=== PATIENT | female | born 2000 | race Caucasian/White ===

== ENCOUNTER 2020-08-16 09:58 | Outpatient (REF) | payer OTHER, SELFPAY | END 2020-08-16 09:59 | disposition home or self-care (01) | LOC: HO.LAB 09:58 | PROVIDERS: PCP Nurse Practitioner Family; Visit Provider Internal Medicine | DX: Z13.89 Encounter for screening for other disorder (principal) ==

== ENCOUNTER 2020-08-17 07:17 | Outpatient (REF) | payer OTHER, SELFPAY ==
[2020-08-17 08:09] LABS: Anion Gap 12 (12-20); Blood Urea Nitrogen 13 mg/dL (9-16); Carbon Dioxide 20 mmol/L (22-29); Chloride 109 mmol/L (96-108); Estimated Glomerular Filt Rate > 60; Glucose Random 88 mg/dL (60-115); Potassium 3.8 mmol/L (3.3-5.1); Sodium 137 mmol/L (135-145)
[2020-08-17 08:31] LABS: Free T4 (Free Thyroxine) 1.18 ng/dL (0.71-1.85); Thyroid Stimulating Hormone 2.31 uIU/mL (0.32-4.0)
[2020-08-18 10:31] LABS: Follicle Stimulating Hormone 5.9 mIU/mL; Lutenizing Hormone 6.2 mIU/mL; Prolactin 50.2 ng/mL; Triiodothyronine T3 Total 184 ng/dL (86-192)
[2020-08-19 17:32] LABS: Human Growth Hormone 1.1 ng/mL (< OR = 7.1)
[2020-08-19 21:27] LABS: Sex Hormone Binding Globulin 196 nmol/L (17-124)
[2020-08-19 23:01] LABS: Adrenocorticotropic Hormone 17 pg/mL (6-50)
[2020-08-21 19:52] LABS: Estradiol Ultra Sensitive 14 pg/mL
[2020-08-22 17:37] LABS: IGF-1 (Somatomedin C) 109 ng/mL (83-456); IGF-1 Z Score (Female) -1.8 SD (-2.0 - +2.0)
== END 2020-08-17 07:18 | disposition home or self-care (01) ==
LOC: HO.LAB 07:17
PROVIDERS: PCP Nurse Practitioner Family; Visit Provider Internal Medicine
DX: D35.2 Benign neoplasm of pituitary gland (principal)
CPT/HCPCS: 36415; 80048; 82024; 82533; 82670; 83001; 83002; 83003; 84146; 84270; 84305; 84439; 84443; 84480

== ENCOUNTER 2020-09-10 09:09 | Outpatient (REF) | payer OTHER, SELFPAY ==
--- NOTE | ~2020-09-10 | MR_ITS ---
EXAMINATION: MR BRAIN WITHOUT AND WITH CONTRAST CLINICAL INFORMATION: 19-year-old with question for pituitary microadenoma. COMPARISON: 08/11/2018 TECHNIQUE: Multiplanar, multisequence MRI of the brain was obtained before and after the intravenous administration of 5 mL Gadavist. FINDINGS: There is some motion artifact on these sequences, but within these limitations, the pituitary gland shows mildly heterogeneous enhancement without a discrete focal lesion and is unchanged in appearance from the previous exam. Cavernous sinuses enhance normally. No suprasellar or juxtasellar masses. The infundibulum enhances normally and appears midline and unchanged. No restricted diffusion is identified. The brain is normal in morphology and signal intensity, unchanged in appearance. No intracranial mass lesions, abnormal enhancement, space-occupying process, or mass effect are identified. The ventricular system and subarachnoid spaces appear within normal limits without hydrocephalus, stable in appearance. The visualized orbital structures are grossly unremarkable within the limitations of the study. Normal signal voids are noted in the visualized major intracranial vessels. Redemonstrated is suspicion for bilateral upper cervical lymphadenopathy, similar in appearance to the previous study with a prominent right pharyngeal tonsil, stable in appearance. Correlate with clinical history. MR/MR head/brain wo/w con IMPRESSION: 1. No significant interval change in the appearance of the pituitary gland. Somewhat heterogeneous enhancement without a discrete focal lesion is identified. No suprasellar or juxtasellar masses are seen. 2. Remainder of the brain is normal in morphology and signal. 3. Suspect upper cervical lymphadenopathy, as noted on previous study, similar in appearance and a prominent right pharyngeal tonsil, unchanged. Followup clinically.
== END 2020-09-10 09:10 | disposition home or self-care (01) ==
LOC: HO.MRI 09:09
PROVIDERS: Visit Provider Internal Medicine
DX: D35.2 Benign neoplasm of pituitary gland (principal)
CPT/HCPCS: 70553; A9585

== ENCOUNTER → 2020-09-23 11:46 | Outpatient (BNVA) | payer OTHER, SELFPAY | PROVIDERS: PCP Nurse Practitioner Family; Visit Provider Internal Medicine ==

== ENCOUNTER 2020-09-27 15:34 | Outpatient (REF) | payer OTHER, SELFPAY ==
--- NOTE | ~2020-09-27 | US_ITS ---
EXAMINATION: US SOFT TISSUE OF THE NECK CLINICAL INFORMATION: Localized enlarged lymph nodes. COMPARISON: None TECHNIQUE: Linear transducer grayscale and color Doppler examination of the neck. FINDINGS: There are bilateral cervical lymph nodes. These are normal in size and demonstrate normal ultrasound morphology and flow. There are 4 lymph nodes seen in the right neck and 3 lymph nodes seen in the left neck. There is a single lymph node seen in the mid line neck inferior to the thyroid gland. US/US soft tiss head and/or neck IMPRESSION: Small bilateral normal-appearing cervical lymph nodes.
== END 2020-09-27 15:35 | disposition home or self-care (01) ==
LOC: HO.US 15:34
PROVIDERS: PCP Nurse Practitioner Family; Visit Provider Internal Medicine
DX: R59.0 Localized enlarged lymph nodes (principal)
CPT/HCPCS: 76536

== ENCOUNTER 2020-10-04 07:36 | Outpatient (REF) | payer OTHER, SELFPAY ==
[2020-10-07 15:12] LABS: Adrenocorticotropic Hormone 6 pg/mL (6-50)
[2020-10-08 21:02] LABS: Dexamethasone 186 ng/dL
== END 2020-10-04 07:37 | disposition home or self-care (01) ==
LOC: HO.LAB 07:36
PROVIDERS: PCP Nurse Practitioner Family; Visit Provider Internal Medicine
DX: D35.2 Benign neoplasm of pituitary gland (principal)
CPT/HCPCS: 36415; 80299; 82024; 82533

== ENCOUNTER 2020-10-15 08:19 | Outpatient (REF) | payer OTHER, SELFPAY ==
--- NOTE | ~2020-10-15 | XR_ITS ---
EXAMINATION: XR CERVICAL SPINE CLINICAL INFORMATION: Cervicalgia. COMPARISON: None TECHNIQUE: 3 views of the cervical spine were obtained. FINDINGS: Reversal of the normal cervical lordosis, which may be positional or related to muscular spasm. No acute fracture or subluxation. No loss of vertebral body or intervertebral disc height. Normal atlantoaxial alignment. No lytic or blastic osseous lesion. Unremarkable prevertebral soft tissues. XR/XR cervical spine 3V IMPRESSION: Reversal of the normal cervical lordosis, which may be positional or related to muscular spasm.
== END 2020-10-15 08:20 | disposition home or self-care (01) ==
LOC: HO.HMGCX 08:19
PROVIDERS: Visit Provider Nurse Practitioner Family
DX: M54.2 Cervicalgia (principal)
CPT/HCPCS: 72040

== ENCOUNTER → 2020-11-06 09:37 | Outpatient (BNVA) | payer OTHER, SELFPAY | PROVIDERS: PCP Nurse Practitioner Family; Visit Provider Internal Medicine ==

== ENCOUNTER 2020-12-07 07:06 | Outpatient (REF) | payer OTHER, SELFPAY ==
[2020-12-07 08:05] LABS: Anion Gap 12 (12-20); Blood Urea Nitrogen 13 mg/dL (9-16); Calcium 8.9 mg/dL (8.4-10.2); Carbon Dioxide 23 mmol/L (22-29); Chloride 108 mmol/L (96-108); Estimated Glomerular Filt Rate > 60; Glucose Random 86 mg/dL (60-115); Sodium 139 mmol/L (135-145)
[2020-12-07 08:29] LABS: Free T4 (Free Thyroxine) 1.17 ng/dL (0.71-1.85); Thyroid Stimulating Hormone 2.76 uIU/mL (0.32-4.0); Vitamin D 25-OH Total 51.2 ng/mL (>30)
[2020-12-09 20:17] LABS: Triiodothyronine T3 Total 136 ng/dL (76-181)
[2020-12-10 03:07] LABS: Prolactin Undiluted 56.2 ng/mL
== END 2020-12-07 07:07 | disposition home or self-care (01) ==
LOC: HO.LAB 07:06
PROVIDERS: PCP Nurse Practitioner Family; Visit Provider Internal Medicine
DX: D35.2 Benign neoplasm of pituitary gland (principal); E55.9 Vitamin D deficiency, unspecified
CPT/HCPCS: 36415; 80048; 82306; 84146; 84439; 84443; 84480

== ENCOUNTER 2020-12-10 07:57 | Outpatient (REF) | payer OTHER, SELFPAY ==
--- NOTE | 2020-12-10 07:56 | EEG_ITS ---
FINDINGS: The waking background activity consists of a well-defined 8 to 9 hertz moderate voltage alpha frequency, intermixed anteriorly with low-voltage fast frequencies. Photic stimulation is without activation. Hyperventilation was omitted. Occasional isolated sharp transients are seen in the frontal regions. IMPRESSION: This EEG is generally considered within normal limits; however, a few isolated sharp transients are suggestive of some element of cerebral irritability. If a seizure disorder is strongly suspected, a 24-hour ambulatory EEG is recommended. MD DEMETRA Barrios/ALEISHA / [id number]
== END 2020-12-10 07:58 | disposition home or self-care (01) ==
LOC: HO.NEURO 07:57
PROVIDERS: PCP Nurse Practitioner Family; Visit Provider Nurse Practitioner Family
DX: R56.9 Unspecified convulsions (principal)
CPT/HCPCS: 95816

== ENCOUNTER → 2020-12-18 11:52 | Outpatient (BNVA) | payer OTHER, SELFPAY | PROVIDERS: PCP Nurse Practitioner Family; Visit Provider Internal Medicine ==

== ENCOUNTER 2021-01-13 10:00 | Outpatient (RCR) | payer OTHER, SELFPAY ==
--- NOTE | 2020-11-18 08:24 | MHC.PT.EP ---
[facility] [place] Office [place] Office [place] Office [address] April Hansen [address] [phone] F: [phone] F: [phone] F: [phone] F: [phone] Physical Therapy Plan of Care Date of Evaluation: Date of Surgery: Diagnosis: Cervical pain Assessment: Pt is a 20 y/o female referred to PT for cervical pain who presents with signs and Sx consistent with cervical instability resulting in decreased tolerance and ability for static postures, lifting/ pushing/ pulling objects of weight, reading / knitting for duration as well as disturbed sleep, and frequent MELCHOR secondary to decreased cervical and scapular posture, decreased cervical ROM and strength, decreased scapular strength, increased cervical tissue tension, and pain. Pt is deemed an appropriate candidate to receive skilled PT in order to address her physical limitations to improve her functional ability. Frequency and Duration: The patient will be seen 2 x / wk x 5 wks. Short Term Goals: initiate HEP with evidence of compliance. Pt will progress to resisted scapular posture exercises. Improve baseline pain from 6/10 to < 4/10. Residential Goals: I with HEP. DNF endurance improved form 4-5 seconds to > 24 sec in order to demonstrate improved strength of deep cervical stabilizers. Pt will no longer be disturbed of sleep d/t cervical pain. No longer painful with reading or knitting. Treatment Plan: Modalities to reduce pain, spasms and effusion. Manual therapy to restore motion and function. Therapeutic exercise to improve strength and flexibility. Neuromuscular re-education for posture and balance. Therapeutic activities to return to functional activities of daily living. Electronically signed by: Ananth Gates PT. Please sign and return to therapist. Thank you for your referral.
--- NOTE | 2021-01-13 10:50 | MHC.PT.DC ---
[facility] [place] Office [place] Office [place] Office [address] April Hansen [address] [phone] F: [phone] F: [phone] F: [phone] F: [phone] Physical Therapy Discharge Report Diagnosis: Cervical pain Date of Surgery: Date of Evaluation: 11/08/20 Date of Discharge: 01/13/21 Treatments to Date: 8 Cancellations to Date: 4 No Shows to Date: 0 Discharge Status: Achieved Goals Improved Function Independent with HEP Discharge Summary: Pt demonstrates I with HEP and we discussed band progression at home for continued HEP. She has met all goals except improved deep neck flexor endurance (9seconds) and is now appropriate for d/c. Reviewed HEP and pt with no good tolerance for exercise today. Electronically signed by: Jaycee Dejesus PT Please sign and return to therapist. Thank you for your referral.
== END 2021-01-13 10:50 | disposition home or self-care (01) ==
LOC: HO.PTCHIC 10:00
PROVIDERS: PCP Nurse Practitioner Family; Visit Provider Nurse Practitioner Family
DX: M54.2 Cervicalgia (principal)
CPT/HCPCS: 97014; 97110; 97140; 97162

== ENCOUNTER 2021-01-30 12:41 | Outpatient (REF) | payer OTHER, SELFPAY ==
--- NOTE | 2021-01-30 12:44 | EEG_ITS ---
The waking background activity consists of a [id number]-kq-luxpumox voltage, symmetrical, 9 hertz alpha, intermixed anteriorly with low-voltage fast frequencies. Drowsiness is characterized by theta slowing. Occasional bifrontal 6.5 to 7 hertz higher amplitude theta is seen. During sleep, symmetrical frontal central sleep spindles develop over both hemispheres. Arousals are unremarkable. The patient is symptomatic with ringing in the ears and dizziness on 3 occasions without any change in her background activity. No epileptiform discharges seen. IMPRESSION: This 24-hour ambulatory EEG is within normal limits with no abnormalities seen. During the time, the patient complains of dizziness. MD DEMETRA Barrios/ALEISHA / [id number]
== END 2021-01-30 12:42 | disposition home or self-care (01) ==
LOC: HO.NEURO 12:41
PROVIDERS: PCP Internal Medicine; Visit Provider Nurse Practitioner Family
DX: R56.9 Unspecified convulsions (principal)
CPT/HCPCS: 95708

== ENCOUNTER 2021-02-10 09:00 | Outpatient (REF) | payer OTHER, SELFPAY ==
--- NOTE | ~2021-02-10 | XR_ITS ---
EXAMINATION: XR LUMBOSACRAL SPINE WITH OBLIQUES CLINICAL INFORMATION: M54.5 - Low back pain. COMPARISON: None. TECHNIQUE: AP, both oblique, and lateral views of the lumbar spine. Lateral view of the lumbosacral junction. FINDINGS: There is normal lumbar segmentation with 5 [id number]-[id number] lumbar vertebrae of normal height and normal lumbar lordosis. There is no lumbar vertebral compression, spondylolisthesis, disc narrowing, destructive process. There is no spondylolysis or spondylolisthesis. The SI joints and visualized sacrum are unremarkable. XR/XR lumbar spine 4V min IMPRESSION: Unremarkable examination.
== END 2021-02-10 09:01 | disposition home or self-care (01) ==
LOC: HO.HMGCX 09:00
PROVIDERS: PCP Nurse Practitioner Family; Visit Provider Nurse Practitioner Family
DX: M54.5 Low back pain (principal); M79.605 Pain in left leg
CPT/HCPCS: 72110

== ENCOUNTER 2021-03-03 10:44 | Outpatient (RCR) | payer OTHER, SELFPAY ==
--- NOTE | 2021-03-03 13:18 | MHC.PT.EP ---
[facility] [place] Office [place] Office [place] Office [address] April Hansen [address] [phone] F: [phone] F: [phone] F: [phone] F: [phone] Physical Therapy Plan of Care Date of Evaluation: Date of Surgery: n/a Diagnosis: low back pain Assessment: Patient is a 20 year old R handed female who presents with s/s consistent with low back pain. However, she has no s/s today or for the last 3 weeks. No impairments or functional limitations currently. We did educate significant on body mechanics, postures, and s/s management when they arise. We decided to hold on future appts at this time. Due to no recent symptoms. Frequency and Duration: The patient will be seen hold on future appts at this time. Short Term Goals: Half-Way Goals: Treatment Plan: Modalities to reduce pain, spasms and effusion. Manual therapy to restore motion and function. Therapeutic exercise to improve strength and flexibility. Neuromuscular re-education for posture and balance. Therapeutic activities to return to functional activities of daily living. Electronically signed by: Timbo Acevedo PT Please sign and return to therapist. Thank you for your referral.
--- NOTE | 2021-07-25 07:48 | MHC.PT.DC ---
[facility] [place] Office [place] Office [place] Office [address] April Hansen [address] [phone] F: [phone] F: [phone] F: [phone] F: [phone] Physical Therapy Discharge Report Diagnosis: low back pain Date of Surgery: n/a Date of Evaluation: 03/03/21 Date of Discharge: 03/03/21 Treatments to Date: 1 Cancellations to Date: No Shows to Date: Discharge Status: Independent with HEP Discharge Summary: Pt with no s/s at evaluation. We decided to proceed with HEP with follow up as needed which. Follow up was not needed. Electronically signed by: Timbo Acevedo PT Please sign and return to therapist. Thank you for your referral.
== END 2021-04-17 08:00 | disposition home or self-care (01) ==
LOC: HO.PTCHIC 10:44
PROVIDERS: PCP Nurse Practitioner Family; Visit Provider Nurse Practitioner Family
DX: M54.5 Low back pain (principal); M79.605 Pain in left leg
CPT/HCPCS: 97162

== ENCOUNTER 2021-04-28 08:33 | Outpatient (REF) | payer OTHER, SELFPAY ==
[2021-04-28 11:42] LABS: Appearance Urine HAZY; Color Urine YELLOW; Glucose Urine UA NEG (NEG); Leukocyte Esterase Urine NEG (NEG); Nitrite Urine NEG (NEG); Urine Blood NEG (NEG); Urine Ketones NEG (NEG); Urine Protein NEG (NEG-TRACE)
[2021-04-28 11:54] LABS: Alanine Aminotransferase 20 U/L (0-31); Albumin Level 3.9 g/dL (3.5-5.0); Alkaline Phosphatase 90 U/L (39-117); Anion Gap 13 (12-20); Aspartate Amino Transferase 17 U/L (5-31); Bilirubin Total 0.2 mg/dL (0.0-1.0); Blood Urea Nitrogen 11 mg/dL (9-16); Carbon Dioxide 24 mmol/L (22-29); Chloride 107 mmol/L (96-108); Cholesterol 137 mg/dL; Estimated Glomerular Filt Rate > 60; Glucose Fasting 83 mg/dL (60-99); HDL Cholesterol 44 mg/dL; LDL Cholesterol Calculated 77 mg/dl; Potassium 4.2 mmol/L (3.3-5.1); Sodium 140 mmol/L (135-145); Total Protein 7.1 g/dL (6.5-8.0); Triglycerides 82 mg/dL
[2021-04-28 12:17] LABS: TSH reflex Free T4 1.92 uIU/mL (0.32-4.0)
== END 2021-04-28 08:34 | disposition home or self-care (01) ==
LOC: HO.HMGCLDS 08:33
PROVIDERS: PCP Nurse Practitioner Family; Visit Provider Nurse Practitioner Family
DX: Z00.00 Encounter for general adult medical examination without abnormal findings (principal)
CPT/HCPCS: 36415; 80053; 80061; 81003; 84443

== ENCOUNTER 2021-05-20 09:02 | Outpatient (REF) | payer OTHER, SELFPAY ==
[2021-05-21 14:30] LABS: CT PCR NOT DETECTED (Not Detect.); NG PCR NOT DETECTED (Not Detect.)
[2021-05-22 09:41] LABS: BV Int Neg Control Negative (Negative); BV Int Pos Control Positive (Positive)
== END 2021-05-20 09:03 | disposition home or self-care (01) ==
LOC: HO.LAB 09:02
PROVIDERS: Visit Provider Advanced Practice Midwife
DX: Z01.419 Encounter for gynecological examination (general) (routine) without abnormal findings (principal); Z20.2 Contact with and (suspected) exposure to infections with a predominantly sexual mode of transmission; E66.01 Morbid (severe) obesity due to excess calories; E28.2 Polycystic ovarian syndrome; E22.9 Hyperfunction of pituitary gland, unspecified; D35.2 Benign neoplasm of pituitary gland
CPT/HCPCS: 87480; 87491; 87510; 87591; 87660; 88142

== ENCOUNTER 2021-07-07 14:37 | Outpatient (REF) | payer OTHER, SELFPAY | END 2021-07-07 14:38 | disposition home or self-care (01) | LOC: HO.LAB 14:37 | PROVIDERS: PCP Nurse Practitioner Family; Visit Provider Advanced Practice Midwife | DX: Z01.419 Encounter for gynecological examination (general) (routine) without abnormal findings (principal); E03.9 Hypothyroidism, unspecified; E06.3 Autoimmune thyroiditis; D35.2 Benign neoplasm of pituitary gland; E22.8 Other hyperfunction of pituitary gland; J45.909 Unspecified asthma, uncomplicated; H40.059 Ocular hypertension, unspecified eye; E55.9 Vitamin D deficiency, unspecified; E66.01 Morbid (severe) obesity due to excess calories; Z83.3 Family history of diabetes mellitus; Z83.6 Family history of other diseases of the respiratory system; Z81.8 Family history of other mental and behavioral disorders; Z88.8 Allergy status to other drugs, medicaments and biological substances | CPT/HCPCS: 88142; 99212 ==

== ENCOUNTER 2021-11-17 08:08 | Outpatient (REF) | payer OTHER, SELFPAY ==
[2021-11-17 08:51] LABS: Anion Gap 11 (12-20); Blood Urea Nitrogen 9 mg/dL (9-16); Carbon Dioxide 24 mmol/L (22-29); Chloride 106 mmol/L (96-108); Estimated Glomerular Filt Rate > 60; Glucose Random 84 mg/dL (60-115); Potassium 4.2 mmol/L (3.3-5.1); Sodium 137 mmol/L (135-145)
[2021-11-17 09:10] LABS: Osmolality, Serum 282 mosm/kg (281-305)
[2021-11-17 09:14] LABS: Free T4 (Free Thyroxine) 1.15 ng/dL (0.71-1.85); Thyroid Stimulating Hormone 4.01 uIU/mL (0.32-4.0)
[2021-11-18 08:02] LABS: Triiodothyronine T3 Total 190 ng/dL (76-181)
[2021-11-18 09:06] LABS: Sex Hormone Binding Globulin 203 nmol/L (17-124)
[2021-11-18 14:45] LABS: Adrenocorticotropic Hormone 21 pg/mL (6-50)
[2021-11-18 23:45] LABS: Follicle Stimulating Hormone 5.8 mIU/mL; Lutenizing Hormone 10.6 mIU/mL; Prolactin Undiluted 30.3 ng/mL
[2021-11-21 13:46] LABS: IGF-1 (Somatomedin C) 61 ng/mL (83-456); IGF-1 Z Score (Female) -2.6 SD (-2.0 - +2.0)
[2021-11-29 03:25] LABS: Estradiol Free 0.44 pg/mL; Estradiol, Ultrasensitive 36 pg/mL
== END 2021-11-17 08:09 | disposition home or self-care (01) ==
LOC: HO.LAB 08:08
PROVIDERS: PCP Nurse Practitioner Family; Visit Provider Internal Medicine
DX: D35.2 Benign neoplasm of pituitary gland (principal)
CPT/HCPCS: 36415; 80048; 82024; 82670; 82681; 83001; 83002; 83930; 84146; 84270; 84305; 84439; 84443; 84480

== ENCOUNTER 2021-11-25 07:46 | Outpatient (REF) | payer OTHER, SELFPAY ==
--- NOTE | ~2021-11-25 | MR_ITS ---
EXAMINATION: MR BRAIN WITHOUT AND WITH CONTRAST CLINICAL INFORMATION: 21-year-old undergoing follow up for pituitary lesion. COMPARISON: 09/10/2020 MRI. TECHNIQUE: Multiplanar, multisequence MRI of the brain/sella was obtained before and after the intravenous administration of 5 mL Gadavist. FINDINGS: Redemonstrated is mildly heterogeneous enhancement of the pituitary gland with overall stable size of the gland without a discrete focal lesion within the limitations of the study (motion artifact). Cavernous sinuses enhance normally. The infundibulum enhances normally and appears midline without significant thickening. Normal signal voids in the cavernous carotids. No suprasellar or juxtasellar mass lesions are identified. No focal reduced diffusion is seen to suggest acute or subacute cerebral ischemia. The brain is normal in morphology and signal intensity. No intracranial mass lesions, abnormal enhancement, space-occupying process or mass effect are identified throughout the remainder of the brain. There are no extra-axial fluid collections. The ventricular system and subarachnoid spaces are within normal limits stable in appearance without hydrocephalus. Normal signal voids are seen in the visualized major intracranial vessels. There is mucosal inflammatory change in the ethmoid complex and maxillary sinuses which have progressed from the previous exam. Redemonstrated are prominent pharyngeal tonsils bilaterally. Bilateral retropharyngeal lymph nodes are more prominent in size on the current study compared to the previous exam but still not pathologically enlarged for this location. Multiple small intraparotid lymph nodes are noted bilaterally stable in appearance. Redemonstrated are multiple bilateral IJ chain lymph nodes, some of which are quite prominent in size with submandibular lymph nodes bilaterally. Some of these nodes are enlarged. MR/MR head/brain wo/w con IMPRESSION: 1. Essentially no significant interval change in heterogeneity of enhancement of the pituitary gland, difficult to discern a discrete lesion within the limitations of the study as described above. 2. Upper cervical lymphadenopathy and prominent pharyngeal tonsils again noted with some progression of upper cervical lymphadenopathy now with enlarging retropharyngeal lymph nodes since the previous study. Correlate with any history for recent infectious or inflammatory disease. 3. Development of bilateral maxillary sinus mucosal thickening and progression of ethmoid sinus mucosal thickening.
== END 2021-11-25 07:47 | disposition home or self-care (01) ==
LOC: HO.MRI 07:46
PROVIDERS: PCP Nurse Practitioner Family; Visit Provider Internal Medicine
DX: D35.2 Benign neoplasm of pituitary gland (principal)
CPT/HCPCS: 70553; A9585

== ENCOUNTER 2022-01-19 07:16 | Outpatient (REF) | payer OTHER, SELFPAY ==
[2022-01-19 08:09] LABS: Anion Gap 11 (12-20); Blood Urea Nitrogen 12 mg/dL (9-16); Calcium 8.7 mg/dL (8.4-10.2); Carbon Dioxide 23 mmol/L (22-29); Chloride 108 mmol/L (96-108); Estimated Glomerular Filt Rate > 60; Glucose Random 86 mg/dL (60-115); Sodium 138 mmol/L (135-145)
[2022-01-19 08:33] LABS: Thyroid Stimulating Hormone 5.47 uIU/mL (0.32-4.0)
[2022-01-19 09:08] LABS: T4 Thyroxine 14.7 ug/dL (4.5-12.0)
[2022-01-20 21:26] LABS: Adrenocorticotropic Hormone 27 pg/mL (6-50)
[2022-01-21 08:57] LABS: Triiodothyronine T3 Total 207 ng/dL (76-181)
[2022-01-21 23:37] LABS: Prolactin Undiluted 39.2 ng/mL
[2022-01-29 06:02] LABS: FT4 by Equilib. Dialysis 1.5 ng/dL (0.9-2.2)
== END 2022-01-19 07:17 | disposition home or self-care (01) ==
LOC: HO.LAB 07:16
PROVIDERS: PCP Nurse Practitioner Family; Visit Provider Internal Medicine
DX: D35.2 Benign neoplasm of pituitary gland (principal); E22.9 Hyperfunction of pituitary gland, unspecified
CPT/HCPCS: 36415; 80048; 82024; 82533; 84146; 84436; 84439; 84443; 84480

== ENCOUNTER 2022-01-24 07:21 | Outpatient (REF) | payer OTHER, SELFPAY ==
[2022-01-24 09:35] LABS: Free T4 (Free Thyroxine) 1.19 ng/dL (0.71-1.85); Thyroid Stimulating Hormone 6.98 uIU/mL (0.32-4.0)
[2022-01-26 06:11] LABS: Triiodothyronine T3 Total 195 ng/dL (76-181)
== END 2022-01-24 07:22 | disposition home or self-care (01) ==
LOC: HO.LAB 07:21
PROVIDERS: PCP Nurse Practitioner Family; Visit Provider Internal Medicine
DX: E03.9 Hypothyroidism, unspecified (principal)
CPT/HCPCS: 83519; 83520; 84439; 84443; 84480

== ENCOUNTER 2022-03-16 07:23 | Outpatient (REF) | payer OTHER, SELFPAY ==
[2022-03-16 08:34] LABS: Free T4 (Free Thyroxine) 1.18 ng/dL (0.71-1.85); Thyroid Stimulating Hormone 6.71 uIU/mL (0.32-4.0)
[2022-03-17 09:53] LABS: Triiodothyronine T3 Free 3.3 pg/mL (2.3-4.2); Triiodothyronine T3 Total 180 ng/dL (76-181)
[2022-03-20 05:42] LABS: Thyroxine Binding Globulin 44.7 mcg/mL (13.5-30.9)
[2022-03-21 05:42] LABS: FT4 by Equilib. Dialysis 1.2 ng/dL (0.9-2.2)
== END 2022-03-16 07:24 | disposition home or self-care (01) ==
LOC: HO.LAB 07:23
PROVIDERS: PCP Nurse Practitioner Family; Visit Provider Internal Medicine
DX: E03.9 Hypothyroidism, unspecified (principal)
CPT/HCPCS: 36415; 84439; 84442; 84443; 84480; 84481

== ENCOUNTER 2022-05-11 07:24 | Outpatient (REF) | payer OTHER, SELFPAY ==
[2022-05-11 08:40] LABS: Free T4 (Free Thyroxine) 1.18 ng/dL (0.71-1.85); Thyroid Stimulating Hormone 3.44 uIU/mL (0.32-4.0)
== END 2022-05-11 07:25 | disposition home or self-care (01) ==
LOC: HO.LAB 07:24
PROVIDERS: PCP Nurse Practitioner Family; Visit Provider Internal Medicine
DX: E03.9 Hypothyroidism, unspecified (principal)
CPT/HCPCS: 36415; 84439; 84443

== ENCOUNTER 2022-06-22 07:46 | Outpatient (REF) | payer OTHER, SELFPAY ==
[2022-06-22 09:07] LABS: Free T4 (Free Thyroxine) 1.17 ng/dL (0.71-1.85); Thyroid Stimulating Hormone 2.27 uIU/mL (0.32-4.0)
[2022-06-24 06:14] LABS: Triiodothyronine T3 Total 112 ng/dL (76-181)
[2022-06-26 04:04] LABS: Thyroxine Binding Globulin 35.5 mcg/mL (13.5-30.9)
== END 2022-06-22 07:47 | disposition home or self-care (01) ==
LOC: HO.LAB 07:46
PROVIDERS: PCP Nurse Practitioner Family; Visit Provider Internal Medicine
DX: E03.9 Hypothyroidism, unspecified (principal)
CPT/HCPCS: 36415; 84439; 84442; 84443; 84480

== ENCOUNTER 2022-07-13 08:11 | Outpatient (REF) | payer OTHER, SELFPAY ==
[2022-07-13 11:16] LABS: MANUAL DIFF FLAG NO
[2022-07-13 11:29] LABS: Basophils Absolute Auto 0.1 X10*3/uL (0.0-0.2); Basophils Percent Auto 0.4 % (0-2); Eosinophils Absolute Auto 0.2 X10*3/uL (0.0-0.4); Eosinophils Percent Auto 1.3 % (0-4); Hemoglobin 13.5 g/dl (12.0-16.0); Imm Gran Abs Auto 0.06 X10*3/uL (0.00-0.03); Imm Gran Pct Auto 0.5 % (0.0-0.4); Lymphocytes Percent Auto 16.9 % (20-40); Mean Corpuscular HGB Conc 31.4 g/dl (31.0-35.0); Mean Corpuscular Hemoglobin 26.3 pg (27.0-33.0); Mean Corpuscular Volume 83.8 fL (80.0-98.0); Mean Platelet Volume 8.8 fL (9.4-12.3); Monocytes Absolute Auto 0.6 X10*3/uL (0.1-1.2); Monocytes Percent Auto 5.5 % (2-11); Neutrophils Absolute Auto 8.7 x10*3/uL (2.0-8.3); Neutrophils Percent Auto 75.4 % (45-73); Platelet Count 392 X10*3/uL (160-400); Red Blood Count 5.13 X10*6/uL (4.20-5.50); Red Cell Distribution Width 13.7 % (11.0-16.0); White Blood Count 11.5 X10*3/uL (4.8-10.8)
[2022-07-13 11:44] LABS: Appearance Urine Clear; Color Urine Yellow; Glucose Urine UA Negative (Negative); Leukocyte Esterase Urine Negative (Negative); Nitrite Urine Negative (Negative); PH 7.5 (5.0-9.0); UMIC TRIGGER UACC YES; Urine Blood Small (1+) (Negative); Urine Ketones Negative (Negative); Urine Protein Negative (Neg-Trace)
[2022-07-13 11:47] LABS: Alanine Aminotransferase 20 U/L (0-31); Alkaline Phosphatase 82 U/L (39-117); Anion Gap 12 (12-20); Aspartate Amino Transferase 14 U/L (5-31); Bilirubin Total 0.2 mg/dL (0.0-1.0); Blood Urea Nitrogen 10 mg/dL (9-16); Calcium 8.7 mg/dL (8.4-10.2); Carbon Dioxide 21 mmol/L (22-29); Chloride 109 mmol/L (96-108); Cholesterol 147 mg/dL; Estimated Glomerular Filt Rate > 60; Glucose Fasting 108 mg/dL (60-99); HDL Cholesterol 51 mg/dL; LDL Cholesterol Calculated 86 mg/dl; Potassium 4.3 mmol/L (3.3-5.1); Sodium 138 mmol/L (135-145); Total Protein 7.2 g/dL (6.5-8.0); Triglycerides 50 mg/dL
[2022-07-13 11:48] LABS: Bacteria Urine None Seen (None Seen); Hyaline Casts Urine 0-2 /LPF (0-2); WBC Urine 0-5 /HPF (0-5)
[2022-07-13 12:00] LABS: TSH reflex Free T4 1.02 uIU/mL (0.32-4.0)
== END 2022-07-13 08:12 | disposition home or self-care (01) ==
LOC: HO.HMGCLDS 08:11
PROVIDERS: PCP Nurse Practitioner Family; Visit Provider Nurse Practitioner Family
DX: F41.0 Panic disorder [episodic paroxysmal anxiety] (principal)
CPT/HCPCS: 36415; 80053; 80061; 81001; 84443; 85025

== ENCOUNTER → 2022-08-03 10:15 | Outpatient (BNVA) | payer OTHER, SELFPAY | PROVIDERS: PCP Nurse Practitioner Family; Visit Provider Hospitalist | DX: J45.909 Unspecified asthma, uncomplicated (principal); J30.9 Allergic rhinitis, unspecified; G47.33 Obstructive sleep apnea (adult) (pediatric); Z79.899 Other long term (current) drug therapy | CPT/HCPCS: 99202 ==

== ENCOUNTER 2022-08-17 08:32 | Outpatient (REF) | payer OTHER, SELFPAY ==
--- NOTE | 2022-08-17 14:03 | PFT_ITS ---
INDICATION: Asthma. SPIROMETRY: FEV1 to FVC of 90% with an FEV1 of 3.12 L, which is 106% predicted and an FVC of 3.47 L, which is 104% predicted. No significant response to bronchodilator is noted. Maximum voluntary ventilation 90% of predicted. LUNG VOLUMES: Total lung capacity 96% predicted. DIFFUSION CAPACITY: DLCO of 157% of predicted. COMPARISONS: None. INTERPRETATION: No obstructive, nor restrictive ventilatory defects identified. No significant response to bronchodilators noted. No evidence of any small airway disease. Normal maximum voluntary ventilation is noted. Lung volumes are also within normal limits except for decrease in the expiratory reserve volume secondary to an elevated BMI. In addition to that, the patient has significant elevation in his diffusion capacity. Therefore exogenous exposure to carbon monoxide need to be considered such as secondhand smoke or carbon monoxide in her surroundings. Need to also make sure that home carbon monoxide alarms are working in her household. In addition, the patient is going to have the methacholine challenge to further address the question of hyperactive airways and diagnosis of asthma. Clinical correlation warranted. MD MICHELA Tran/MODL / [id number]
== END 2022-08-17 08:33 | disposition home or self-care (01) ==
LOC: HO.RESP 08:32
PROVIDERS: PCP Nurse Practitioner Family; Visit Provider Hospitalist
DX: J45.909 Unspecified asthma, uncomplicated (principal)
CPT/HCPCS: 94060; 94727; 94729

== ENCOUNTER → 2022-08-25 09:38 | Outpatient (REF) | payer OTHER, SELFPAY ==
--- NOTE | ~2022-08-25 | XR_ITS ---
EXAMINATION: XR CHEST CLINICAL INFORMATION: J45.909 - Unspecified asthma, uncomplicated COMPARISON: Chest radiographs 09/24/2016 TECHNIQUE: 2 views of the chest were obtained. FINDINGS: Lungs are clear. No hyperinflation, infiltrate, pleural reaction, or effusion. Heart size normal. Vascularity normal. The hilar and mediastinal contours and bony structures are unremarkable. XR/XR chest 2V IMPRESSION: Unremarkable examination.
[2022-08-25 10:01] LABS: MANUAL DIFF FLAG NO
[2022-08-25 10:50] LABS: Basophils Percent Auto 0.3 % (0-2); Eosinophils Absolute Auto 0.5 X10*3/uL (0.0-0.4); Eosinophils Percent Auto 4.4 % (0-4); Hematocrit 41.7 % (37.0-47.0); Hemoglobin 13.3 g/dl (12.0-16.0); Imm Gran Abs Auto 0.05 X10*3/uL (0.00-0.03); Imm Gran Pct Auto 0.5 % (0.0-0.4); Lymphocytes Absolute Auto 2.7 X10*3/uL (1.2-4.9); Lymphocytes Percent Auto 26.8 % (20-40); Mean Corpuscular HGB Conc 31.9 g/dl (31.0-35.0); Mean Corpuscular Hemoglobin 26.3 pg (27.0-33.0); Mean Corpuscular Volume 82.6 fL (80.0-98.0); Mean Platelet Volume 8.9 fL (9.4-12.3); Monocytes Absolute Auto 0.7 X10*3/uL (0.1-1.2); Monocytes Percent Auto 6.5 % (2-11); Neutrophils Absolute Auto 6.2 x10*3/uL (2.0-8.3); Neutrophils Percent Auto 61.5 % (45-73); Platelet Count 396 X10*3/uL (160-400); Red Blood Count 5.05 X10*6/uL (4.20-5.50); Red Cell Distribution Width 13.2 % (11.0-16.0); White Blood Count 10.1 X10*3/uL (4.8-10.8)
[2022-08-25 11:29] LABS: Erythrocyte Sedimentation Rate 14 MM/HR (0-20)
[2022-08-25 11:34] LABS: Thyroid Stimulating Hormone 3.16 uIU/mL (0.32-4.0)
[2022-08-25 11:57] LABS: Appearance Urine Clear; Color Urine Yellow; Glucose Urine UA Negative (Negative); Nitrite Urine Negative (Negative); PH 6.5 (5.0-9.0); Urine Blood Negative (Negative); Urine Ketones Negative (Negative); Urine Protein Negative (Neg-Trace)
[2022-08-25 11:58] LABS: Leukocyte Esterase Urine Negative (Negative)
[2022-08-26 19:43] LABS: Immunoglobulin E 429 kU/L (<OR=114)
== END ==
LOC: HO.SL 09:38
PROVIDERS: Internal Medicine; PCP Nurse Practitioner Family; Visit Provider Hospitalist
DX: F41.0 Panic disorder [episodic paroxysmal anxiety] (principal); E03.9 Hypothyroidism, unspecified; G47.33 Obstructive sleep apnea (adult) (pediatric); J45.909 Unspecified asthma, uncomplicated
CPT/HCPCS: 36415; 71046; 81003; 82785; 84439; 84443; 85025; 85652; 86003; 95806

== ENCOUNTER → 2022-08-31 09:33 | Outpatient (BNVA) | payer OTHER, SELFPAY | PROVIDERS: PCP Nurse Practitioner Family; Visit Provider Hospitalist | DX: J45.50 Severe persistent asthma, uncomplicated (principal); G47.33 Obstructive sleep apnea (adult) (pediatric); J30.9 Allergic rhinitis, unspecified | CPT/HCPCS: 99212 ==

== ENCOUNTER 2022-09-21 09:18 | Outpatient (REF) | payer OTHER, SELFPAY | END 2022-09-21 09:19 | disposition home or self-care (01) | LOC: HO.LAB 09:18 | PROVIDERS: PCP Nurse Practitioner Family; Visit Provider Hospitalist | DX: J45.909 Unspecified asthma, uncomplicated (principal) | CPT/HCPCS: 36415; 86003 ==

== ENCOUNTER → 2022-10-12 07:51 | Outpatient (BNVA) | payer OTHER, SELFPAY | PROVIDERS: PCP Nurse Practitioner Family; Visit Provider Internal Medicine | DX: D35.2 Benign neoplasm of pituitary gland (principal); E06.3 Autoimmune thyroiditis; R59.0 Localized enlarged lymph nodes | CPT/HCPCS: 99212 ==

== ENCOUNTER 2022-11-02 07:09 | Outpatient (REF) | payer OTHER, SELFPAY ==
[2022-11-02 07:35] LABS: MANUAL DIFF FLAG NO
[2022-11-02 07:57] LABS: Basophils Percent Auto 0.2 % (0-2); Eosinophils Absolute Auto 0.3 X10*3/uL (0.0-0.4); Eosinophils Percent Auto 4.2 % (0-4); Hematocrit 40.7 % (37.0-47.0); Hemoglobin 13.1 g/dl (12.0-16.0); Imm Gran Abs Auto 0.02 X10*3/uL (0.00-0.03); Imm Gran Pct Auto 0.2 % (0.0-0.4); Lymphocytes Absolute Auto 3.2 X10*3/uL (1.2-4.9); Lymphocytes Percent Auto 39.3 % (20-40); Mean Corpuscular HGB Conc 32.2 g/dl (31.0-35.0); Mean Corpuscular Hemoglobin 26.4 pg (27.0-33.0); Mean Corpuscular Volume 81.9 fL (80.0-98.0); Mean Platelet Volume 8.7 fL (9.4-12.3); Monocytes Absolute Auto 0.6 X10*3/uL (0.1-1.2); Monocytes Percent Auto 7.7 % (2-11); Neutrophils Absolute Auto 3.9 x10*3/uL (2.0-8.3); Neutrophils Percent Auto 48.4 % (45-73); Platelet Count 359 X10*3/uL (160-400); Red Blood Count 4.97 X10*6/uL (4.20-5.50); Red Cell Distribution Width 13.2 % (11.0-16.0); White Blood Count 8.1 X10*3/uL (4.8-10.8)
[2022-11-02 08:13] LABS: Appearance Urine Clear; Color Urine Yellow; Glucose Urine UA Negative (Negative); Leukocyte Esterase Urine Trace (Negative); Nitrite Urine Negative (Negative); UMIC TRIGGER UACC YES; Urine Blood Negative (Negative); Urine Ketones Negative (Negative); Urine Protein Negative (Neg-Trace)
[2022-11-02 08:16] LABS: Bacteria Urine None Seen (None Seen); Hyaline Casts Urine 0-2 /LPF (0-2); RBC Urine 0-2 /HPF (0-2); Squamous Epithelial Cell Urine 0-2 /HPF (0-2); WBC Urine 0-5 /HPF (0-5)
[2022-11-02 08:57] LABS: Osmolality, Serum 283 mosm/kg (281-305)
[2022-11-02 09:01] LABS: Free T4 (Free Thyroxine) 1.18 ng/dL (0.71-1.85); Thyroid Stimulating Hormone 3.13 uIU/mL (0.32-4.0)
[2022-11-02 09:11] LABS: Cortisol Random 12.3 ug/dL
[2022-11-02 09:16] LABS: Alanine Aminotransferase 25 U/L (0-31); Alkaline Phosphatase 81 U/L (39-117); Anion Gap 13 (12-20); Aspartate Amino Transferase 18 U/L (5-31); Bilirubin Total 0.4 mg/dL (0.0-1.0); Blood Urea Nitrogen 9 mg/dL (9-16); Calcium 9.2 mg/dL (8.4-10.2); Carbon Dioxide 24 mmol/L (22-29); Chloride 106 mmol/L (96-108); Cholesterol 144 mg/dL; Estimated Glomerular Filt Rate > 60; HDL Cholesterol 46 mg/dL; LDL Cholesterol Calculated 86 mg/dl; Potassium 3.8 mmol/L (3.3-5.1); Sodium 139 mmol/L (135-145); Total Protein 7.3 g/dL (6.5-8.0); Triglycerides 64 mg/dL
[2022-11-02 11:40] LABS: Glucose 2 Hour 106 mg/dL
[2022-11-02 11:56] LABS: Glucose 1 Hour 104 mg/dL
[2022-11-02 12:01] LABS: Glucose Fasting 81 mg/dL (60-99); Glucose Random 80 mg/dL (60-115)
[2022-11-02 14:12] LABS: Glucose Fasting 81 mg/dL (60-99)
[2022-11-04 05:47] LABS: Triiodothyronine T3 Total 181 ng/dL (76-181)
[2022-11-04 16:53] LABS: Sex Hormone Binding Globulin 168 nmol/L (17-124)
[2022-11-04 23:24] LABS: Follicle Stimulating Hormone 9.5 mIU/mL; Lutenizing Hormone 9.7 mIU/mL; Prolactin Undiluted 39.2 ng/mL
[2022-11-06 00:53] LABS: Estradiol Ultra Sensitive 37 pg/mL
[2022-11-06 05:43] LABS: Adrenocorticotropic Hormone 15 pg/mL (6-50)
[2022-11-07 14:33] LABS: IGF-1 (Somatomedin C) 91 ng/mL (83-456); IGF-1 Z Score (Female) -1.7 SD (-2.0 - +2.0)
== END 2022-11-02 07:10 | disposition home or self-care (01) ==
LOC: HO.LAB 07:09
PROVIDERS: Absent Provider Internal Medicine; PCP Nurse Practitioner Family; Visit Provider Nurse Practitioner Family
DX: Z00.00 Encounter for general adult medical examination without abnormal findings (principal); D35.2 Benign neoplasm of pituitary gland; E28.2 Polycystic ovarian syndrome
CPT/HCPCS: 36415; 80048; 80053; 80061; 81001; 82024; 82533; 82670; 83001; 83002; 83930; 84146; 84270; 84305; 84439; 84443; 84480; 85025

== ENCOUNTER 2022-11-12 09:32 | Outpatient (REF) | payer OTHER, SELFPAY ==
--- NOTE | ~2022-11-12 | MR_ITS ---
EXAMINATION: MR BRAIN WITHOUT AND WITH CONTRAST CLINICAL INFORMATION: Pituitary protocol. Benign neoplasm of pituitary gland. COMPARISON: Brain MRI 11/25/2021. TECHNIQUE: Multiplanar, multisequence imaging of the brain was performed before and after the intravenous administration of 5 mL of Gadavist. The pituitary gland demonstrates mildly heterogeneous background parenchymal enhancement. No discrete microadenoma/hypoenhancing focus is identified. The gland is normal in size and morphology. The infundibulum demonstrates normal thickness and inserts in the midline. The hypothalamus is unremarkable. The cavernous sinuses enhance symmetrically. The optic apparatus appears normal. There is no acute or chronic infarction, hemorrhage, mass, or extra-axial fluid collection. The ventricles are normal in size without hydrocephalus. The brain parenchyma signal appears normal. No abnormal intracranial enhancement is seen. The major arterial flow voids are preserved at the skull base. Small intraparotid lymph nodes are noted bilaterally. MR/MR head/brain wo/w con IMPRESSION: No definite pituitary lesion identified. No acute intracranial abnormality.
== END 2022-11-12 09:33 | disposition home or self-care (01) ==
LOC: HO.MRI 09:32
PROVIDERS: PCP Nurse Practitioner Family; Visit Provider Internal Medicine
DX: D35.2 Benign neoplasm of pituitary gland (principal)
CPT/HCPCS: 70553; A9585

== ENCOUNTER → 2022-11-27 08:27 | Outpatient (BNVA) | payer OTHER, SELFPAY | PROVIDERS: PCP Nurse Practitioner Family; Visit Provider Obstetrics & Gynecology | DX: D35.2 Benign neoplasm of pituitary gland (principal) | CPT/HCPCS: 81025; 99202; 99212 ==

== ENCOUNTER → 2022-12-28 09:14 | Outpatient (BNVA) | payer OTHER, SELFPAY | PROVIDERS: PCP Nurse Practitioner Family; Visit Provider Hospitalist | DX: J45.50 Severe persistent asthma, uncomplicated (principal); J30.9 Allergic rhinitis, unspecified; G47.33 Obstructive sleep apnea (adult) (pediatric) | CPT/HCPCS: 99212 ==

== ENCOUNTER 2023-02-15 09:21 | Outpatient (AMB) | payer OTHER, SELFPAY ==
--- NOTE | 2023-02-15 09:22 | A.OFFVIS_ITS ---
Intake Vital Signs 02/15/23 09:23 Height 5 ft Weight 270 lb BMI 52.7 BP 112/70 Intake Visit Reasons: Annual/do not reschedule Bonbon Dipper: Bonbon Dipper Present (Michelle) Allergies cat dander [CATS] Allergy (Unknown, Verified 02/15/23 09:23) RASH, WHEEZING dog dander [DOGS] Allergy (Unknown, Verified 02/15/23 09:23) RASH, WHEEZING montelukast Adverse Reaction (Mild, Verified 02/15/23 09:23) Depression Medication List - Last Reconciled 02/15/23 by Isidra Grande CNM albuterol sulfate 90 mcg/actuation (ProAir HFA) 1 puff inhalation Q6H PRN albuterol sulfate mg inhalation Q6H PRN benzoyl peroxide 2.5% 1 appl topical DAILY betamethasone dipropionate 0.05% 1 appl topical DAILY PRN cholecalciferol (vitamin D3) 50 mcg PO DAILY 30 days desog-e.estradiol/e.estradiol 0.15-0.02 mgx21 /0.01 mg x 5 (Kariva (28)) 1 tab PO DAILY epinephrine (EpiPen 2-Michael) 0.3 mg (0.3 mL) IM Q10M PRN 30 days fluticasone propion-salmeterol 115-21 mcg/actuation (Advair HFA) 2 puffs inhalation Q12H 30 days fluticasone propionate 50 mcg/actuation 1 spray intranasal DAILY hydrocortisone 2.5% topical hydroxyzine HCl 50 mg PO DAILY PRN 30 days levocetirizine 5 mg PO BID levothyroxine 112 mcg PO DAILY 30 days loratadine 10 mg PO DAILY metronidazole 0.75% 1 appl topical BID nebulizers As directed omalizumab (Xolair) 75 mg (0.5 mL) subcut Q2W 12 months tiotropium bromide 2.5 mcg/actuation (Spiriva Respimat) 2 puffs inhalation DAILY 30 days trazodone 150 mg PO BEDTIME PRN tretinoin 0.025% 1 appl topical DAILY 30 days venlafaxine 75 mg PO Q12H 90 days Is last menstrual period known: Yes Last menstrual period: 02/14/23 HPI Annual/do not reschedule HPI Details 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 She has been taking the control pills given to her by Dr. Evans after long discussion about options for treating her prolactin and pituitary issues as well as amenorrhea the PCOS and obesity. She tells me she was on metformin for a while but it gave her headaches so she stopped it and the headaches improved she feels she is doing okay on the pills she still does not get a period all the time but when she gets it it is right at the beginning of a new pill pack. So it is at least coming on some pattern. She is not working or going to school currently she is just trying to survive. She has sees endocrinology and primary care. She was going to be starting on Oz empic and was kind of looking forward to that but then she was told that her doctor was leaving so she is meeting a new adjunct psychology faculty member in March and she does not know how that will go yet she has struggled with weight loss all her life. It is very challenging. Pelvic exams of also been extremely challenging for her as well. Pap smear was done in 2021 and was normal. Previous Pap had been unsatisfactory due to physiologic mucus. Patient's exam had been challenging.. She can not remember if she has been referred to the weight loss management program but she might be interested because nothing is worked for her. [facility] Medical History Anxiety Asthma Asthma Asthma Cervical lymphadenopathy Chronic allergic rhinitis Eczema Generalized headaches Andrews's disease Hypothyroid Hypothyroidism Microprolactinoma Ocular hypertension BUZZ (obstructive sleep apnea) PCOS (polycystic ovarian syndrome) Pituitary microadenoma with hyperprolactinemia Prolactinoma Vitamin D deficiency Surgical History No history of previous surgery Family History Paternal Grandmother Diabetes Father Asthma Mental health disorder Sister Asthma Mental health disorder Mother Mental health disorder Social History (Updated 02/15/23 @ 09:29 by SHIVAM Miller) Housing: House Alcohol intake: never Patient Tobacco Use Status: Never used Tobacco e-Cigarette/Vaping Use: Never Used Second Hand Smoke Exposure: No service: No Current occupational status: unemployed Sexual orientation: Straight/Heterosexual Gender identity: Female Cognitive needs: No Hearing needs: No Vision needs: No Female Reproductive History Menstrual Age of Menarche: 12 Duration of menses: 3-5 days Date of last menstrual period: 02/14/23 control method: pills Total pregnancies: 0 Date of last pap smear: 07/07/21 (neg, 05/25 unsat) Physical Exam Vital Signs: Last Vital Signs BP 112/70 02/15/23 09:23 BMI result Body Mass Index 52.7 Chest Other: Breast exam within normal limits no masses palpable no dimpling nipples do yulia Other: Speculum exam with Chandan's patient does have her menses cervix is very tiny and small. Nontender good tone with Kegel. limited by adipose. Speculum Exam - Vagina: normal appearance of the vagina and other Speculum Exam - Cervix: normal appearance of the cervix and Other cervical findings present (limited views) Bimanual exam- vagina & uterus: other (uterus difficult to assess 2' habitus) Bimanual Exam- Adnexa, other: Other (palpation of adnexae limited 2' habitus) Assessment & Plan Assessment & Plan (1) control counseling: Code(s): Z30.09 - Encounter for other general counseling and advice on contraception (2) Cervical cancer screening: Comment: 07/07/21- pap= neg Code(s): Z12.4 - Encounter for screening for malignant neoplasm of cervix (3) PCOS (polycystic ovarian syndrome): Code(s): E28.2 - Polycystic ovarian syndrome (4) Anxiety: Code(s): F41.9 - Anxiety disorder, unspecified (5) Pituitary microadenoma with hyperprolactinemia: Code(s): D35.2 - Benign neoplasm of pituitary gland; E22.9 - Hyperfunction of pituitary gland, unspecified (6) Microprolactinoma: Code(s): D35.2 - Benign neoplasm of pituitary gland (7) Women's annual routine gynecological examination: Code(s): Z01.419 - Encounter for gynecological examination (general) (routine) without abnormal findings (8) Counseling for control, oral contraceptives: Code(s): Z30.09 - Encounter for other general counseling and advice on contraception (9) Obesity, morbid, BMI 50 or higher: Code(s): E66.01 - Morbid (severe) obesity due to excess calories Plan -----Discussed in this visit the following: healthy balanced diet, regular and consistent exercise, getting recommended health screens, doing the best she can for her particular health concerns, kegel exercises, pap smear screening and followup recommendations, mammography screening and SBE, normal changes in cycles in her life stage--- .Discussed in general terms the challenges of obesity and challenges for her health and efforts she is engaging in to manage this including dietary changes water intake attention to sleep inclusion of a regular exercise have it and dealing with the may need stressors of life that can contribute to obesity in general. Encouraged her to continue in all have her best efforts. Discussed the real challenges for her of her long-term obesity and the interplay of all of the issues with PCOS the pituitary issues and the current management with the control pills as the previous visit with Dr. Evans . She will be seeing a new adjunct psychology faculty member for her in March and I wished her luck with that she does have a therapist that she meets with frequently and she thinks it helps. I did discuss weight management program and she does not think she has been referred because she never got a call I have gave her a brochure that she can call the number herself. Discussed the challenges of weight. Pap smear not indicated today and she did not need testing for STIs as she has not been sexually active since 2020. Coding Level of Care Code Est Pt Prev Care [id number]) Diagnoses control counseling Z30.09 Cervical cancer screening Z12.4 PCOS (polycystic ovarian syndrome) E28.2 Anxiety F41.9 Pituitary microadenoma with hyperprolactinemia D35.2; E22.9 Microprolactinoma D35.2 Women's annual routine gynecological examination Z01.419 Counseling for control, oral contraceptives Z30.09 Obesity, morbid, BMI 50 or higher E66.01
[2023-02-15 09:23] VITALS: BP 112/70; BMI 52.7
== END 2023-02-15 10:24 | disposition home or self-care (01) ==
LOC: HO.HWS 09:21
PROVIDERS: PCP Nurse Practitioner Family; Visit Provider Advanced Practice Midwife
DX: Z01.419 Encounter for gynecological examination (general) (routine) without abnormal findings (principal); Z30.09 Encounter for other general counseling and advice on contraception; Z12.4 Encounter for screening for malignant neoplasm of cervix; E28.2 Polycystic ovarian syndrome; F41.9 Anxiety disorder, unspecified; D35.2 Benign neoplasm of pituitary gland; E22.9 Hyperfunction of pituitary gland, unspecified; E66.01 Morbid (severe) obesity due to excess calories
CPT/HCPCS: 99395

== ENCOUNTER → 2023-02-15 09:21 | Outpatient (BNVA) | payer OTHER, SELFPAY | PROVIDERS: PCP Nurse Practitioner Family; Visit Provider Advanced Practice Midwife ==

== ENCOUNTER 2023-03-18 09:09 | Outpatient (AMB) | payer OTHER, SELFPAY ==
[2023-03-18 09:11] VITALS: BP 112/76; PULSE 99; BMI 52.6
--- NOTE | 2023-03-18 09:11 | A.OFFVIS_ITS ---
Intake Vital Signs 03/18/23 09:11 Height 5 ft Weight 269 lb 2.951 oz BMI 52.6 BP 112/76 Blood Pressure Location Lt brachial Position Sitting Pulse 99 Pulse Source Pulse Oximeter Intake Visit Reasons: F/U Microprolactinoma/Confirmed Intake Note: Patient present for Microprolactinoma follow up visit. Foot Setter Required: No Accompanied by: Father Allergies cat dander [CATS] Allergy (Unknown, Verified 03/18/23 09:19) RASH, WHEEZING dog dander [DOGS] Allergy (Unknown, Verified 03/18/23 09:19) RASH, WHEEZING montelukast Adverse Reaction (Mild, Verified 03/18/23 09:19) Depression Medication List - Last Reconciled 03/18/23 by Kj Velasquez MD albuterol sulfate 90 mcg/actuation (ProAir HFA) 1 puff inhalation Q6H PRN albuterol sulfate mg inhalation Q6H PRN benzoyl peroxide 2.5% 1 appl topical DAILY betamethasone dipropionate 0.05% 1 appl topical DAILY PRN cholecalciferol (vitamin D3) 50 mcg PO DAILY 30 days desog-e.estradiol/e.estradiol 0.15-0.02 mgx21 /0.01 mg x 5 (Kariva (28)) 1 tab PO DAILY epinephrine (EpiPen 2-Michael) 0.3 mg (0.3 mL) IM Q10M PRN 30 days fluticasone propion-salmeterol 115-21 mcg/actuation (Advair HFA) 2 puffs inhalation Q12H 30 days fluticasone propionate 50 mcg/actuation 1 spray intranasal DAILY hydrocortisone 2.5% topical hydroxyzine HCl 50 mg PO DAILY PRN 30 days levocetirizine 5 mg PO BID levothyroxine 112 mcg PO DAILY 30 days loratadine 10 mg PO DAILY metronidazole 0.75% 1 appl topical BID nebulizers As directed omalizumab (Xolair) 75 mg (0.5 mL) subcut Q2W 12 months tiotropium bromide 2.5 mcg/actuation (Spiriva Respimat) 2 puffs inhalation DAILY 30 days trazodone 150 mg PO BEDTIME PRN tretinoin 0.025% 1 appl topical DAILY 30 days venlafaxine 75 mg PO Q12H 90 days HPI HPI Comments History of Present Illness Details 22 YO Female with no significant PMHx who is seen in F/U for a microprolactinoma and hypothyroidism. Patient last saw Dr. Montejo on 10/12/2022 At her initial visit we checked all labs and ruled her out for NCCAH, Belfry's, adrenal hyperandrogenism. All labs were WNL, but her prolactin was mildly elevated. We did check pituitary MRI which was nondiagnostic given heterogenous background enhancement of the pituitary. We then repeated her Pi tuitary MRI 02/22/2020 which revealed a 5 mm pituitary microadenoma. Prolactin level was repeated and was 80. This Pituitary MRI was again repeated 09/10/2020, and again 11/25/2021 and was unchanged. She was started on Metformin 500 mg PO BID, and was also referred to HOSPITALITY MANAGER. She was started on once daily OCP by Kindergarten Teacher, and has resumed normal monthly menses. She was on a low androgenic profile OCP. Nl menses on BCP She then stopped the metformin for unknown reasons, but continues on her OCP. Since that time she has not had any menses at all, currently amenorrheic. She was having trouble with cystic acne, and this has also improved. Mom had similar issues with hirsutism. Has TPO positivity, and TSH was checked by PCP 05/30/19 and was 4.66. She was started on Levothyroxine 25 mg PO daily , and dose was titrated upward to Levothyroxine 112 mcg PO daily. She takes this in the morning with all the rest of her medications. Labs reveal elevated TT3, which is suspected due to increased TBG levels. . She is currently on levothyroxine 112 mcg She did have formal visual field testing which revealed elevated IOP and some visual field deficits. This was thought to be off premise service representative of glaucoma. She does follow with Ophtho. Pituitary MRI: 11/25/2021 FINDINGS: Redemonstrated is mildly heterogeneous enhancement of the pituitary gland with overall stable size of the gland without a discrete focal lesion within the limitations of the study (motion artifact). Cavernous sinuses enhance normally. The infundibulum enhances normally and appears midline without significant thickening. Normal signal voids in the cavernous carotids. No suprasellar or juxtasellar mass lesions are identified. No focal reduced diffusion is seen to suggest acute or subacute cerebral ischemia. The brain is normal in morphology and signal intensity. No intracranial mass lesions, abnormal enhancement, space-occupying process or mass effect are identified throughout the remainder of the brain. There are no extra-axial fluid collections. The ventricular system and subarachnoid spaces are within normal limits stable in appearance without hydrocephalus. Normal signal voids are seen in the visualized major intracranial vessels. There is mucosal inflammatory change in the ethmoid complex and maxillary sinuses which have progressed from the previous exam. Redemonstrated are prominent pharyngeal tonsils bilaterally. Bilateral retropharyngeal lymph nodes are more prominent in size on the current study compared to the previous exam but still not pathologically enlarged for this location. Multiple small intraparotid lymph nodes are noted bilaterally stable in appearance. Redemonstrated are multiple bilateral IJ chain lymph nodes, some of which are quite prominent in size with submandibular lymph nodes bilaterally. Some of these nodes are enlarged. MR/MR head/brain wo/w con IMPRESSION: 1. Essentially no significant interval c hange in heterogeneity of enhancement of the pituitary gland, difficult to discern a discrete lesion within the limitations of the study as described above. 2. Upper cervical lymphadenopathy and pr ominent pharyngeal tonsils again noted with some progression of upper cervical lymphadenopathy now with enlarging retropharyngeal lymph nodes since the previous study. Correlate with any history for recent infectious or inflammatory disease. 3. Development of bilateral maxillary si nus mucosal thickening and progression of ethmoid sinus mucosal thickening. US Head and Neck 09/27/2020: FINDINGS: There are bilateral cervical lymph nodes. These are normal in size and demonstrate normal ultrasound morphology and flow. There are 4 lymph nodes seen in the right neck and 3 lymph nodes seen in the left neck. There is a single lymph node seen in the mid line neck inferior to the thyroid gland. Labs: Laboratory Tests 11/17/21 01/19/22 01/19/22 08:22 07:44 07:44 TSH Free T4 Free T4 (Dialysis) 1.5 Total T3 Free Estradiol 0.44 Total Estradiol 36 FSH 5.8 Luteinizing Hormon e 10.6 Prolactin Undilute d 39.2 H Somatomedin-C 61 L Random Cortisol ACTH 27 01/19/22 01/24/22 01/24/22 07:44 07:57 07:57 TSH 6.98 H Free T4 1.19 Free T4 (Dialysis) Total T3 195 H Free Estradiol Total Estradiol FSH Luteinizing Hormon e Prolactin Undilute d Somatomedin-C Random Cortisol 16.0 ACTH PFSH Medical History (Updated 03/18/23 @ 09:45 by Kj Velasquez MD) Obesity Chronic allergic rhinitis BUZZ (obstructive sleep apnea) Asthma Asthma Hypothyroidism Ocular hypertension Prolactinoma Cervical lymphadenopathy Vitamin D deficiency Andrews's disease Microprolactinoma Generalized headaches Anxiety Eczema PCOS (polycystic ovarian syndrome) Pituitary microadenoma with hyperprolactinemia Hypothyroid Asthma Surgical History No history of previous surgery Family History Paternal Grandmother Diabetes Father Asthma Mental health disorder Sister Asthma Mental health disorder Mother Mental health disorder Social History (Updated 02/15/23 @ 09:29 by SHIVAM Miller) Housing: House Alcohol intake: never Patient Tobacco Use Status: Never used Tobacco e-Cigarette/Vaping Use: Never Used Second Hand Smoke Exposure: No service: No Current occupational status: unemployed Sexual orientation: Straight/Heterosexual Gender identity: Female Cognitive needs: No Hearing needs: No Vision needs: No Female Reproductive History Menstrual Age of Menarche: 12 Physical Exam Vital Signs: Last Vital Signs Pulse 99 03/18/23 09:11 BP 112/76 03/18/23 09:11 BMI result Body Mass Index 52.6 Const Other: The absence of visual field defects by confrontation. Thyroid gland is normal size weighs about 15 g . There are no thyroid nodules palpated. There is no acromegalic features Assessment & Plan Assessment & Plan (1) Microprolactinoma: Code(s): D35.2 - Benign neoplasm of pituitary gland Plan: Currently on a low androgenic control pill . Recent MRI showed the absence of any pituitary adenoma . Plan is to have the patient return to her primary care provider. There is no need to continue to check prolactin levels or subsequent MRI the pituitary. Patient should continue with control pill. 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 Plan is to continue the current management. At this point, patient returned back to the care of her primary care provider and return back to endocrinology is necessary (3) Obesity: Code(s): E66.9 - Obesity, unspecified Plan: She does have a history of PCOS but has not met with a emergency services director. I did make a referral to a emergency services director. She inquired about use of Ozempic. However, her insurance does not cover Ozempic with absence of diabetic history or weight loss medications. Her primary care provider could attempt to get Wegovy approved by her insurance company in the future if dietary attempts were not successful Orders: Referrals Nutrition/Dietitian Referral E66.9 - Obesity, unspecified Coding Level of Care Code Est Pt Level 3 (58512) Diagnoses Microprolactinoma D35.2 Andrews's disease E06.3 Obesity E66.9
== END 2023-03-18 09:47 | disposition home or self-care (01) ==
PROVIDERS: PCP Nurse Practitioner Family; Referring Provider Nurse Practitioner Family; Visit Provider Internal Medicine Endocrinology, Diabetes & Metabolism
DX: D35.2 Benign neoplasm of pituitary gland (principal); E06.3 Autoimmune thyroiditis; E66.9 Obesity, unspecified
CPT/HCPCS: 99213

== ENCOUNTER → 2023-03-18 09:09 | Outpatient (BNVA) | payer OTHER, SELFPAY | PROVIDERS: Visit Provider Internal Medicine Endocrinology, Diabetes & Metabolism | DX: D35.2 Benign neoplasm of pituitary gland (principal); E06.3 Autoimmune thyroiditis; E66.9 Obesity, unspecified; Z68.43 Body mass index [BMI] 50.0-59.9, adult; Z79.899 Other long term (current) drug therapy | CPT/HCPCS: 99212 ==

== ENCOUNTER 2023-04-09 08:57 | Outpatient (AMB) | payer OTHER, SELFPAY ==
--- NOTE | 2023-04-09 10:20 | MHC.OFFWIV ---
Intake Vital Signs 04/09/23 10:22 Weight 270 lb BP 120/90 H Blood Pressure Location Rt brachial Position Sitting Pulse 90 Pulse Source Pulse Oximeter Pulse Oximetry (%) 99 Oxygen Delivery Method Room Air Intake Visit Reasons: EP Tonsils/ Sore Throat (masked) Intake Note: Patient here for sore throat/tonsils which has been bothersome since yesterday but she has a hx of tonsil issues for years. Patient Tobacco Use Status: Never used Tobacco Allergies cat dander [CATS] Allergy (Unknown, Verified 04/09/23 10:23) RASH, WHEEZING dog dander [DOGS] Allergy (Unknown, Verified 04/09/23 10:23) RASH, WHEEZING montelukast Adverse Reaction (Mild, Verified 04/09/23 10:23) Depression Do you need a note to return to daycare/school/sports/work: No HPI HPI Comments History of Present Illness Details This is a 22-year-old female who presents to the office today for sick visit. Patient complaining of sore throat and tonsillar swelling x3 days. Patient denies any fever/chills, shortness of breath, or trouble swallowing. She does report odynophagia but denies dysphagia. She states she has a history of tonsillitis and she follows with an ENT but she was unable to make an appointment. [facility] Medical History (Updated 03/18/23 @ 09:45 by Kj Velasquez MD) Obesity Chronic allergic rhinitis BUZZ (obstructive sleep apnea) Asthma Asthma Hypothyroidism Ocular hypertension Prolactinoma Cervical lymphadenopathy Vitamin D deficiency Andrews's disease Microprolactinoma Generalized headaches Anxiety Eczema PCOS (polycystic ovarian syndrome) Pituitary microadenoma with hyperprolactinemia Hypothyroid Asthma Surgical History No history of previous surgery Family History Paternal Grandmother Diabetes Father Asthma Mental health disorder Sister Asthma Mental health disorder Mother Mental health disorder Social History Housing: House Alcohol intake: never Patient Tobacco Use Status: Never used Tobacco e-Cigarette/Vaping Use: Never Used Second Hand Smoke Exposure: No service: No Current occupational status: unemployed Sexual orientation: Straight/Heterosexual Gender identity: Female Cognitive needs: No Hearing needs: No Vision needs: No Female Reproductive History Menstrual Age of Menarche: 12 Review of Systems Const All systems reviewed & are unremarkable except as noted in HPI and below Reports no additional complaints Eyes Reports no additional complaints ENT Reports no additional complaints Card Reports no additional complaints Resp Reports no additional complaints GI Reports no additional complaints Reports no additional complaints Musc Reports no additional complaints Skin/Breast Reports system reviewed and no additional complaints, except as documented Neuro Reports no additional complaints Psych Reports no additional complaints Endo Reports no additional complaints Jose David/Lymph Reports no additional complaints Aller/Immun Reports no additional complaints Physical Exam Vital Signs: Last Vital Signs Pulse 90 04/09/23 10:22 BP 120/90 H 04/09/23 10:22 Pulse Ox 99 04/09/23 10:22 Oxygen Delivery Method Room Air 04/09/23 10:22 Const Other: Vital signs reviewed. Constitutional: Non-toxic appearing. No acute distress. Well-developed and well-nourished. HEENT: Normocephalic and atraumatic. Tympanic membranes without erythema, edema, or bulging bilaterally. External auditory canals without erythema or edema bilaterally. Moist mucous membranes. Bilateral tonsillar hypertrophy and erythema. Posterior pharyngeal erythema and edema. No unilateral peritonsillar mass or cellulitis noted. Skin: Warm and dry. No rashes or lesions noted. Neck: Full and painless range of motion. No cervical lymphadenopathy. Cardio: Regular rate and rhythm. No murmurs, gallops, or rubs. No lower extremity edema. No JVD. Pulmonary: No respiratory distress. No accessory muscle usage. Clear to auscultation bilaterally without wheezing, crackles, or rhonchi. No stridor or tripoding. Gastrointestinal: Soft, nontender, and nondistended in all 4 quadrants. Normoactive bowel sounds in all 4 quadrants. Genitourinary: No CVA tenderness. Musculoskeletal: Normal range of motion in joints throughout the body. No deformity or other signs of injury. Neuro: Alert and oriented x4. Cranial nerves 2-12 grossly intact. No focal deficits appreciated. Psych: Normal mood and affect. Results AMB Rapid Strep AMB Rapid Strep Negative Last Edit by ANNAMARIE Garcia on 04/09/23 10:40 Assessment & Plan Assessment & Plan (1) Tonsillitis: Code(s): J03.90 - Acute tonsillitis, unspecified Plan This is a 22-year-old female presenting to the office complaining sore throat and tonsillar swelling. On physical examination, patient has bilateral tonsillar erythema and edema in posterior pharyngeal erythema and edema. there is no stridor or tripoding and patient is protecting her airway. History and physical most consistent with tonsillitis / pharyngitis. No evidence of peritonsillar abscess or epiglottitis. Patient's vital signs are stable, her physical exam is otherwise benign, and she is overall nontoxic appearing. Patient was sent home on p.o. amoxicillin 500 mg twice daily times 10 days as well as PO ibuprofen 800 mg 3 times daily for inflammation. Patient was instructed to follow-up with the emergency room if she were to develop stridor, shortness of breath, difficulty swallowing etc. Patient verbalizes her understanding and she is in agreement with the plan. Orders: Orders AMB Rapid Strep Screen Today Z13.9 - Encounter for screening, unspecified Medications: New ibuprofen 800 mg PO Q8H 21 tabs 0RF amoxicillin 500 mg PO BID 20 caps 0RF Coding Level of Care Code Est Pt Level 3 (56356) Diagnoses Tonsillitis J03.90
[2023-04-09 10:22] VITALS: BP 120/90; PULSE 90; O2SAT 99
== END 2023-04-09 11:20 | disposition home or self-care (01) ==
PROVIDERS: PCP Nurse Practitioner Family; Visit Provider Physician Assistant Medical
DX: J03.90 Acute tonsillitis, unspecified (principal)
CPT/HCPCS: 87880; 99213

== ENCOUNTER 2023-04-27 10:17 | Outpatient (AMB) | payer OTHER, SELFPAY ==
--- NOTE | 2023-04-27 10:25 | A.OFFVIS_ITS ---
Intake VS Expanded 04/27/23 10:26 05/04/23 20:47 Height 5 ft 5 ft Weight 268 lb 1.314 oz 268 lb BMI 52.4 52.3 Intake Visit Reasons: Obesity/CONFIRMED Allergies cat dander [CATS] Allergy (Unknown, Verified 04/09/23 10:23) RASH, WHEEZING dog dander [DOGS] Allergy (Unknown, Verified 04/09/23 10:23) RASH, WHEEZING montelukast Adverse Reaction (Mild, Verified 04/09/23 10:23) Depression HPI Nutrition Presentation Details Pt presents for MNT for Obesity. Pt was referred by Dr. Velasquez, site damage prevention technician Food frequency fruits: 0-1/d fried foods: daily starches > 20 serving/d vegetables: 1-2 serving/d dairy: mostly cheese protein : 7-9 oz/d beverages: water /juices GI: Reports having episodes of vomiting after meals, unprovoked, reports this is associated with anxiety. Pt reports following up with mental health care provider and recently expressing this symptom to the therapist Meals may consist of B: 11 -12 am scrambled or boiled eggs/cheese, sometimes sometimes bread or crackers, water Dinner 3-4 pm starch/protein/veg, water /juice 7-9pm : fast food food frequency fruit: 0-1/d vegetables 2-3 serving/3-4 x/wk dairy:mainly cheese protein : 12-15 serving starches > 20 serving/d beverages : juice/water/sodas > 20 oz/d ETOH/smoking denies Vitamins not taking physically active:not participating in PA JWJ-Nrrpvoc-Dl.or Equation Height 5 ft Weight 268 lb Resting Metabolic Rate 1892.75 Calculated Activity Level Sedentary Calories Needed to Maintain Weight 2271.30 Diagnosis Nutrition problem #1 excessive energy intake As related to (etiology) #1 diagnosis As evidenced by (sign/symptom) #1 knowledge deficit of diet Monitoring/Goals Nutrition problem monitoring total energy intake, level of knowledge/skill, total PRO intake, weight and oral fluids Nutrition goal/outcome wt loss 5lbs in 2 months Outcome progress verbalized understanding Learning/Education Readiness to learn good Stages of change contemplation Educational materials provided Yes (meal planning, balancing meals following healthy plate method) Most Recent Diabetes Results: Cholesterol 144 mg/dL 11/02/22 HDL Cholesterol 46 mg/dL 11/02/22 Triglycerides 64 mg/dL 11/02/22 Creatinine 0.66 mg/dL (0.5-1.4) 11/02/22 Blood Urea Nitrogen 9 mg/dL (9-16) 11/02/22 Sodium 139 mmol/L (135-145) 11/02/22 Potassium 3.8 mmol/L (3.3-5.1) 11/02/22 Chloride 106 mmol/L (96-108) 11/02/22 Carbon Dioxide 24 mmol/L (22-29) 11/02/22 Calcium 9.2 mg/dL (8.4-10.2) 11/02/22 AST 18 U/L (5-31) 11/02/22 ALT 25 U/L (0-31) 11/02/22 Total Protein 7.3 g/dL (6.5-8.0) 11/02/22 Albumin 4.0 g/dL (3.5-5.0) 11/02/22 REPLACED BY [facility] Medical History (Updated 05/04/23 @ 21:05 by Georgie Long, RD, LDN) Obesity Chronic allergic rhinitis BUZZ (obstructive sleep apnea) Asthma Asthma Hypothyroidism Ocular hypertension Prolactinoma Cervical lymphadenopathy Vitamin D deficiency Andrews's disease Microprolactinoma Generalized headaches Anxiety Eczema PCOS (polycystic ovarian syndrome) Pituitary microadenoma with hyperprolactinemia Hypothyroid Asthma Surgical History No history of previous surgery Family History Paternal Grandmother Diabetes Father Asthma Mental health disorder Sister Asthma Mental health disorder Mother Mental health disorder Social History Housing: House Alcohol intake: never Patient Tobacco Use Status: Never used Tobacco e-Cigarette/Vaping Use: Never Used Second Hand Smoke Exposure: No service: No Current occupational status: unemployed Sexual orientation: Straight/Heterosexual Gender identity: Female Cognitive needs: No Hearing needs: No Vision needs: No Female Reproductive History Menstrual Age of Menarche: 12 Assessment & Plan Assessment & Plan (1) Morbid obesity with BMI of 50.0-59.9, adult: Code(s): E66.01 - Morbid (severe) obesity due to excess calories; Z68.43 - Body mass index [BMI] 50.0-59.9, adult Plan: wt: 122 kg Est kcal needs as per MSJ: 2300 (40% carb, 30% protein/fat) Est fluid needs as per 25-30 ml/d: 3050- 3660 Est prot per day as per 1 g/kg bw: 122 Recommend fiber intake : 8-10 g per day and gradually increase to 25-28 g per day for women and 35-38 g for men or as tolerated Recommend sodium intake per day : less than 2000 mg Educated patient on: ( R = reviewed V = verbalizes understanding N/R = needs review N/A = not applicable * practice mindful eating strategies, eating slowly, savoring food: R, * Food sources of carbohydrate, adequate serving sizes and its role in various health conditions: R * Differences between complex carbohydrates a simple carbohydrates, role of fiber in diet: R * Differences between types of fats and role in diet (mono on saturated fat fatty acids, saturated fatty acids, trans fats): R * Food sources of sodium in salt and healthy modifications for heart health in kidney health: NR * Vitamins and minerals: R * Healthy plate method concept: R * Physical activity: Benefits a precaution: R * Hydration : R Patient Instructions: Work on practicing mindful eating , reducing portion sizes following healthy plate method at dinner time - see meal ideas keep a food record with food, portions, snacks, feelings , record beverages, candies/pastries Coding Level of Care Code Nutr Indiv Intake (90280) Diagnoses Morbid obesity with BMI of 50.0-59.9, adult E66.01; Z68.43 Time Spent (min) 30
[2023-04-27 10:26] VITALS: BMI 52.4
[2023-05-04 20:47] VITALS: BMI 52.3
== END 2023-04-27 11:07 | disposition home or self-care (01) ==
PROVIDERS: PCP Nurse Practitioner Family; Visit Provider Dietitian, Registered
DX: E66.01 Morbid (severe) obesity due to excess calories (principal); Z68.43 Body mass index [BMI] 50.0-59.9, adult

== ENCOUNTER → 2023-04-27 10:17 | Outpatient (BNVA) | payer OTHER, SELFPAY | PROVIDERS: PCP Nurse Practitioner Family; Visit Provider Dietitian, Registered | DX: E66.01 Morbid (severe) obesity due to excess calories (principal); Z68.43 Body mass index [BMI] 50.0-59.9, adult; Z71.3 Dietary counseling and surveillance | CPT/HCPCS: 97802 ==

== ENCOUNTER 2023-05-18 09:20 | Outpatient (REF) | payer OTHER, SELFPAY ==
[2023-05-20 05:59] LABS: Prolactin 29.3 ng/mL
== END 2023-05-18 09:21 | disposition home or self-care (01) ==
LOC: HO.LAB 09:20
PROVIDERS: PCP Nurse Practitioner Family; Visit Provider Psychiatry & Neurology Neurology
DX: D35.2 Benign neoplasm of pituitary gland (principal)
CPT/HCPCS: 36415; 84146

== ENCOUNTER 2023-06-29 07:54 | Outpatient (AMB) | payer OTHER, SELFPAY ==
--- NOTE | 2023-06-29 07:57 | MHC.PC.OV ---
Vital Signs 06/29/23 07:59 Height 5 ft Weight 265 lb BMI 51.7 BP 124/76 Blood Pressure Location Lt brachial Position Sitting Pulse 86 Pulse Source Pulse Oximeter Pulse Oximetry (%) 99 Oxygen Delivery Method Room Air Intake Visit Reasons: 6m PCOS follow up Intake Note: Patient here to follow up on pcos and would like to talk about pelvic /back pain,thyroid, dizziness and potential hypermobility. Allergies cat dander [CATS] Allergy (Unknown, Verified 06/29/23 08:00) RASH, WHEEZING dog dander [DOGS] Allergy (Unknown, Verified 06/29/23 08:00) RASH, WHEEZING montelukast Adverse Reaction (Mild, Verified 06/29/23 08:00) Depression Medication List - Last Reconciled 06/29/23 by SULAIMAN CarlP- albuterol sulfate 90 mcg/actuation (ProAir HFA) 1 puff inhalation Q6H PRN albuterol sulfate mg inhalation Q6H PRN benzoyl peroxide 2.5% 1 appl topical DAILY betamethasone dipropionate 0.05% 1 appl topical DAILY PRN cholecalciferol (vitamin D3) 50 mcg PO DAILY desog-e.estradiol/e.estradiol 0.15-0.02 mgx21 /0.01 mg x 5 (Kariva (28)) 1 tab PO DAILY divalproex ER 250 mg PO DAILY epinephrine (EpiPen 2-Michael) 0.3 mg (0.3 mL) IM Q10M PRN 30 days fluticasone propion-salmeterol 115-21 mcg/actuation (Advair HFA) 2 puffs inhalation Q12H 30 days fluticasone propionate 50 mcg/actuation 1 spray intranasal DAILY hydrocortisone 2.5% topical ibuprofen 800 mg PO Q8H lamotrigine 25 mg PO DAILY levocetirizine 5 mg PO BID levothyroxine 112 mcg PO DAILY 30 days loratadine 10 mg PO DAILY meclizine 25 mg PO DAILY PRN 20 days metronidazole 0.75% 1 appl topical BID nebulizers As directed omalizumab (Xolair) 75 mg (0.5 mL) subcut Q2W 12 months prazosin 1 mg PO BEDTIME tiotropium bromide 2.5 mcg/actuation (Spiriva Respimat) 2 puffs inhalation DAILY 30 days trazodone 150 mg PO BEDTIME PRN tretinoin 0.025% 1 appl topical DAILY 30 days venlafaxine 75 mg PO Q12H 90 days Tobacco use date assessed: 10/20/22 Dental Screening Dental Screen Date: 06/29/23 Did you have a dental visit in the last 12 months?: No Did you have a dental problem in the last 6 months where you did not have access to dental care?: No Was dental information given to patient?: Patient has dentist HPI 6m PCOS follow up HPI Details Pt c/o intermittent chest discomfort. She reports sharp pain to her transverse upper chest that does not radiate own her arm. Pt reports that the pain is not reproducible. EKG in office shows new RBBB. Will refer to cardiology. Pt also c/o SI joint pain. Will order XR. Pt reports hypermobility. She has a family hx of Carlitos Danlos syndrome though she has never been diagnosed with it. Will refer to rheumatology to rule this out. Pt has a hx of PCOS, will have her follow up with endo. Reports intermittent gracia sickness. Will send meclizine. [facility] Medical History (Updated 06/29/23 @ 08:48 by Rasta Sun, [facility]) Obesity Chronic allergic rhinitis BUZZ (obstructive sleep apnea) Asthma Asthma Hypothyroidism Ocular hypertension Prolactinoma Cervical lymphadenopathy Vitamin D deficiency Andrews's disease Microprolactinoma Generalized headaches Anxiety Eczema PCOS (polycystic ovarian syndrome) Pituitary microadenoma with hyperprolactinemia Hypothyroid Asthma Surgical History No history of previous surgery Family History Paternal Grandmother Diabetes Father Asthma Mental health disorder Sister Asthma Mental health disorder Mother Mental health disorder Social History Housing: House Alcohol intake: never Patient Tobacco Use Status: Never used Tobacco e-Cigarette/Vaping Use: Never Used Second Hand Smoke Exposure: No service: No Current occupational status: unemployed Sexual orientation: Straight/Heterosexual Gender identity: Female Cognitive needs: No Hearing needs: No Vision needs: No Female Reproductive History Menstrual Age of Menarche: 12 Questionnaire Thrive Questionnaire Date Thrive assessed: 10/20/22 AUDIT C Alcohol Use Questionnaire (AUDIT-C) 1. How often do you have a drink containing alcohol?: Never 3. How often do you have six or more drinks on one occasion?: Never Total Score: 0 Score Reviewed/Action Taken: No LILIANE-7 AMB Questionnaire LILIANE-7 Date LILIANE - 7 assessed: 10/20/22 Source: Developed by Drs. Kj Morrow, Mary Jo Zhao, Christopher Feliciano and colleagues, with an educational heike from [employer].. Review of Systems Const Reports as per HPI Physical exam (Primary Care) Vital Signs: Last Vital Signs Pulse 86 06/29/23 07:59 BP 124/76 06/29/23 07:59 Pulse Ox 99 06/29/23 07:59 Oxygen Delivery Method Room Air 06/29/23 07:59 BMI result Body Mass Index 51.7 Tobacco/Smoking Status: Tobacco use Status Tobacco use date assessed 10/20/22 06/29/23 07:59 Patient Tobacco Use Status Never used Tobacco 06/29/23 07:59 e-Cigarette/Vaping Use Never Used 06/29/23 07:59 Thrive Assessment: Date of Thrive Assessment Date Thrive assessed 10/20/22 06/29/23 07:59 Const General: cooperative Nutritional Appearance: obese morbidly obese Orientation/consciousness: patient oriented x3 Chest Other: no chest pain reproducible with turning torso side to side and palpation Resp Effort & Inspection: normal respiratory effort Auscultation: clear to auscultation bilaterally Cardio Rate: regular rate Rhythm: regular rhythm Heart sounds: S1 normal heart sound present and S2 normal heart sound present Back/Spine/Pelvis Other: tenderness to SI joint region with flexion and extension of BLE Neuro General: patient oriented x3 Psych Appearance: grossly normal Mental Status: mental status grossly normal Speech and movement: Clear speech present Affect: normal affect Attitude: cooperative Thought process: Normal thought process present Thought content: Normal thought content present Insight: Good insight present (Psych) Judgement: Good judgement present (Psych) Assessment and Plan Assessment & Plan (1) Chronic SI joint pain: Code(s): M53.3 - Sacrococcygeal disorders, not elsewhere classified; G89.29 - Other chronic pain Plan: XR ordered (2) Chest discomfort: Code(s): R07.89 - Other chest pain Plan: EKG done in office (3) Obesity: Code(s): E66.9 - Obesity, unspecified Plan: Referred to rheumatology (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 Scribed for MARY Hu- by Charisma Carr medical care manager, on 06/29/2023 at 08:20 EST. Orders: Orders XR sacroiliac joint 1-2V Today G89.29 - Other chronic pain, M53.3 - Sacrococcygeal disorders, not elsewhere classified Lipid Panel Today E03.9 - Hypothyroidism, unspecified, E28.2 - Polycystic ovarian syndrome AMB EKG-In Office Today R07.89 - Other chest pain Complete Blood Count Auto Diff Today E03.9 - Hypothyroidism, unspecified, E28.2 - Polycystic ovarian syndrome Comprehensive Donie. Panel Fast Today E03.9 - Hypothyroidism, unspecified, E28.2 - Polycystic ovarian syndrome TSH reflex Free T4 Today E03.9 - Hypothyroidism, unspecified, E28.2 - Polycystic ovarian syndrome UA CC w/rflx Micro + Cult Today E03.9 - Hypothyroidism, unspecified, E28.2 - Polycystic ovarian syndrome Referrals Rheumatology Referral E66.9 - Obesity, unspecified, Q79.60 - Carlitos-Danlos syndrome, unspecified Cardiology Referral I45.10 - Unspecified right bundle-branch block, R07.89 - Other chest pain Medications: New meclizine 25 mg PO DAILY 20 days PRN 20 tabs 0RF motion sickness Coding Level of Care Code Est Pt Level 3 (63855) Diagnoses Chronic SI joint pain M53.3; G89.29 Chest discomfort R07.89 Obesity E66.9 Carlitos-Danlos disease Q79.60 RBBB I45.10 Hypothyroidism E03.9 PCOS (polycystic ovarian syndrome) E28.2
[2023-06-29 07:59] VITALS: BP 124/76; PULSE 86; O2SAT 99; BMI 51.7
== END 2023-06-29 08:59 | disposition home or self-care (01) ==
PROVIDERS: Visit Provider Nurse Practitioner Family
DX: G89.29 Other chronic pain (principal); M53.3 Sacrococcygeal disorders, not elsewhere classified; Z68.43 Body mass index [BMI] 50.0-59.9, adult; E66.9 Obesity, unspecified; R07.89 Other chest pain; Q79.60 Ehlers-Danlos syndrome, unspecified; I45.10 Unspecified right bundle-branch block; E03.9 Hypothyroidism, unspecified; E28.2 Polycystic ovarian syndrome
CPT/HCPCS: 99213

== ENCOUNTER 2023-07-15 08:28 | Outpatient (AMB) | payer OTHER, SELFPAY ==
--- NOTE | 2023-07-15 08:32 | A.OFFVIS_ITS ---
Intake VS Expanded 07/15/23 08:33 Height 5 ft Weight 267 lb 13.786 oz BMI 52.3 Intake Visit Reasons: obesity/CONFIRMED Allergies cat dander [CATS] Allergy (Unknown, Verified 07/23/23 10:48) RASH, WHEEZING dog dander [DOGS] Allergy (Unknown, Verified 07/23/23 10:48) RASH, WHEEZING montelukast Adverse Reaction (Mild, Verified 07/23/23 10:48) Depression HPI Nutrition Presentation Details Pt presents for MNT f/u for morbid obesity. Pt canc and r/s Dec f/u appt. Pt reports keeping food log sometimes leads to anxiety . Pt reports working with a mental health care provider food frequency fruit: none vegetables :none protein foods 30-40 g /day Pt reports having wheat/milk and peanut allergy/intolerance but has lack of knowledge regarding non wheat/nut food sources /snacks therefore not reudicing or eliminating these from the diet. Fluid : 40 oz of water/day + soda/ oatmilk /juice Pt reports she is allergic to wheat - gets stomach pain, eggs- becomes red in the cheeks and itchy throat milk - stomach pain Most Recent Diabetes Results: No Data to Display [facility] Medical History (Updated 06/29/23 @ 08:48 by Rasta Sun, [facility]) Obesity Chronic allergic rhinitis BUZZ (obstructive sleep apnea) Asthma Asthma Hypothyroidism Ocular hypertension Prolactinoma Cervical lymphadenopathy Vitamin D deficiency Andrews's disease Microprolactinoma Generalized headaches Anxiety Eczema PCOS (polycystic ovarian syndrome) Pituitary microadenoma with hyperprolactinemia Hypothyroid Asthma Surgical History No history of previous surgery Family History Paternal Grandmother Diabetes Father Asthma Mental health disorder Sister Asthma Mental health disorder Mother Mental health disorder Social History Housing: House Alcohol intake: never Patient Tobacco Use Status: Never used Tobacco e-Cigarette/Vaping Use: Never Used Second Hand Smoke Exposure: No service: No Current occupational status: unemployed Sexual orientation: Straight/Heterosexual Gender identity: Female Cognitive needs: No Hearing needs: No Vision needs: No Female Reproductive History Menstrual Age of Menarche: 12 Assessment & Plan Assessment & Plan (1) Morbid obesity with BMI of 50.0-59.9, adult: Code(s): E66.01 - Morbid (severe) obesity due to excess calories; Z68.43 - Body mass index [BMI] 50.0-59.9, adult Plan: Pt has Increased intake of empty calorie foods, large portion sizes and lack of understanding of wheat/nut/dairy sources of foods which she reports having sensitivity to. wt: 122 kg (121 kg -07/2023) Est kcal needs as per MSJ: 2300 (40% carb, 30% protein/fat) Est fluid needs as per 25-30 ml/d: 3050- 3660 Est prot per day as per 1 g/kg bw: 122 Recommend fiber intake : 8-10 g per day and gradually increase to 25-28 g per day for women and 35-38 g for men or as tolerated Recommend sodium intake per day : less than 2000 mg Educated patient on: ( R = reviewed V = verbalizes understanding N/R = needs review N/A = not applicable * practice mindful eating strategies, eating slowly, savoring food: R, * Food sources of carbohydrate, adequate serving sizes and its role in various health conditions: R * Differences between complex carbohydrates a simple carbohydrates, role of fiber in diet: R * Differences between types of fats and role in diet (mono on saturated fat fatty acids, saturated fatty acids, trans fats): R * Food sources of sodium in salt and healthy modifications for heart health in kidney health: NR * Vitamins and minerals: R * Healthy plate method concept: R * Physical activity: Benefits a precaution: R - contemplating walking routine * Hydration : R Patient Instructions: Work on choosing foods without wheat - see list of foods/meal options When eating out specify your food intolerances (wheat/nut/dairy/eggs) see list of food options Continue practicing mindful eating , increase water intake to 64 oz per day Coding Level of Care Code Nutr Indiv Subseq (83429) Diagnoses Morbid obesity with BMI of 50.0-59.9, adult E66.01; Z68.43 Time Spent (min) 20
[2023-07-15 08:33] VITALS: BMI 52.3
== END 2023-07-15 09:20 | disposition home or self-care (01) ==
PROVIDERS: PCP Nurse Practitioner Family; Visit Provider Dietitian, Registered
DX: E66.01 Morbid (severe) obesity due to excess calories (principal); Z68.43 Body mass index [BMI] 50.0-59.9, adult

== ENCOUNTER → 2023-07-15 08:28 | Outpatient (BNVA) | payer OTHER, SELFPAY | PROVIDERS: PCP Nurse Practitioner Family; Visit Provider Dietitian, Registered | DX: E66.01 Morbid (severe) obesity due to excess calories (principal); Z68.43 Body mass index [BMI] 50.0-59.9, adult | CPT/HCPCS: 97803 ==

== ENCOUNTER 2023-07-23 10:36 | Outpatient (AMB) | payer OTHER, SELFPAY ==
[2023-07-23 10:47] VITALS: PULSE 89; O2SAT 98; BMI 51.7
--- NOTE | 2023-07-23 10:47 | MHC.OFFVIS ---
Intake Vital Signs 07/23/23 10:47 Height 5 ft Weight 265 lb BMI 51.7 Pulse 89 Pulse Source Pulse Oximeter Pulse Oximetry (%) 98 Oxygen Delivery Method Room Air Intake Visit Reasons: astma Spray Machine Tender Required: No Allergies cat dander [CATS] Allergy (Unknown, Verified 07/23/23 10:48) RASH, WHEEZING dog dander [DOGS] Allergy (Unknown, Verified 07/23/23 10:48) RASH, WHEEZING montelukast Adverse Reaction (Mild, Verified 07/23/23 10:48) Depression HPI HPI Comments History of Present Illness Details The patient is a 22 year woman with known lifelong history of asthma. She has been followed closely by Allergy and immunology. She has been on allergy shots and subsequently was taken off because her asthma to active and she was placed on Xolair. She does and give herself her own Xolair every 4 weeks. She is not sure about the dose. She typically does 2 injections. She also takes Advair and Spiriva. These medications have been helpful. She still needs her rescue inhaler either daily or every other day which is too much. She also gets short of breath with activity. The patient also complains of daytime drowsiness. She does have headaches in the morning. There was documented snoring. The patient does have an elevated [place] score of 14/24. She was supposed to have a sleep study but never followed through. At this point will go ahead and request a sleep study for her. 08/31/2022 the patient is here for a pulmonary follow-up visit. She continues to use her inhalers as prescribed. She has had to use her rescue inhaler more often. She continues with Xolair every 4 weeks. The patient did have blood work done her IgE levels noted to 429 and does have significant allergies noted. She is also wondering about food allergies. She is feeling like some of the foods that she is eating have been activating her asthma as well. Therefore she can have additional allergy testing for the foods that may be precipitating her symptoms as well meantime will go ahead and adjust her Xolair from every 4 weeks to every 2 weeks. Should need a maximum dose based on her weight and also the level of her IgE. She is going to continue with the Advair and the Spiriva. She may be a good candidate for triple therapy. When she is running out of medications she can always call we can send her Trelegy to the pharmacy. She did have a sleep study. No evidence of any significant sleep apnea this is reassuring. She knows not to sleep some worse on the right side where she had more hypopneas episodes. In addition to this the patient also had PFTs done demonstrating normal lung capacity which is reassuring. She did have an elevated DLCO above normal therefore exposure to exogenous her monoxide needs to be monitored. She does state that she does have some secondhand smoke exposure. 07/23/2023 the patient is here for a pulmonary follow-up visit. The patient overall has been doing fair. She has had worsening respiratory symptoms the last few months. Although is phenotype season for viruses in the cold air. She is has required prednisone. The patient has continued on the Xolair. The Xolair has been partially helpful. Seems to help her the eczema in her allergies but tends to not help the asthma as much. The patient has had blood work in the past demonstrating some degree of eosinophilia along with the elevated IgE. Therefore, I do believe that she will do better on Dupixent. She has already been on Xolair couple years with only partial response. In addition to that we did try putting her on Trelegy but it would not cover. Therefore, will go ahead and optimize respiratory therapy by increasing her Advair to the maximum dose and she can continue the Spiriva. I did give her information about Dupixent. She will let us know if she wants to start it. She will have to do blood work. Otherwise will talk about her when she returns in the springtime. [facility] Medical History (Updated 06/29/23 @ 08:48 by Rasta Sun, [facility]) Obesity Chronic allergic rhinitis BUZZ (obstructive sleep apnea) Asthma Asthma Hypothyroidism Ocular hypertension Prolactinoma Cervical lymphadenopathy Vitamin D deficiency Andrews's disease Microprolactinoma Generalized headaches Anxiety Eczema PCOS (polycystic ovarian syndrome) Pituitary microadenoma with hyperprolactinemia Hypothyroid Asthma Surgical History No history of previous surgery Family History Paternal Grandmother Diabetes Father Asthma Mental health disorder Sister Asthma Mental health disorder Mother Mental health disorder Social History Housing: House Alcohol intake: never Patient Tobacco Use Status: Never used Tobacco e-Cigarette/Vaping Use: Never Used Second Hand Smoke Exposure: No service: No Current occupational status: unemployed Sexual orientation: Straight/Heterosexual Gender identity: Female Cognitive needs: No Hearing needs: No Vision needs: No Female Reproductive History Menstrual Age of Menarche: 12 Review of Systems Const Reports daytime sleepiness, Denies headache(s) and Reports snoring Eyes Denies change in vision ENT Denies change in voice, Denies headache(s), Reports nasal congestion and Reports nasal discharge Card Denies chest pain Resp Reports cough, Reports snoring and Reports wheezing GI Reports no additional complaints Musc Reports no additional complaints Skin/Breast Denies rash Neuro Reports no additional complaints and Denies headache(s) Endo Denies flushing Jose David/Lymph Denies easy bruising Aller/Immun Reports wheezing Physical Exam Vital Signs: Last Vital Signs Pulse 89 07/23/23 10:47 Pulse Ox 98 07/23/23 10:47 Oxygen Delivery Method Room Air 07/23/23 10:47 BMI result Body Mass Index 51.7 Const General: comfortable HEENT Head: Yes normocephalic Eyes General: appearance normal, both eyes and all related structures Neck Neck: Yes supple Chest Chest palpation & inspection: normal inspection of the chest Resp Effort & Inspection: normal respiratory effort and prolonged expiratory phase Auscultation: no wheezes and diminished lung sounds Cardio Rate: regular rate Rhythm: regular rhythm Heart sounds: S1 normal heart sound present and S2 normal heart sound present GI Auscultation: normal bowel sounds Skin General skin exam: no rashes or lesions noted Extrem General: Yes no clubbing, cyanosis or edema Assessment & Plan Assessment & Plan (1) Asthma: Code(s): J45.909 - Unspecified asthma, uncomplicated Qualifiers: Asthma complication type: uncomplicated Asthma persistence: persistent Asthma severity: severe Qualified Code(s): J45.50 - Severe persistent asthma, uncomplicated (2) Chronic allergic rhinitis: Code(s): J30.9 - Allergic rhinitis, unspecified (3) BUZZ (obstructive sleep apnea): Comment: No BUZZ on home PSG Code(s): G47.33 - Obstructive sleep apnea (adult) (pediatric) Plan increase Advair 115->130/21 continue Spiriva JENIFFER as needed anti histamine therapy Bloodwork continue Xolair 375mg Q2 weeks. Consider Dupixent. Info provided to the patient. She will call us if she wants to switch F/U 4-6 months Orders: Orders Complete Blood Count Auto Diff Today J45.909 - Unspecified asthma, uncomplicated Basic Metabolic Panel Today J45.909 - Unspecified asthma, uncomplicated Immunoglobulin E Today J45.909 - Unspecified asthma, uncomplicated Erythrocyte Sedimentation Rate Today J45.909 - Unspecified asthma, uncomplicated Medications: New fluticasone propion-salmeterol 230-21 mcg/actuation (Advair HFA) 2 puffs inhalation Q12H 30 days 12 grams 11RF Changed From albuterol sulfate 90 mcg/actuation (ProAir HFA) 2 puffs inhalation Q6H PRN To albuterol sulfate 90 mcg/actuation (ProAir HFA) 2 puffs inhalation Q6H 30 days PRN 8.5 grams 11RF shortness of breath or wheezing From albuterol sulfate inhalation Q6H PRN To albuterol sulfate 2.5 mg (3 mL) inhalation Q6H 30 days PRN 180 mL 11RF shortness of breath or wheezing Coding Level of Care Code Est Pt Level 4 (02119) Diagnoses Severe persistent asthma without complication J45.50 Asthma complication type: uncomplicated Asthma persistence: persistent Asthma severity: severe Chronic allergic rhinitis J30.9 BUZZ (obstructive sleep apnea) G47.33 Time Spent (min) 17
== END 2023-07-23 11:02 | disposition home or self-care (01) ==
PROVIDERS: PCP Nurse Practitioner Family; Visit Provider Hospitalist
DX: J45.50 Severe persistent asthma, uncomplicated (principal); J30.9 Allergic rhinitis, unspecified; G47.33 Obstructive sleep apnea (adult) (pediatric)
CPT/HCPCS: 99214

== ENCOUNTER → 2023-07-23 10:36 | Outpatient (BNVA) | payer OTHER, SELFPAY | PROVIDERS: PCP Nurse Practitioner Family; Visit Provider Hospitalist | DX: J45.50 Severe persistent asthma, uncomplicated (principal); J30.9 Allergic rhinitis, unspecified; G47.33 Obstructive sleep apnea (adult) (pediatric) | CPT/HCPCS: 99212 ==

== ENCOUNTER 2023-08-09 08:06 | Outpatient (REF) | payer OTHER, SELFPAY ==
--- NOTE | ~2023-08-09 | XR_ITS ---
EXAMINATION: XR SACROILIAC JOINTS CLINICAL INFORMATION: Sacrococcygeal disorders. COMPARISON: None available. TECHNIQUE: 3 views of the sacroiliac joints FINDINGS: Bones and soft tissues are normal. No fracture. Alignment is anatomic. Sacroiliac joint spaces are well-maintained without erosions or surrounding sclerosis. XR/XR sacroiliac joint 1-2V IMPRESSION: Normal sacroiliac joints.
[2023-08-09 11:37] LABS: Appearance Urine Clear; Color Urine Yellow; Glucose Urine UA Negative (Negative); Leukocyte Esterase Urine Negative (Negative); Nitrite Urine Negative (Negative); PH 6.5 (5.0-9.0); Specific Gravity - Urine >= 1.030 (1.005-1.025); Urine Blood Negative (Negative); Urine Ketones Negative (Negative); Urine Protein Negative (Neg-Trace)
[2023-08-09 11:39] LABS: MANUAL DIFF FLAG NO
[2023-08-09 11:48] LABS: Basophils Percent Auto 0.4 % (0-2); Eosinophils Absolute Auto 0.2 X10*3/uL (0.0-0.4); Eosinophils Percent Auto 2.6 % (0-4); Hematocrit 42.6 % (37.0-47.0); Hemoglobin 13.7 g/dl (12.0-16.0); Imm Gran Abs Auto 0.03 X10*3/uL (0.00-0.03); Imm Gran Pct Auto 0.4 % (0.0-0.4); Lymphocytes Absolute Auto 2.6 X10*3/uL (1.2-4.9); Lymphocytes Percent Auto 33.5 % (20-40); Mean Corpuscular HGB Conc 32.2 g/dl (31.0-35.0); Mean Corpuscular Hemoglobin 26.9 pg (27.0-33.0); Mean Corpuscular Volume 83.7 fL (80.0-98.0); Mean Platelet Volume 9.1 fL (9.4-12.3); Monocytes Absolute Auto 0.7 X10*3/uL (0.1-1.2); Monocytes Percent Auto 8.5 % (2-11); Neutrophils Absolute Auto 4.3 x10*3/uL (2.0-8.3); Neutrophils Percent Auto 54.6 % (45-73); Platelet Count 331 X10*3/uL (160-400); Red Blood Count 5.09 X10*6/uL (4.20-5.50); Red Cell Distribution Width 13.2 % (11.0-16.0); White Blood Count 7.8 X10*3/uL (4.8-10.8)
[2023-08-09 12:06] LABS: Alanine Aminotransferase 22 U/L (0-31); Alkaline Phosphatase 83 U/L (39-117); Anion Gap 13 (12-20); Aspartate Amino Transferase 16 U/L (5-31); Bilirubin Total 0.2 mg/dL (0.0-1.0); Blood Urea Nitrogen 12 mg/dL (9-16); Calcium 9.3 mg/dL (8.4-10.2); Carbon Dioxide 24 mmol/L (22-29); Chloride 106 mmol/L (96-108); Cholesterol 134 mg/dL (<200); Estimated Glomerular Filt Rate > 60; Glucose Fasting 83 mg/dL (60-99); Glucose Random 83 mg/dL (60-115); HDL Cholesterol 52 mg/dL (>40); LDL Cholesterol Calculated 69 mg/dL (<100); Potassium 3.7 mmol/L (3.3-5.1); Sodium 139 mmol/L (135-145); Total Protein 7.5 g/dL (6.5-8.0); Triglycerides 66 mg/dL (<150)
[2023-08-09 12:20] LABS: Erythrocyte Sedimentation Rate 7 MM/HR (0-20)
[2023-08-09 12:27] LABS: TSH reflex Free T4 2.56 uIU/mL (0.32-4.0)
[2023-08-10 20:49] LABS: Immunoglobulin E 185 kU/L (<OR=114)
== END 2023-08-09 08:07 | disposition home or self-care (01) ==
LOC: HO.HMGCX 08:06
PROVIDERS: PCP Nurse Practitioner Family; Referring Provider Hospitalist; Visit Provider Nurse Practitioner Family
DX: J45.909 Unspecified asthma, uncomplicated (principal); M53.3 Sacrococcygeal disorders, not elsewhere classified; G89.29 Other chronic pain; E03.9 Hypothyroidism, unspecified; E28.2 Polycystic ovarian syndrome
CPT/HCPCS: 36415; 72200; 80048; 80053; 80061; 81003; 82785; 84443; 85025; 85652

== ENCOUNTER 2023-08-17 12:05 | Outpatient (AMB) | payer OTHER, SELFPAY ==
--- NOTE | 2023-08-17 12:13 | AM.OFFWIN_ITS ---
Intake Vital Signs 08/17/23 12:15 Height 5 ft Weight 269 lb BMI 52.5 BP 134/72 Blood Pressure Location Rt brachial Position Sitting Pulse 106 H Pulse Source Pulse Oximeter Temp 98.2 F Temp Source Oral Pulse Oximetry (%) 97 Oxygen Delivery Method Room Air Intake Visit Reasons: EP swollen tonsils Intake Note: Pt is here c/o swollen tonsils for four days. Patient Tobacco Use Status: Never used Tobacco Allergies cat dander [CATS] Allergy (Unknown, Verified 08/17/23 12:15) RASH, WHEEZING dog dander [DOGS] Allergy (Unknown, Verified 08/17/23 12:15) RASH, WHEEZING montelukast Adverse Reaction (Mild, Verified 08/17/23 12:15) Depression Do you need a note to return to daycare/school/sports/work: Yes HPI HPI Comments History of Present Illness Details 22-year-old female presents today with c hief complaint of swollen tonsils and a sore throat for 5 days. She denies fever chills sweats myalgias nausea or vomiting. She reports similar episode of swollen tonsils about once a year. She states she is unsure of any prior diagnosis of strep. Rapid strep negative today [facility] Medical History (Updated 08/17/23 @ 12:45 by TOMY Mahan) Obesity Chronic allergic rhinitis BUZZ (obstructive sleep apnea) Asthma Asthma Hypothyroidism Ocular hypertension Prolactinoma Cervical lymphadenopathy Vitamin D deficiency Andrews's disease Microprolactinoma Generalized headaches Anxiety Eczema PCOS (polycystic ovarian syndrome) Pituitary microadenoma with hyperprolactinemia Hypothyroid Asthma Surgical History No history of previous surgery Family History Paternal Grandmother Diabetes Father Asthma Mental health disorder Sister Asthma Mental health disorder Mother Mental health disorder Social History Housing: House Alcohol intake: never Patient Tobacco Use Status: Never used Tobacco e-Cigarette/Vaping Use: Never Used Second Hand Smoke Exposure: No service: No Current occupational status: unemployed Sexual orientation: Straight/Heterosexual Gender identity: Female Cognitive needs: No Hearing needs: No Vision needs: No Female Reproductive History Menstrual Age of Menarche: 12 Review of Systems ENT Reports sore throat Physical Exam Vital Signs: Last Vital Signs Temp 98.2 F 08/17/23 12:15 Pulse 106 H 08/17/23 12:15 BP 134/72 08/17/23 12:15 Pulse Ox 97 08/17/23 12:15 Oxygen Delivery Method Room Air 08/17/23 12:15 BMI result Body Mass Index 52.5 Const General: no acute distress HEENT Head: Yes normal to inspection, Yes normocephalic and Yes atraumatic Ears: hearing grossly normal bilaterally, external ears normal, TM's normal bilaterally, TM normal on the right, TM normal on the left and EAC's normal General nose exam: Normal external nose present Face and sinus: Yes normal facial exam and Yes sinuses nontender Mouth: Normal oral and palatal mucosa present Throat: Yes posterior oropharynx abnormal (mild erythema . no tonsillar emlargement) Eyes General: appearance normal, both eyes and all related structures Resp Effort & Inspection: normal respiratory effort and able to speak in complete sentences Auscultation: clear to auscultation bilaterally Cardio Rate: regular rate Rhythm: regular rhythm Results AMB Rapid Strep AMB Rapid Strep Negative Last Edit by Elmira Ruano CMA on 08/17/23 12:26 Results Reviewed Results Reviewed: Laboratory Last Values Strep Scn Rapid Clinic Negative 08/17/23 12:26 Assessment & Plan Assessment & Plan (1) Sore throat: Code(s): J02.9 - Acute pharyngitis, unspecified Plan The patient will rest at home and drink plenty of fluids. She will await the results of the viral screen today Orders: Orders AMB Rapid Strep Screen Today Z13.9 - Encounter for screening, unspecified Dontrell Hatch MD SARS-CoV2/FLU/RSV Today J02.9 - Acute pharyngitis, unspecified TOMY Mahan Coding Level of Care Code Est Pt Level 3 (55250) Diagnoses Sore throat J02.9
[2023-08-17 12:15] VITALS: BP 134/72; PULSE 106; TEMP 36.8; O2SAT 97; BMI 52.5
== END 2023-08-17 12:56 | disposition home or self-care (01) ==
PROVIDERS: PCP Nurse Practitioner Family; Visit Provider Physician Assistant Medical
DX: J02.9 Acute pharyngitis, unspecified (principal)
CPT/HCPCS: 87880; 99213

== ENCOUNTER 2023-08-17 16:54 | Outpatient (REF) | payer OTHER, SELFPAY ==
[2023-08-17 17:46] LABS: Influenza A PCR NEGATIVE (Negative); Influenza B PCR NEGATIVE (Negative); Resp Syncy Virus RNA Qual PCR NEGATIVE (Negative); SARS COV2 PCR INHOUSE POSITIVE (Negative)
== END 2023-08-17 16:55 | disposition home or self-care (01) ==
LOC: HO.LNP 16:54
PROVIDERS: Visit Provider Physician Assistant Medical
DX: Z11.52 Encounter for screening for COVID-19 (principal); Z20.822 Contact with and (suspected) exposure to COVID-19; J02.9 Acute pharyngitis, unspecified
CPT/HCPCS: 0241U

== ENCOUNTER 2023-09-02 08:57 | Outpatient (AMB) | payer OTHER, SELFPAY ==
--- NOTE | 2023-09-02 09:04 | MHC.OFFVIS ---
Intake Vital Signs 09/02/23 09:08 Height 5 ft Weight 224 lb 13.944 oz BMI 43.9 BP 132/80 Blood Pressure Location Lt brachial Position Sitting Pulse 79 Intake Visit Reasons: NPV/Glogowski/Chest pain Intake Note: [employer] appointment for chest pain Accompanied by: Father Allergies cat dander [CATS] Allergy (Unknown, Verified 08/17/23 12:15) RASH, WHEEZING dog dander [DOGS] Allergy (Unknown, Verified 08/17/23 12:15) RASH, WHEEZING montelukast Adverse Reaction (Mild, Verified 08/17/23 12:15) Depression Medication List - Last Reconciled 09/02/23 by Yousuf Vidales MD albuterol sulfate 90 mcg/actuation (ProAir HFA) 2 puffs inhalation Q6H PRN 30 days albuterol sulfate 2.5 mg (3 mL) inhalation Q6H PRN 30 days benzoyl peroxide 2.5% 1 appl topical DAILY betamethasone dipropionate 0.05% 1 appl topical DAILY PRN cholecalciferol (vitamin D3) 50 mcg PO DAILY desog-e.estradiol/e.estradiol 0.15-0.02 mgx21 /0.01 mg x 5 (Kariva (28)) 1 tab PO DAILY divalproex ER 250 mg PO DAILY epinephrine (EpiPen 2-Michael) 0.3 mg (0.3 mL) IM Q10M PRN 30 days fluticasone propion-salmeterol 115-21 mcg/actuation (Advair HFA) 2 puffs inhalation Q12H 30 days fluticasone propion-salmeterol 230-21 mcg/actuation (Advair HFA) 2 puffs inhalation Q12H 30 days fluticasone propionate 50 mcg/actuation 1 spray intranasal DAILY hydrocortisone 2.5% topical lamotrigine 25 mg PO BID levocetirizine 5 mg PO BID levothyroxine 112 mcg PO DAILY 30 days loratadine 10 mg PO DAILY meclizine 25 mg PO DAILY PRN 20 days metronidazole 0.75% 1 appl topical BID mometasone-formoterol 200-5 mcg/actuation (Dulera) 2 puffs inhalation Q12H 30 days nebulizers As directed omalizumab (Xolair) 75 mg (0.5 mL) subcut Q2W 12 months tiotropium bromide 2.5 mcg/actuation (Spiriva Respimat) 2 puffs inhalation DAILY 30 days trazodone 150 mg PO BEDTIME PRN tretinoin 0.025% 1 appl topical DAILY 30 days venlafaxine 75 mg PO Q12H 90 days HPI HPI Comments History of Present Illness Details Karma was referred here for symptoms of chest discomfort. Patient says that she has been having chest discomfort which has been different in the last few months. She describes sudden onset sharp tightness in her chest associated with shortness of breath. Symptoms last for less than a minute. Symptoms then dissipate. Symptoms are not with exertion. She does have exertional shortness of breath related to her obesity as well as asthma. She is currently on inhaler therapy. She is trying aggressively lose weight. She has no other significant cardiovascular risk factors. She does suffer from anxiety. She also says that she gets symptoms of lightheadedness and then occasionally heart rate goes fast. She is worried about POTS. Sister was diagnosed with Carlitos-Danlos syndrome. This is not confirmed. She is scheduled to see supervisor education in the future. She denies any syncopal episodes. No other heart failure symptoms. [facility] Medical History Obesity Chronic allergic rhinitis BUZZ (obstructive sleep apnea) Asthma Asthma Hypothyroidism Ocular hypertension Prolactinoma Cervical lymphadenopathy Vitamin D deficiency Andrews's disease Microprolactinoma Generalized headaches Anxiety Eczema PCOS (polycystic ovarian syndrome) Pituitary microadenoma with hyperprolactinemia Hypothyroid Asthma Surgical History No history of previous surgery Family History Paternal Grandmother Diabetes Father Asthma Mental health disorder Sister Asthma Mental health disorder Mother Mental health disorder Social History Housing: House Alcohol intake: never Patient Tobacco Use Status: Never used Tobacco e-Cigarette/Vaping Use: Never Used Second Hand Smoke Exposure: No service: No Current occupational status: unemployed Sexual orientation: Straight/Heterosexual Gender identity: Female Cognitive needs: No Hearing needs: No Vision needs: No Female Reproductive History Menstrual Age of Menarche: 12 Review of Systems Const Denies chills, Denies daytime sleepiness, Denies fatigue, Denies fever(s), Denies frequent falls, Denies poor appetite, Denies snoring, Denies stops breathing during sleep, Denies weakness, Denies weight gain and Denies weight loss Eyes Denies loss of vision ENT Denies dizziness and Denies hearing loss Card Denies chest pain, Reports chest pain at rest, Denies claudication, Denies leg edema, Denies lightheadedness, Denies palpitations, Denies dyspnea, Denies dyspnea on exertion and Denies orthopnea Resp Denies cough, Denies excessive phlegm production, Denies dyspnea, Denies dyspnea on exertion, Denies snoring and Denies wheezing GI Denies abdominal pain, Denies hematochezia, Denies change in bowel habits, Denies nausea and Denies vomiting Denies urinary frequency and Denies dysuria Musc Denies arthralgias, Denies muscle weakness, Denies numbness and Denies other (frequent falls) Skin/Breast Denies nail changes and Denies rash Neuro Denies Abnormal speech present, Denies dizziness, Denies frequent falls, Denies loss of vision, Denies memory loss, Denies numbness and Denies weakness Psych Denies depression and Denies memory loss Endo Denies fatigue and Denies palpitations Jose David/Lymph Reports easy bruising and Reports other (anemia) Aller/Immun Denies wheezing Physical Exam Vital Signs: Last Vital Signs Pulse 79 09/02/23 09:08 BP 132/80 09/02/23 09:08 BMI result Body Mass Index 43.9 Const General: cooperative, comfortable, no acute distress, alert and awake Nutritional Appearance: obese centrally obese Orientation/consciousness: patient oriented x3 Limitations: no limitations HEENT Head: Yes normocephalic and Yes atraumatic Neck Neck: Yes trachea midline, Yes supple and Yes no JVD Resp Effort & Inspection: normal respiratory effort Auscultation: clear to auscultation bilaterally Cardio Jugular venous distension: no JVD Palpation: normal PMI Rate: regular rate Rhythm: regular rhythm Heart sounds: S1 normal heart sound present, S2 normal heart sound present, no click, no gallops, no murmurs and no rubs GI Inspection: Yes obesity Auscultation: normal bowel sounds Skin General skin exam: no rashes or lesions noted Neuro General: patient oriented x3 and no focal motor deficits Speech: No Abnormal speech present Extrem General: Yes no clubbing, cyanosis or edema Psych Affect: Anxious affect present Office Procedures EKG Details: EKG shows normal sinus rhythm with incomplete right bundle-branch block, unchanged from before [id number], Complete Assessment & Plan Assessment & Plan (1) Chest discomfort: Code(s): R07.89 - Other chest pain Plan: Patient with symptoms of chest discomfort which are fairly atypical for myocardial ischemia. She has no major risk factors. She does have only risk factor of obesity. We discussed about management obesity which is going to be important. Would suggest a regular treadmill stress test to assess for ischemia and exercise capacity. Also suggest echocardiogram to evaluate for LV systolic and diastolic function as well as RV systolic pressure and function as well as pulmonary hypertension as well as ascending aortic size. These tests will be scheduled in near future. Further treatment based on the findings. (2) Dizziness: Code(s): R42 - Dizziness and giddiness Plan: Symptoms of dizziness which are probably related to relative hypovolemia. Less likely that she has POTS. Would suggest her to have a head-up tilt-table test for the same. No other testing is indicated at this point time advised to increase fluid intake. Follow up in the clinic in 2 months time, sooner p.r.n.. Thank you for allowing me to partake in her care Medications: Changed From levocetirizine 5 mg PO BID 30 days 60 tabs 0RF To levocetirizine 5 mg PO BID Coding Level of Care Code New Pt Level 3 (21795) Diagnoses Chest discomfort R07.89 Dizziness R42 CPT Codes EKG - CPT: 54867-[id number], Complete ([id number])
[2023-09-02 09:08] VITALS: BP 132/80; PULSE 79; BMI 43.9
== END 2023-09-02 09:35 | disposition home or self-care (01) ==
PROVIDERS: PCP Nurse Practitioner Family; Visit Provider Internal Medicine Cardiovascular Disease
DX: R07.89 Other chest pain (principal); R42 Dizziness and giddiness
CPT/HCPCS: 93010; 99203

== ENCOUNTER → 2023-09-02 08:57 | Outpatient (BNVA) | payer OTHER, SELFPAY | PROVIDERS: PCP Nurse Practitioner Family; Visit Provider Internal Medicine Cardiovascular Disease | DX: R07.89 Other chest pain (principal); R42 Dizziness and giddiness | CPT/HCPCS: 93005; 99202 ==

== ENCOUNTER 2023-09-15 08:18 | Outpatient (AMB) | payer OTHER, SELFPAY ==
[2023-09-15 08:32] VITALS: BMI 51.4
--- NOTE | 2023-09-15 08:32 | A.OFFVIS_ITS ---
Intake VS Expanded 09/15/23 08:32 Height 5 ft Weight 263 lb 3.711 oz BMI 51.4 Intake Visit Reasons: obesity/CONFIRMED Allergies cat dander [CATS] Allergy (Unknown, Verified 08/17/23 12:15) RASH, WHEEZING dog dander [DOGS] Allergy (Unknown, Verified 08/17/23 12:15) RASH, WHEEZING montelukast Adverse Reaction (Mild, Verified 08/17/23 12:15) Depression HPI Nutrition Presentation Details Pt presents for MNT f/u for morbid obesity Pt reports gradually working on choosing GF/Nu free/dairy free foods due to intolerance Reports challenges with finding foods free of allergens physical activity: 10 minutes stretches 3 times/wk fruits/day: none lately non starchy ve- 1 x/wk water : 80 oz /day (including juice/coffee , sometimes has soda) Eating out 1-2 x/wk B at around noon: tuna onions, lacey , coffee or orange juice 4-6 pm rice/meat or cereal (cocoa pebble s or honey nut cheerios 9-10 pm last night salad with chicken or cereal with almond milk Most Recent Diabetes Results: Cholesterol 134 mg/dL (<200) 08/09/23 HDL Cholesterol 52 mg/dL (>40) 08/09/23 Triglycerides 66 mg/dL (<150) 08/09/23 Creatinine 0.77 mg/dL (0.5-1.4) 08/09/23 Blood Urea Nitrogen 12 mg/dL (9-16) 08/09/23 Sodium 139 mmol/L (135-145) 08/09/23 Potassium 3.7 mmol/L (3.3-5.1) 08/09/23 Chloride 106 mmol/L (96-108) 08/09/23 Carbon Dioxide 24 mmol/L (22-29) 08/09/23 Calcium 9.3 mg/dL (8.4-10.2) 08/09/23 AST 16 U/L (5-31) 08/09/23 ALT 22 U/L (0-31) 08/09/23 Total Protein 7.5 g/dL (6.5-8.0) 08/09/23 Albumin 4.0 g/dL (3.5-5.0) 08/09/23 [facility] Medical History Obesity Chronic allergic rhinitis BUZZ (obstructive sleep apnea) Asthma Asthma Hypothyroidism Ocular hypertension Prolactinoma Cervical lymphadenopathy Vitamin D deficiency Andrews's disease Microprolactinoma Generalized headaches Anxiety Eczema PCOS (polycystic ovarian syndrome) Pituitary microadenoma with hyperprolactinemia Hypothyroid Asthma Surgical History No history of previous surgery Family History Paternal Grandmother Diabetes Father Asthma Mental health disorder Sister Asthma Mental health disorder Mother Mental health disorder Social History Housing: House Alcohol intake: never Patient Tobacco Use Status: Never used Tobacco e-Cigarette/Vaping Use: Never Used Second Hand Smoke Exposure: No service: No Current occupational status: unemployed Sexual orientation: Straight/Heterosexual Gender identity: Female Cognitive needs: No Hearing needs: No Vision needs: No Female Reproductive History Menstrual Age of Menarche: 12 Assessment & Plan Assessment & Plan (1) Morbid obesity with BMI of 50.0-59.9, adult: Code(s): E66.01 - Morbid (severe) obesity due to excess calories; Z68.43 - Body mass index [BMI] 50.0-59.9, adult Plan: Pt has Increased intake of empty calorie foods, large portion sizes and lack of understanding of wheat/nut/dairy sources of foods which she reports having sensitivity to. wt: 122 kg (121 kg -07/2023), 119kg (09/2023 Est kcal needs as per MSJ: 2300 (40% carb, 30% protein/fat) Est fluid needs as per 25-30 ml/d: 3050- 3660 Est prot per day as per 1 g/kg bw: 122 Recommend fiber intake : 8-10 g per day and gradually increase to 25-28 g per day for women and 35-38 g for men or as tolerated Recommend sodium intake per day : less than 2000 mg Educated patient on: ( R = reviewed V = verbalizes understanding N/R = needs review N/A = not applicable * practice mindful eating strategies, eating slowly, savoring food: R, * Food sources of carbohydrate, adequate serving sizes and its role in various health conditions: R * Differences between complex carbohydrates a simple carbohydrates, role of fiber in diet: R * Differences between types of fats and role in diet (mono on saturated fat fatty acids, saturated fatty acids, trans fats): R * Food sources of sodium in salt and healthy modifications for heart health in kidney health: NR * Vitamins and minerals: R * Healthy plate method concept: R * Physical activity: Benefits a precaution: R - contemplating walking routine * Hydration : R, V * Choosing naturally gluten free foods, when making meals at home or eating out or choosing frozen meals : R Patient Instructions: Have a meal consisting of non starchy veg with 4-6 oz of protein at least twice a week as a routine Have 2 fruits a day on a daily basis - replacing snacks with gluten/dairy/nuts keep working on including physical activity on a daily basis 10-20 minutes daily as a routine Coding Level of Care Code Nutr Indiv Subseq (48128) Diagnoses Morbid obesity with BMI of 50.0-59.9, adult E66.01; Z68.43 Time Spent (min) 30
== END 2023-09-15 08:59 | disposition home or self-care (01) ==
PROVIDERS: PCP Nurse Practitioner Family; Visit Provider Dietitian, Registered
DX: E66.01 Morbid (severe) obesity due to excess calories (principal); Z68.43 Body mass index [BMI] 50.0-59.9, adult

== ENCOUNTER → 2023-09-15 08:18 | Outpatient (BNVA) | payer OTHER, SELFPAY | PROVIDERS: PCP Nurse Practitioner Family; Visit Provider Dietitian, Registered | DX: E66.01 Morbid (severe) obesity due to excess calories (principal); Z68.43 Body mass index [BMI] 50.0-59.9, adult; Z71.3 Dietary counseling and surveillance | CPT/HCPCS: 97803 ==

== ENCOUNTER 2023-09-16 09:40 | Outpatient (AMB) | payer OTHER, SELFPAY ==
--- NOTE | 2023-09-16 09:41 | MHC.OFFVIS ---
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 Sutton 22-year-old female presents today for evaluation of multiple joint pain and possible concerns for hypermobility/Carlitos-Danlos. She reports chronic pain to her joints, morning stiffness that last at least 30 minutes to and hour. She says that her joints sometimes feels swollen with or without activity but no redness or warmth observed by patient. She would like to be evaluated for Carlitos-Danlos because she thinks she has hypermobility. The patient reports that she has completed a questionnaire and the results suggests that she may Carlitos-Danlos. PMH - Hypothyrpoid, PCOS, Prolactinoma - Sees Endocrine Follows- with eye MD and watched for Glaucoma - took steroid eye drops as she being watched for Glaucoma. But did not have oral steroid. Eyes feel better closed, they are irritated by the sun and flashing lights. Mom has lupus - 10 years Sun rash that sometimes blisters; often feels tired and fatigued. Gets mouth sores - happen randomly in her cheeks - small white pimply bumps, 09/07/2023 last episode Denies hair loss or scalp sores chronic diarrhea - she thinks likely due to food allergies, no blood, no mucous in stool. hypothyroid since 2018 or 2019. - Familial. denies raynauds symptoms. History of asthma with severe allergies [facility] Medical History (Updated 09/16/23 @ 11:25 by Christine Infante, [facility]) Pes planus of both feet Family history of systemic lupus erythematosus (SLE) in mother Pain in joint involving multiple sites Obesity Chronic allergic rhinitis BUZZ (obstructive sleep apnea) Asthma Asthma Hypothyroidism Ocular hypertension Prolactinoma Cervical lymphadenopathy Vitamin D deficiency Andrews's disease Microprolactinoma Generalized headaches Anxiety Eczema PCOS (polycystic ovarian syndrome) Pituitary microadenoma with hyperprolactinemia Hypothyroid Asthma Surgical History No history of previous surgery Family History (Updated 09/16/23 @ 09:46 by SHIVAM Lisa) Paternal Grandmother Diabetes Father Asthma Mental health disorder Sister Asthma Mental health disorder Mother Mental health disorder Other Arthritis Social History Housing: House Alcohol intake: never Patient Tobacco Use Status: Never used Tobacco e-Cigarette/Vaping Use: Never Used Second Hand Smoke Exposure: No service: No Current occupational status: unemployed Sexual orientation: Straight/Heterosexual Gender identity: Female Cognitive needs: No Hearing needs: No Vision needs: No Female Reproductive History Menstrual Age of Menarche: 12 Total pregnancies: 0 Review of Systems Const All systems reviewed & are unremarkable except as noted in HPI and below Physical Exam Vital Signs: Last Vital Signs Temp 97.0 F 09/16/23 09:42 Pulse 105 H 09/16/23 09:42 BP 110/70 09/16/23 09:42 Pulse Ox 97 09/16/23 09:42 Oxygen Delivery Method Room Air 09/16/23 09:42 BMI result Body Mass Index 51.9 APPEARANCE: Patient in no acute distress, groomed, nourished EYES no redness, normal EARS:? External ear normal. NOSE/SINUS:? Airflow through both nares, no nasal discharge, no bleeding THROAT:? Oral mucosa moist, no ulcerations NECK:? No thyromegaly or masses, no adenopathy, trachea midline. HEART:? Regular rhythm, S1-S2 heard, no murmurs, rubs or gallops. LUNG:? Clear to percussion and auscultation EXTREMITIES:? No edema, no calf tenderness, normal peripheral pulses. She is able to flex the thumb but it did not touch her forearm. I did not see a passive extension of the figth MCP at 90 degree, There was not significant hyperextension of her elbow or knees. She was able to touch the floor with her hands without bending her knees (she is 5ft). NEURO:? Oriented and alert x3.? No focal weakness.? Reflexes symmetric.? Gait normal. SKIN:? There are no skin lesions evident. No objective signs of Raynaud's phenomenon. JOINT EXAM: Cervical Spine:.? Full range of motion without pain; no tenderness. Thoracic Spine:.? No scoliosis.? No tenderness on palpation. Lumbar Spine:.? Alignment normal.? Full range of motion without pain, no tenderness. Chest Wall:.?Tenderness, but no swelling, increased warmth or erythema. Hands:.? Normal pain-free range of motion mild tenderness across right MCP but no swelling, increased warmth or erythema. Able to make a full fist and has a good rock climbing team member strength. Wrists:.? Normal pain-free range of motion without tenderness, swelling, increased warmth or erythema. Elbows:. Normal pain-free range of motion mild tenderness to lateral epicondyles, but no swelling, increased warmth or erythema. Shoulders:.?? Full range of motion without pain. No tenderness, weakness, swelling, increased warmth or erythema. Hips:.? Full range of motion without pain. Hip bursa:.? No tenderness. Knees:.?? Normal pain-free range of motion without tenderness, swelling, increased warmth or erythema.? There is no effusion or crepitation Ankles:.? Normal pain-free range of motion without tenderness, swelling, increased warmth or erythema. Feet:.? Normal pain-free range of motion without tenderness, swelling, increased warmth or erythema. Tender points:? No tenderness to digital palpation at the occiput, trapezius, second rib, lateral epicondyle, knees, greater trochanter and gluteal area bilaterally ? Results Reviewed Results Reviewed: Laboratory Tests 08/09/23 08:25 WBC 7.8 RBC 5.09 Hgb 13.7 Hct 42.6 ESR 7 BUN 12 Creatinine 0.77 Estimated GFR > 60 AST 16 ALT 22 Alkaline Phosphatase 83 TSH 2.56 IgE 185 H Assessment & Plan Assessment & Plan (1) Morbid obesity with BMI of 50.0-59.9, adult: Code(s): E66.01 - Morbid (severe) obesity due to excess calories; Z68.43 - Body mass index [BMI] 50.0-59.9, adult (2) Pain in joint involving multiple sites: Code(s): M25.50 - Pain in unspecified joint (3) Family history of systemic lupus erythematosus (SLE) in mother: Code(s): Z82.69 - Family history of other diseases of the musculoskeletal system and connective tissue (4) Microprolactinoma: Code(s): D35.2 - Benign neoplasm of pituitary gland (5) Obesity, morbid, BMI 50 or higher: Code(s): E66.01 - Morbid (severe) obesity due to excess calories (6) Pes planus of both feet: Code(s): M21.41 - Flat foot [pes planus] (acquired), right foot; M21.42 - Flat foot [pes planus] (acquired), left foot Plan #Joint Pain/Fml Hx of SLE: Clinically, at this time, the patient does not present as having a connective tissue disease or inflammatory process from a rheumatologic perspective. I think her joint pain main part caused by excessive weight and deconditioning. The patient is living with saw major health concerns. She has a prolactinoma that affects her hormone- hypothyroid from very young age, PCOS, takes control for hormone regulation, and may develop visual concerns. She did share that her mom has SLE. I think it is reasonable to do further evaluation with lab studies for Rheum panel. #Hypermobile: At this time I do not see hyperreflexia in the patient. She does have the ability to touch the floor with palms(see PE). I discussed with her that she can certainly follow-up with a specialist for ED genetic testing etc. I also recommend that if she feels like her joints are hypermobile then refrain from activities that will over stretch the joints. Physical therapy can be beneficial to teach best activities and joint management #Obesity/Pes Planus: Given her challenges with hormones, this makes it already hard to maintain a healthy weight. I encouraged patient to consider increased activity levels and nutrition changes that can help. Her joints david certainly benefit from weight reduction. She has very flat feet with a wide toebox- recommend supportive shoes to reduce the soreness to ankles and instep. I spent 40 minutes reviewing history, evaluating and educating patient and documenting Follow-up in 1 month to review findings. If there are any concerns will call patient for appointment Orders: Orders Anti DNA DS Antibody Today M25.50 - Pain in unspecified joint Anti-Centromere B Antibodies Today M25.50 - Pain in unspecified joint Complement C4 Today M25.50 - Pain in unspecified joint Complete Blood Count Auto Diff Today M25.50 - Pain in unspecified joint Comprehensive Met. Panel Today M25.50 - Pain in unspecified joint Creatine Kinase Total Today M25.50 - Pain in unspecified joint Erythrocyte Sedimentation Rate Today M25.50 - Pain in unspecified joint UA w Microscopic Today M25.50 - Pain in unspecified joint Cyclic Citrullinated Peptide Today M25.50 - Pain in unspecified joint BRIGHT Reflex Titer and Pattern Today M25.50 - Pain in unspecified joint Anti Extractable Nuclear Ag Today M25.50 - Pain in unspecified joint Complement C3 Today M25.50 - Pain in unspecified joint C Reactive Protein Today M25.50 - Pain in unspecified joint Immunoglobulins,IgG IgA IgM Today M25.50 - Pain in unspecified joint Sjogren's Antibodies Today M25.50 - Pain in unspecified joint HLA B27 Today M25.50 - Pain in unspecified joint Rheumatoid Factor Today M25.50 - Pain in unspecified joint Coding Level of Care Code New Pt Level 4 (85579) Diagnoses Morbid obesity with BMI of 50.0-59.9, adult E66.01; Z68.43 Pain in joint involving multiple sites M25.50 Family history of systemic lupus erythematosus (SLE) in mother Z82.69 Microprolactinoma D35.2 Obesity, morbid, BMI 50 or higher E66.01 Pes planus of both feet M21.41; M21.42
[2023-09-16 09:42] VITALS: BP 110/70; PULSE 105; TEMP 36.1; O2SAT 97; BMI 51.9
== END 2023-09-16 10:25 | disposition home or self-care (01) ==
PROVIDERS: PCP Nurse Practitioner Family; Visit Provider Nurse Practitioner Family
DX: E66.01 Morbid (severe) obesity due to excess calories (principal); Z68.43 Body mass index [BMI] 50.0-59.9, adult; M25.50 Pain in unspecified joint; Z82.69 Family history of other diseases of the musculoskeletal system and connective tissue; D35.2 Benign neoplasm of pituitary gland; M21.41 Flat foot [pes planus] (acquired), right foot; M21.42 Flat foot [pes planus] (acquired), left foot
CPT/HCPCS: 99204

== ENCOUNTER → 2023-09-16 09:40 | Outpatient (BNVA) | payer OTHER, SELFPAY | PROVIDERS: PCP Nurse Practitioner Family; Visit Provider Nurse Practitioner Family | DX: M25.50 Pain in unspecified joint (principal); E66.01 Morbid (severe) obesity due to excess calories; Z68.43 Body mass index [BMI] 50.0-59.9, adult; M21.41 Flat foot [pes planus] (acquired), right foot; M21.42 Flat foot [pes planus] (acquired), left foot; D35.2 Benign neoplasm of pituitary gland; Z82.69 Family history of other diseases of the musculoskeletal system and connective tissue | CPT/HCPCS: 99202 ==

== ENCOUNTER 2023-09-24 14:01 | Outpatient (REF) | payer OTHER, SELFPAY ==
[2023-09-24 14:21] LABS: MANUAL DIFF FLAG NO
[2023-09-24 15:13] LABS: Basophils Percent Auto 0.3 % (0-2); Eosinophils Absolute Auto 0.1 X10*3/uL (0.0-0.4); Eosinophils Percent Auto 0.8 % (0-4); Hematocrit 44.4 % (37.0-47.0); Hemoglobin 14.3 g/dl (12.0-16.0); Imm Gran Abs Auto 0.03 X10*3/uL (0.00-0.03); Imm Gran Pct Auto 0.4 % (0.0-0.4); Lymphocytes Percent Auto 26.2 % (20-40); Mean Corpuscular HGB Conc 32.2 g/dl (31.0-35.0); Mean Corpuscular Hemoglobin 26.9 pg (27.0-33.0); Mean Corpuscular Volume 83.5 fL (80.0-98.0); Mean Platelet Volume 8.7 fL (9.4-12.3); Monocytes Absolute Auto 0.5 X10*3/uL (0.1-1.2); Monocytes Percent Auto 6.8 % (2-11); Neutrophils Absolute Auto 5.1 x10*3/uL (2.0-8.3); Neutrophils Percent Auto 65.5 % (45-73); Platelet Count 402 X10*3/uL (160-400); Red Blood Count 5.32 X10*6/uL (4.20-5.50); Red Cell Distribution Width 13.4 % (11.0-16.0); White Blood Count 7.7 X10*3/uL (4.8-10.8)
[2023-09-24 15:14] LABS: Appearance Urine Clear; Color Urine Yellow; Glucose Urine UA Negative (Negative); Leukocyte Esterase Urine Negative (Negative); Nitrite Urine Negative (Negative); Specific Gravity - Urine 1.025 (1.005-1.025); Urine Blood Negative (Negative); Urine Ketones Negative (Negative); Urine Protein Negative (Neg-Trace)
[2023-09-24 15:17] LABS: Bacteria Urine Trace (None Seen); Hyaline Casts Urine 0-2 /LPF (0-2); RBC Urine 0-2 /HPF (0-2); WBC Urine 0-5 /HPF (0-5)
[2023-09-24 15:53] LABS: Rheumatoid Factor < 13.0 IU/mL (<15.0)
[2023-09-24 15:58] LABS: Alanine Aminotransferase 47 U/L (0-31); Albumin Level 4.1 g/dL (3.5-5.0); Alkaline Phosphatase 90 U/L (39-117); Anion Gap 11 (12-20); Aspartate Amino Transferase 36 U/L (5-31); Bilirubin Total 0.2 mg/dL (0.0-1.0); Blood Urea Nitrogen 12 mg/dL (9-16); C Reactive Protein 2.51 mg/dL (< or = 0.50); Calcium 9.5 mg/dL (8.4-10.2); Carbon Dioxide 24 mmol/L (22-29); Chloride 108 mmol/L (96-108); Estimated Glomerular Filt Rate > 60; Glucose Random 92 mg/dL (60-115); Sodium 139 mmol/L (135-145); Total Protein 8.1 g/dL (6.5-8.0)
[2023-09-24 16:17] LABS: Erythrocyte Sedimentation Rate 11 MM/HR (0-20)
[2023-09-27 11:34] LABS: IgA 239 mg/dL (47-310); IgG 1613 mg/dL (600-1640); IgM 51 mg/dL (50-300)
[2023-09-27 12:24] LABS: Anti-Centromere B Antibodies <1.0 NEG AI (<1.0 NEG)
[2023-09-27 14:38] LABS: Anti Nuclear Antibody Screen NEGATIVE (NEGATIVE)
[2023-09-27 15:19] LABS: Cyclic Citrullinated Peptide <16 UNITS
[2023-09-27 22:24] LABS: Anti DNA DS Antibody <1 IU/mL; Antibody to SS-A Antigen <1.0 NEG AI (<1.0 NEG); Antibody to SS-B Antigen <1.0 NEG AI (<1.0 NEG); SM/Ribonucleoprotein Ab <1.0 NEG AI (<1.0 NEG); Smith Protein <1.0 NEG AI (<1.0 NEG)
[2023-09-27 23:09] LABS: Complement C3 193 mg/dL (83-193)
[2023-09-29 16:38] LABS: HLA B27 Negative (Negative)
== END 2023-09-24 14:02 | disposition home or self-care (01) ==
LOC: HO.LAB 14:01
PROVIDERS: PCP Nurse Practitioner Family; Visit Provider Nurse Practitioner Family
DX: M25.50 Pain in unspecified joint (principal)
CPT/HCPCS: 36415; 80053; 81001; 82550; 82784; 85025; 85652; 86038; 86140; 86160; 86200; 86225; 86235; 86431; 86812

== ENCOUNTER → 2023-10-01 07:47 | Outpatient (REF) | payer OTHER, SELFPAY ==
--- NOTE | 2023-10-01 07:50 | CA_ITS ---
Acquisition Time: 2023-10-01 08:45:35 Total Exercise Time: 00:05:10 Test Indications: CHEST PAIN Medications: SEE MED CHART Protocol: SHYANNE Max HR: 171 BPM 86% of Pred: 197 BPM Max BP: 152/086 mmHG Max Work Load: 7.0 METS Exercise stress test exercise 5 min 10 sec of Shyanne protocol achieving 86% MPHR, with request to stop due to foot pain, SOB, and chest discomfort, with mild to moderate SOB, 4/10 chest pressure at baseline, 6/10 at peak, without arrhythmias, without dizziness, with normotensive response to exercise, with T wave inversion aVL. Chest pain and breathing returned to baseline with rest. Test reviewed with Dr. Altamirano. Referred By: Yousuf Vidales Overread By: Taty White
--- NOTE | 2023-10-01 07:50 | CA_ITS ---
Transthoracic Echocardiogram Patient (Last, First, Middle): Karma Sutton M Gender: Female Date of : 2000 Age: 22 Procedure Date: 10/01/2023 Procedure Type: Transthoracic Echocardiogram Location: OP Height: 152.4 cm Weight: 120.2 kg BSA: 2.10 m2 Heart Rate: 82 bpm BP: 108 / 64 mmHg Public Works Director: FRAN Referring MD: Yousuf Vidales MD Symptoms: R07.89 - Other chest pain Study Quality: Fair ECG Rhythm: Sinus Conclusions: - Normal left ventricular size, thickness, systolic function, and wall motion. The visually estimated ejection fraction is between 55-60%. Diastolic function is normal for age. - Normal right ventricular cavity size and systolic function. Findings Procedure Information The quality of the study was technically difficult. The study quality is limited by patients body habitus. Left Ventricle Normal left ventricular size, thickness, systolic function, and wall motion. The visually estimated ejection fraction is between 55-60%. Diastolic function is normal for age. Right Ventricle Normal right ventricular cavity size and systolic function. Atria The left atrium is normal in size. The right atrium is normal in size. Aortic Valve The aortic valve structure and function is likely normal. There is no aortic valve stenosis. There is no aortic valve regurgitation. Mitral Valve The mitral valve appears normal. There is no mitral valve regurgitation. There is no mitral valve stenosis. Pulmonic Valve The pulmonic valve is likely normal. Tricuspid Valve Normal tricuspid valve structure. There is no tricuspid valve regurgitation. Tricuspid regurgitation envelope is inadequate for calculation of right ventricular systolic pressure. Normal right atrial pressure. Great Vessels All visible segments of the aorta are normal in size. Venous The inferior vena cava is normal in size and collapses greater than 50% with inspiration. Pericardium/Pleural There is no evidence of pericardial effusion. Prior Study Comparison No prior study available for comparison. Measurements 2D Linear Measurements IVSd: 0.96 0.6-0.9/0.6-1.0 cm LVIDd: 5.38 3.9-5.3/4.2-5.9 cm LVIDd Index: 2.56 2.4-3.2/2.2-3.1 cm/m2 LVIDs: 3.23 2.0-3.6 cm LVPWd: 0.65 0.7-1.1 cm LA Diam: 3.80 2.7-3.8/3.0-4.0 cm LAIDs Index: 1.81 1.5-2.3 cm/m2 LV Mass: 192.94 67-162/88-224 g LV Mass Index: 91.88 43-95/49-115 g/m2 LVOT Diam: 2.00 3.0+(-)1.3 cm Mitral Valve MV Pk E: 1.24 MV PK A: 0.79 MV Decel Time: 152.00 E/A: 1.60 E'Lateral: 12.70 E'Medial: 11.30 E/E' Med: 11.00 E/E' Lat: 9.80 PHT: 45.00 MVA PHT: 4.89 Decel Hudspeth: 8.15 Aortic Valve AoV Pk Jhon: 1.57 AoV Pk Grad: 10.00 ADELA: 2.36 LVOT LVOT Pk Jhon: 1.23 LVOT Mn Jhon: 0.86 LVOT VTI: 0.25 LVOT Pk Grad: 6.00 LVOT Mn Grad: 4.00 LVOT Diam: 2.00 LVOT Area: 3.14 Diastolic Function MV Pk E: 1.24 MV Pk A: 0.79 E/A: 1.60 E'Medial: 11.30 E/E' Med: 11.00 E' Laterial: 12.70 E/E' Lat: 9.80 Right Ventricle TAPSE (mm): 30.50 TVS' Jhon: 14.20 Tricuspid Valve RA Press: 3.00 Great Vessels Aorta Sinus of Valsalva: 2.40 2.0-3.5 cm Ao Asc: 2.40 2.1-3.4 cm Pulmonary Valve PV Pk Jhon: 1.28 Peak PV Grad: 7.00 Updated in Other Vendor System with Status of Final Edd Altamirano MD electronically signed on 10/03/2023 11:59:27 AM with status of Final
== END ==
LOC: HO.CARD 07:47
PROVIDERS: PCP Nurse Practitioner Family; Visit Provider Internal Medicine Cardiovascular Disease
DX: R07.89 Other chest pain (principal)
CPT/HCPCS: 93017; 93306

== ENCOUNTER → 2023-10-01 07:50 | Outpatient (BNV) | payer OTHER, SELFPAY | PROVIDERS: PCP Nurse Practitioner Family; Visit Provider Internal Medicine Cardiovascular Disease | DX: R07.9 Chest pain, unspecified (principal); R06.02 Shortness of breath | CPT/HCPCS: 93016; 93018; 93350 ==

== ENCOUNTER 2023-10-04 07:34 | Outpatient (AMB) | payer OTHER, SELFPAY ==
--- NOTE | 2023-10-04 07:20 | A.OFFPC_ITS ---
Intake Visit Reasons: concern of rheum referral Allergies cat dander [CATS] Allergy (Unknown, Verified 09/16/23 09:42) RASH, WHEEZING dog dander [DOGS] Allergy (Unknown, Verified 09/16/23 09:42) RASH, WHEEZING montelukast Adverse Reaction (Mild, Verified 09/16/23 09:42) Depression Tobacco use date assessed: 10/20/22 Dental Screening Dental Screen Date: 06/29/23 HPI concern of rheum referral HPI Details Telehealth visit. Pt reports not feeling her appt was rhuematology was worth her while. I explained to pt it could take time to rule everything out, and it looked like the provider ordered a lot of blood work, which i highly recommended she have drawn. Pt has a upcoming appointment this month with rheum atology, expressed the relevance behind this follow up. I explained to the pt that if she does not feel comfortable with this next follow up appt, she can let me know, i could refer to another rheum for further eval and treatment. ? jayleen stewart component. [facility] Medical History Pes planus of both feet Family history of systemic lupus erythematosus (SLE) in mother Pain in joint involving multiple sites Obesity Chronic allergic rhinitis BUZZ (obstructive sleep apnea) Asthma Asthma Hypothyroidism Ocular hypertension Prolactinoma Cervical lymphadenopathy Vitamin D deficiency Andrews's disease Microprolactinoma Generalized headaches Anxiety Eczema PCOS (polycystic ovarian syndrome) Pituitary microadenoma with hyperprolactinemia Hypothyroid Asthma Surgical History No history of previous surgery Family History Paternal Grandmother Diabetes Father Asthma Mental health disorder Sister Asthma Mental health disorder Mother Mental health disorder Other Arthritis Social History Housing: House Alcohol intake: never Patient Tobacco Use Status: Never used Tobacco e-Cigarette/Vaping Use: Never Used Second Hand Smoke Exposure: No service: No Current occupational status: unemployed Sexual orientation: Straight/Heterosexual Gender identity: Female Cognitive needs: No Hearing needs: No Vision needs: No Female Reproductive History Menstrual Age of Menarche: 12 Questionnaire Thrive Questionnaire Date Thrive assessed: 10/20/22 I am a: Patient What is your living situation today?: I choose not to answer this question Within the past 12 months, did the food you bought not last and you didn't have the money to get more?: I choose not to answer this question Within the past 12 months, did you worry whether your food would run out before you got money to buy more?: I choose not to answer this question Please select the resources that you would like help with: None THRIVE Score: 0 AUDIT C Alcohol Use Questionnaire (AUDIT-C) 1. How often do you have a drink containing alcohol?: Never Total Score: 0 LILIANE-7 AMB Questionnaire LILIANE-7 Date LILIANE - 7 assessed: 10/20/22 Feeling nervous, anxious, or on edge: 3 = Nearly every day Not being able to stop or control worryin = Nearly every day Worrying too much about different things: 3 = Nearly every day Trouble relaxin = Nearly every day Being so restless that it is hard to sit still: 3 = Nearly every day Becoming easily annoyed or irritable: 3 = Nearly every day Feeling afraid as if something awful might happen: 3 = Nearly every day Total LLIIANE-7 score (0-4 normal; 5-9 mild; 10-14 moderate; 15-21 severe): 21 Source: Developed by Drs. Kj Morrow, Mary Jo Zhao, Christopher Feliciano and colleagues, with an educational heike from [employer]. Physical exam (Primary Care) Tobacco/Smoking Status: Tobacco use Status Tobacco use date assessed 10/20/22 06/29/23 07:59 Patient Tobacco Use Status Never used Tobacco 08/17/23 12:18 e-Cigarette/Vaping Use Never Used 06/29/23 07:59 Thrive Assessment: Date of Thrive Assessment Date Thrive assessed 10/20/22 06/29/23 07:59 Telehealth Telehealth Location of provider rendering services: practice address Location of patient: address on file Patient Identification confirmed using: Name, : Yes Telehealth method: video Patient verbally consented to treatment: Yes Patient verbally consented to billing insurance company: Yes Patient informed of any privacy concerns related to visit: Yes Minutes spent on Phone/Video with Pt.: 10 Assessment and Plan Assessment & Plan (1) Jayleen-Danlos disease: Code(s): Q79.60 - Jayleen-Danlos syndrome, unspecified Plan: blood work ordered by rheum, pt encouraged to have drawn (apparently had most of it already drawn). Expressed importance of following up with Rheum at [facility] one more time this month. If she wants to switch providers, she will let me know. (2) Morbid obesity with BMI of 50.0-59.9, adult: Code(s): E66.01 - Morbid (severe) obesity due to excess calories; Z68.43 - Body mass index [BMI] 50.0-59.9, adult (3) Family history of systemic lupus erythematosus (SLE) in mother: Code(s): Z82.69 - Family history of other diseases of the musculoskeletal system and connective tissue Coding Level of Care Code Tele Est Pt Level 3 (39441) Diagnoses Jayleen-Danlos disease Q79.60 Morbid obesity with BMI of 50.0-59.9, adult E66.01; Z68.43 Family history of systemic lupus erythematosus (SLE) in mother Z82.69
== END 2023-10-04 13:21 | disposition home or self-care (01) ==
LOC: HO.HMGC 07:34
PROVIDERS: PCP Nurse Practitioner Family; Visit Provider Nurse Practitioner Family
DX: Q79.60 Ehlers-Danlos syndrome, unspecified (principal); E66.01 Morbid (severe) obesity due to excess calories; Z68.43 Body mass index [BMI] 50.0-59.9, adult; Z82.69 Family history of other diseases of the musculoskeletal system and connective tissue
CPT/HCPCS: 99213

== ENCOUNTER 2023-10-21 08:20 | Outpatient (AMB) | payer OTHER, SELFPAY ==
--- NOTE | 2023-10-21 08:39 | A.OFFVIS_ITS ---
Intake Vital Signs 10/21/23 08:47 Height 5 ft Weight 264 lb 5.348 oz BMI 51.6 BP 120/78 Blood Pressure Location Rt brachial Position Sitting Pulse 90 Pulse Source Pulse Oximeter Pulse Oximetry (%) 98 Oxygen Delivery Method Room Air Intake Visit Reasons: PolyArthralgia Intake Note: Patient last seen 09/16/23, presents today for follow up and test results. Smoking Tobacco Packer Hand Required: No Accompanied by: Self / Same As Patient Allergies cat dander [CATS] Allergy (Unknown, Verified 10/21/23 08:48) RASH, WHEEZING dog dander [DOGS] Allergy (Unknown, Verified 10/21/23 08:48) RASH, WHEEZING montelukast Adverse Reaction (Mild, Verified 10/21/23 08:48) Depression HPI HPI Comments History of Present Illness Details Ms. Sutton 22-year-old female presents today for follow-up of initial evaluation of multiple joint pain and possible concerns for hypermobility/Carlitso-Danlos to review diagnostic findings. She reports chronic pain to her joints, morning stiffness that last at least 30 minutes to and hour. She says that her joints sometimes feels swollen with or without activity but no redness or warmth observed by patient. She would like to be evaluated for Carlitos-Danlos because she thinks she has hypermobility. The patient reports that she has completed a questionnaire and the results suggests that she may Carlitos-Danlos. Initial history 09/16/2023 Ms. Sutton 22-year-old female presents today for evaluation of multiple joint pain and possible concerns for hypermobility/Carlitos-Danlos. She reports chronic pain to her joints, morning stiffness that last at least 30 minutes to and hour. She says that her joints sometimes feels swollen with or without activity but no redness or warmth observed by patient. She would like to be evaluated for Carlitos-Danlos because she thinks she has hypermobility. The patient reports that she has completed a questionnaire and the results suggests that she may Carlitos-Danlos. PMH - Hypothyrpoid, PCOS, Prolactinoma - Sees Endocrine Follows- with eye MD and watched for Glaucoma - took steroid eye drops as she being watched for Glaucoma. But did not have oral steroid. Eyes feel better closed, they are irritated by the sun and flashing lights. Mom has lupus - 10 years Sun rash that sometimes blisters; often feels tired and fatigued. Gets mouth sores - happen randomly in her cheeks - small white pimply bumps, 09/07/2023 last episode Denies hair loss or scalp sores chronic diarrhea - she thinks likely due to food allergies, no blood, no mucous in stool. hypothyroid since 2018 or 2019. - Familial. denies raynauds symptoms. History of asthma with severe allergies [facility] Medical History Pes planus of both feet Family history of systemic lupus erythematosus (SLE) in mother Pain in joint involving multiple sites Obesity Chronic allergic rhinitis BUZZ (obstructive sleep apnea) Asthma Asthma Hypothyroidism Ocular hypertension Prolactinoma Cervical lymphadenopathy Vitamin D deficiency Andrews's disease Microprolactinoma Generalized headaches Anxiety Eczema PCOS (polycystic ovarian syndrome) Pituitary microadenoma with hyperprolactinemia Hypothyroid Asthma Surgical History No history of previous surgery Family History Paternal Grandmother Diabetes Father Asthma Mental health disorder Sister Asthma Mental health disorder Mother Mental health disorder Other Arthritis Social History Housing: House Alcohol intake: never Patient Tobacco Use Status: Never used Tobacco e-Cigarette/Vaping Use: Never Used Second Hand Smoke Exposure: No service: No Current occupational status: unemployed Sexual orientation: Straight/Heterosexual Gender identity: Female Cognitive needs: No Hearing needs: No Vision needs: No Female Reproductive History Menstrual Age of Menarche: 12 Review of Systems Const All systems reviewed & are unremarkable except as noted in HPI and below Physical Exam APPEARANCE: Patient in no acute distress, groomed, nourished EYES no redness, normal EARS:? External ear normal. NOSE/SINUS:? Airflow through both nares, no nasal discharge, no bleeding THROAT:? Oral mucosa moist, no ulcerations NECK:? No thyromegaly or masses, no adenopathy, trachea midline. HEART:? Regular rhythm, S1-S2 heard, no murmurs, rubs or gallops. LUNG:? Clear to percussion and auscultation EXTREMITIES:? No edema, no calf tenderness, normal peripheral pulses. She is able to flex the thumb but it did not touch her forearm. I did not see a passive extension of the figth MCP at 90 degree, There was not significant hyperextension of her elbow or knees. She was able to touch the floor with her hands without bending her knees (she is 5ft). NEURO:? Oriented and alert x3.? No focal weakness.? Reflexes symmetric.? Gait normal. SKIN:? There are no skin lesions evident. No objective signs of Raynaud's phenomenon. JOINT EXAM: Cervical Spine:.? Full range of motion without pain; no tenderness. Thoracic Spine:.? No scoliosis.? No tenderness on palpation. Lumbar Spine:.? Alignment normal.? Full range of motion without pain, no tenderness. Chest Wall:.?Tenderness, but no swelling, increased warmth or erythema. Hands:.? Normal pain-free range of motion mild tenderness across right MCP but no swelling, increased warmth or erythema. Able to make a full fist and has a good grounds cleaner strength. Wrists:.? Normal pain-free range of motion without tenderness, swelling, increased warmth or erythema. Elbows:. Normal pain-free range of motion mild tenderness to lateral epicondyles, but no swelling, increased warmth or erythema. Shoulders:.?? Full range of motion without pain. No tenderness, weakness, swelling, increased warmth or erythema. Hips:.? Full range of motion without pain. Hip bursa:.? No tenderness. Knees:.?? Normal pain-free range of motion without tenderness, swelling, increased warmth or erythema.? There is no effusion or crepitation Ankles:.? Normal pain-free range of motion without tenderness, swelling, increased warmth or erythema. Feet:.? Normal pain-free range of motion without tenderness, swelling, increased warmth or erythema. Tender points:? No tenderness to digital palpation at the occiput, trapezius, second rib, lateral epicondyle, knees, greater trochanter and gluteal area bilaterally ? Results Reviewed Results Reviewed: Laboratory Tests 09/24/23 14:19 WBC 7.7 RBC 5.32 Hgb 14.3 Hct 44.4 ESR 11 Creatinine 0.72 Calcium 9.5 Total Bilirubin 0.2 AST 36 H ALT 47 H C-Reactive Protein 2.51 H Total Protein 8.1 H IgG Total 1613 IgA Total 239 IgM 51 Rheumatoid Factor < 13.0 Cycl Citrul Peptide IgG <16 BRIGHT Screen NEGATIVE SS-A/Ro Antibody <1.0 NEG SS-B/La Antibody <1.0 NEG Sm (Rod) Antibody <1.0 NEG SM/ADULT PROTECTIVE CASEWORKER IgG Antibody <1.0 NEG Double Strand DNA Ab <1 Centromere B Antibody <1.0 NEG Complement C3 193 Complement C4 36 HLA-B27 Negative Assessment & Plan Assessment & Plan (1) Morbid obesity with BMI of 50.0-59.9, adult: Code(s): E66.01 - Morbid (severe) obesity due to excess calories; Z68.43 - Body mass index [BMI] 50.0-59.9, adult (2) Pain in joint involving multiple sites: Code(s): M25.50 - Pain in unspecified joint (3) Family history of systemic lupus erythematosus (SLE) in mother: Code(s): Z82.69 - Family history of other diseases of the musculoskeletal system and connective tissue (4) Pes planus of both feet: Code(s): M21.41 - Flat foot [pes planus] (acquired), right foot; M21.42 - Flat foot [pes planus] (acquired), left foot Plan #Joint Pain/Fml Hx of SLE: Clinically, at this time, the patient does not present as having a connective tissue disease or inflammatory process from a rheumatologic perspective. I think her joint pain may part caused by excessive weight and deconditioning. The patient is also living with some major health concerns. She has a prolactinoma that affects her hormone- hypothyroid from very young age, PCOS, takes control for hormone regulation, and may develop visual concerns. She did share that her mom has SLE. However, further evaluation with lab studies for Rheum panel was negative for autoimmune and inflammatory processes. IgA, IgM and IgG did not reflect hyperactivity in the immune system. The CRP was elevated and also mild elevation in AST/ALT. She denies ETOH, Tylenol and does not have medications that could cause. This may be due to obesity and fatty liver. She will followup with PCP on this. #Hypermobile: At this time I do not see hyperreflexia in the patient. She does have the ability to touch the floor with palms(see PE). I discussed with her that she can certainly follow-up with a specialist/Aba Therapist for ED genetic testing etc. She has not acted on this since last visit. I also recommend that if she feels like her joints are hypermobile then refrain from activities that will over stretch the joints. Physical therapy can be beneficial to teach best activities and joint management #Obesity/Pes Planus: Given her challenges with hormones, this makes it already hard to maintain a healthy weight. I encouraged patient to consider increased activity levels and nutrition changes that can help. Her joints will certainly benefit from weight reduction. She has very flat feet with a wide toebox- recommend supportive shoes and inserts to reduce the soreness to ankles and instep. #Mild Elevation liver enzymes will be discussed with PCP. I spent 25 minutes reviewing chart and diagnostics, discussing findings and future activities and documenting Follow-up as needed Coding Level of Care Code Est Pt Level 3 (55420) Diagnoses Morbid obesity with BMI of 50.0-59.9, adult E66.01; Z68.43 Pain in joint involving multiple sites M25.50 Family history of systemic lupus erythematosus (SLE) in mother Z82.69 Pes planus of both feet M21.41; M21.42
[2023-10-21 08:47] VITALS: BP 120/78; PULSE 90; O2SAT 98; BMI 51.6
== END 2023-10-21 08:58 | disposition home or self-care (01) ==
PROVIDERS: PCP Nurse Practitioner Family; Visit Provider Nurse Practitioner Family
DX: E66.01 Morbid (severe) obesity due to excess calories (principal); Z68.43 Body mass index [BMI] 50.0-59.9, adult; M25.50 Pain in unspecified joint; Z82.69 Family history of other diseases of the musculoskeletal system and connective tissue; M21.41 Flat foot [pes planus] (acquired), right foot; M21.42 Flat foot [pes planus] (acquired), left foot
CPT/HCPCS: 99213

== ENCOUNTER → 2023-10-21 08:20 | Outpatient (BNVA) | payer OTHER, SELFPAY | PROVIDERS: PCP Nurse Practitioner Family; Visit Provider Nurse Practitioner Family | DX: M25.50 Pain in unspecified joint (principal); M21.41 Flat foot [pes planus] (acquired), right foot; M21.42 Flat foot [pes planus] (acquired), left foot; E66.01 Morbid (severe) obesity due to excess calories; Z68.43 Body mass index [BMI] 50.0-59.9, adult; Z82.69 Family history of other diseases of the musculoskeletal system and connective tissue | CPT/HCPCS: 99212 ==

== ENCOUNTER 2023-10-27 08:46 | Outpatient (AMB) | payer OTHER, SELFPAY ==
--- NOTE | 2023-10-27 09:05 | A.OFFVIS_ITS ---
Intake VS Expanded 10/27/23 09:06 Height 5 ft Weight 264 lb 15.93 oz BMI 51.7 Intake Visit Reasons: Obesity\CONFIRMED Allergies cat dander [CATS] Allergy (Unknown, Verified 10/21/23 08:48) RASH, WHEEZING dog dander [DOGS] Allergy (Unknown, Verified 10/21/23 08:48) RASH, WHEEZING montelukast Adverse Reaction (Mild, Verified 10/21/23 08:48) Depression HPI Nutrition Presentation Details Pt presents for MNT f/u for Obesity Pt has allergic reaction to wheat and eggs with nausea/stomach pain, GI symptoms fries and chicken tenders ( gluten free /no eggs) water rice /chicken coocoa cosme or honey nut cheerios tuna fish with onions,spinach, gluten free crackers chips fruits/not including physical activity: walking a walk blocks ( Most Recent Diabetes Results: Creatinine 0.72 mg/dL (0.5-1.4) 09/24/23 Blood Urea Nitrogen 12 mg/dL (9-16) 09/24/23 Sodium 139 mmol/L (135-145) 09/24/23 Potassium 4.0 mmol/L (3.3-5.1) 09/24/23 Chloride 108 mmol/L (96-108) 09/24/23 Carbon Dioxide 24 mmol/L (22-29) 09/24/23 Calcium 9.5 mg/dL (8.4-10.2) 09/24/23 AST 36 U/L (5-31) H 09/24/23 ALT 47 U/L (0-31) H 09/24/23 Total Protein 8.1 g/dL (6.5-8.0) H 09/24/23 Albumin 4.1 g/dL (3.5-5.0) 09/24/23 [facility] Medical History Pes planus of both feet Family history of systemic lupus erythematosus (SLE) in mother Pain in joint involving multiple sites Obesity Chronic allergic rhinitis BUZZ (obstructive sleep apnea) Asthma Asthma Hypothyroidism Ocular hypertension Prolactinoma Cervical lymphadenopathy Vitamin D deficiency Andrews's disease Microprolactinoma Generalized headaches Anxiety Eczema PCOS (polycystic ovarian syndrome) Pituitary microadenoma with hyperprolactinemia Hypothyroid Asthma Surgical History No history of previous surgery Family History Paternal Grandmother Diabetes Father Asthma Mental health disorder Sister Asthma Mental health disorder Mother Mental health disorder Other Arthritis Social History Housing: House Alcohol intake: never Patient Tobacco Use Status: Never used Tobacco e-Cigarette/Vaping Use: Never Used Second Hand Smoke Exposure: No service: No Current occupational status: unemployed Sexual orientation: Straight/Heterosexual Gender identity: Female Cognitive needs: No Hearing needs: No Vision needs: No Female Reproductive History Menstrual Age of Menarche: 12 Review of Systems Aller/Immun Reports GI upset with certain foods (Wheat/Eggs : reports developing nausea, stomach pain) Assessment & Plan Assessment & Plan (1) Morbid obesity with BMI of 50.0-59.9, adult: Code(s): E66.01 - Morbid (severe) obesity due to excess calories; Z68.43 - Body mass index [BMI] 50.0-59.9, adult Plan: Pt has Increased intake of empty calorie foods, large portion sizes and lack of understanding of wheat/nut/dairy sources of foods which she reports developing GI symptoms(upset stomach, nausea) after consuming these. wt: 122 kg (121 kg -07/2023), 119kg (09/2023 Est kcal needs as per MSJ: 2300 (40% carb, 30% protein/fat) Est fluid needs as per 25-30 ml/d: 3050- 3660 Est prot per day as per 1 g/kg bw: 122 Recommend fiber intake : 8-10 g per day and gradually increase to 25-28 g per day for women and 35-38 g for men or as tolerated Recommend sodium intake per day : less than 2000 mg Educated patient on: ( R = reviewed V = verbalizes understanding N/R = needs review N/A = not applicable * practice mindful eating strategies, eating slowly, savoring food: R, * Food sources of carbohydrate, adequate serving sizes and its role in various health conditions: R * Differences between complex carbohydrates a simple carbohydrates, role of fiber in diet: R * Differences between types of fats and role in diet (mono on saturated fat fatty acids, saturated fatty acids, trans fats): R * Food sources of sodium in salt and healthy modifications for heart health in kidney health: NR * Vitamins and minerals: R * Healthy plate method concept: R * Physical activity: Benefits a precaution: R - contemplating walking routine * Hydration : R, V * Choosing naturally gluten free foods, when making meals at home or eating out or choosing frozen meals : R Patient Instructions: Continue working choosing wheat free/egg free food choices MAke a walking routine: Walk at least 3 times a week, start with 10 minutes and gradually increase to 30 minutes, goal 150 minutes per week Include 3 fruits a day replacing empty calories snacks choose low fat cooking methods (air fryer, baking, steaming) Work on making salads at home , at least twice/week Coding Level of Care Code Nutr Indiv Subseq (28001) Diagnoses Morbid obesity with BMI of 50.0-59.9, adult E66.01; Z68.43 Time Spent (min) 25
[2023-10-27 09:06] VITALS: BMI 51.7
== END 2023-10-27 09:35 | disposition home or self-care (01) ==
PROVIDERS: PCP Nurse Practitioner Family; Visit Provider Dietitian, Registered
DX: E66.01 Morbid (severe) obesity due to excess calories (principal); Z68.43 Body mass index [BMI] 50.0-59.9, adult

== ENCOUNTER → 2023-10-27 08:46 | Outpatient (BNVA) | payer OTHER, SELFPAY | PROVIDERS: PCP Nurse Practitioner Family; Visit Provider Dietitian, Registered | DX: E66.01 Morbid (severe) obesity due to excess calories (principal); Z68.43 Body mass index [BMI] 50.0-59.9, adult | CPT/HCPCS: 97803 ==

== ENCOUNTER 2023-11-12 10:32 | Outpatient (AMB) | payer OTHER, SELFPAY ==
[2023-11-12 10:38] VITALS: PULSE 74; O2SAT 98; BMI 50.8
--- NOTE | 2023-11-12 10:38 | A.OFFVIS_ITS ---
Vital Signs 11/12/23 10:38 Height 5 ft Weight 260 lb BMI 50.8 Pulse 74 Pulse Source Pulse Oximeter Pulse Oximetry (%) 98 Oxygen Delivery Method Room Air Intake Visit Reasons: astma Vacuum Cleaner Repair Person Required: No Allergies cat dander [CATS] Allergy (Unknown, Verified 11/12/23 10:39) RASH, WHEEZING dog dander [DOGS] Allergy (Unknown, Verified 11/12/23 10:39) RASH, WHEEZING montelukast Adverse Reaction (Mild, Verified 11/12/23 10:39) Depression HPI Comments Details: The patient is a 23 year woman with known lifelong history of asthma. She has been followed closely by Allergy and immunology. She has been on allergy shots and subsequently was taken off because her asthma to active and she was placed on Xolair. She does and give herself her own Xolair every 4 weeks. She is not sure about the dose. She typically does 2 injections. She also takes Advair and Spiriva. These medications have been helpful. She still needs her rescue inhaler either daily or every other day which is too much. She also gets short of breath with activity. The patient also complains of daytime drowsiness. She does have headaches in the morning. There was documented snoring. The patient does have an elevated [place] score of 14/24. She was supposed to have a sleep study but never followed through. At this point will go ahead and request a sleep study for her. 08/31/2022 the patient is here for a pulmonary follow-up visit. She continues to use her inhalers as prescribed. She has had to use her rescue inhaler more often. She continues with Xolair every 4 weeks. The patient did have blood work done her IgE levels noted to 429 and does have significant allergies noted. She is also wondering about food allergies. She is feeling like some of the foods that she is eating have been activating her asthma as well. Therefore she can have additional allergy testing for the foods that may be precipitating her symptoms as well meantime will go ahead and adjust her Xolair from every 4 weeks to every 2 weeks. Should need a maximum dose based on her weight and also the level of her IgE. She is going to continue with the Advair and the Spiriva. She may be a good candidate for triple therapy. When she is running out of medications she can always call we can send her Trelegy to the pharmacy. She did have a sleep study. No evidence of any significant sleep apnea this is reassuring. She knows not to sleep some worse on the right side where she had more hypopneas episodes. In addition to this the patient also had PFTs done demonstrating normal lung capacity which is reassuring. She did have an elevated DLCO above normal therefore exposure to exogenous her monoxide needs to be monitored. She does state that she does have some secondhand smoke exposure. 07/23/2023 the patient is here for a pulmonary follow-up visit. The patient overall has been doing fair. She has had worsening respiratory symptoms the last few months. Although is phenotype season for viruses in the cold air. She is has required prednisone. The patient has continued on the Xolair. The Xolair has been partially helpful. Seems to help her the eczema in her allergies but tends to not help the asthma as much. The patient has had blood work in the past demonstrating some degree of eosinophilia along with the elevated IgE. Therefore, I do believe that she will do better on Dupixent. She has already been on Xolair couple years with only partial response. In addition to that we did try putting her on Trelegy but it would not cover. Therefore, will go ahead and optimize respiratory therapy by increasing her Advair to the maximum dose and she can continue the Spiriva. I did give her information about Dupixent. She will let us know if she wants to start it. She will have to do blood work. Otherwise will talk about her when she returns in the springtime. 11/12/2023 the patient is here for pulmonary follow-up visit. Overall she is doing better. She is now on Dulera and Spiriva. She continues on the Xolair every 2 weeks. Seems to be helpful. In addition to that the eczema appears to be helpful in doing better overall. We did talk about Dupixent during the last time this point the patient feels comfortable with current regimen so therefore will hold off on Dupixent. She does carry her EpiPen. She has never had to use it which is reassuring. There was also question of sleep apnea. She did have a home sleep study back in August 2022 demonstrating no evidence of any significant sleep apnea. If the patient continues have daytime drowsiness or any concerns we can also consider repeating the study. The patient follow-up in 8-10 months. If she has any difficulties prior to that she will call for an earlier assessment. [facility] Medical History Pes planus of both feet Family history of systemic lupus erythematosus (SLE) in mother Pain in joint involving multiple sites Obesity Chronic allergic rhinitis BUZZ (obstructive sleep apnea) Asthma Asthma Hypothyroidism Ocular hypertension Prolactinoma Cervical lymphadenopathy Vitamin D deficiency Andrews's disease Microprolactinoma Generalized headaches Anxiety Eczema PCOS (polycystic ovarian syndrome) Pituitary microadenoma with hyperprolactinemia Hypothyroid Asthma Surgical History No history of previous surgery Family History Paternal Grandmother Diabetes Father Asthma Mental health disorder Sister Asthma Mental health disorder Mother Mental health disorder Other Arthritis Social History Housing: House Alcohol intake: never Patient Tobacco Use Status: Never used Tobacco e-Cigarette/Vaping Use: Never Used Second Hand Smoke Exposure: No service: No Current occupational status: unemployed Sexual orientation: Straight/Heterosexual Gender identity: Female Cognitive needs: No Hearing needs: No Vision needs: No Female Reproductive History Menstrual Age of Menarche: 12 Review of Systems Const Reports daytime sleepiness, Denies headache(s) and Reports snoring Eyes Denies change in vision ENT Denies change in voice, Denies headache(s), Reports nasal congestion and Reports nasal discharge Card Denies chest pain Resp Reports cough, Reports snoring and Reports wheezing GI Reports no additional complaints Musc Reports no additional complaints Skin/Breast Denies rash Neuro Reports no additional complaints and Denies headache(s) Endo Denies flushing Jose David/Lymph Denies easy bruising Aller/Immun Reports wheezing Physical Exam Vital Signs: Last Vital Signs Pulse 74 11/12/23 10:38 Pulse Ox 98 11/12/23 10:38 Oxygen Delivery Method Room Air 11/12/23 10:38 BMI result Body Mass Index 50.8 Const General: comfortable HEENT Head: Yes normocephalic Eyes General: appearance normal, both eyes and all related structures Neck Neck: Yes supple Chest Chest palpation & inspection: normal inspection of the chest Resp Effort & Inspection: normal respiratory effort and prolonged expiratory phase Auscultation: no wheezes and diminished lung sounds Cardio Rate: regular rate Rhythm: regular rhythm Heart sounds: S1 normal heart sound present and S2 normal heart sound present GI Auscultation: normal bowel sounds Skin General skin exam: no rashes or lesions noted Extrem General: Yes no clubbing, cyanosis or edema Assessment & Plan Assessment & Plan (1) Asthma: Code(s): J45.909 - Unspecified asthma, uncomplicated Category: Medical Qualifiers: Asthma complication type: uncomplicated Asthma persistence: persistent Asthma severity: severe Qualified Code(s): J45.50 - Severe persistent asthma, uncomplicated (2) Chronic allergic rhinitis: Code(s): J30.9 - Allergic rhinitis, unspecified Category: Medical (3) BUZZ (obstructive sleep apnea): Comment: No BUZZ on home PSG Code(s): G47.33 - Obstructive sleep apnea (adult) (pediatric) Category: Medical Plan continue Dulera continue Spiriva JENIFFER as needed anti histamine therapy Bloodwork continue Xolair 375mg Q2 weeks. Consider Dupixent. Info provided to the patient. She will call us if she wants to switch F/U 8-10 months Coding Level of Care Code Est Pt Level 4 (73249) Diagnoses Severe persistent asthma without complication J45.50 Asthma complication type: uncomplicated Asthma persistence: persistent Asthma severity: severe Chronic allergic rhinitis J30.9 BUZZ (obstructive sleep apnea) G47.33 Time Spent (min) 16
== END 2023-11-12 10:50 | disposition home or self-care (01) ==
PROVIDERS: PCP Nurse Practitioner Family; Visit Provider Hospitalist
DX: J45.50 Severe persistent asthma, uncomplicated (principal); J30.9 Allergic rhinitis, unspecified; G47.33 Obstructive sleep apnea (adult) (pediatric)
CPT/HCPCS: 99214

== ENCOUNTER → 2023-11-12 10:32 | Outpatient (BNVA) | payer OTHER, SELFPAY | PROVIDERS: PCP Nurse Practitioner Family; Visit Provider Hospitalist | DX: J45.50 Severe persistent asthma, uncomplicated (principal); J30.9 Allergic rhinitis, unspecified; G47.33 Obstructive sleep apnea (adult) (pediatric); Z79.899 Other long term (current) drug therapy | CPT/HCPCS: 99212 ==

== ENCOUNTER 2023-11-19 07:50 | Outpatient (AMB) | payer OTHER, SELFPAY ==
[2023-11-19 08:11] VITALS: BP 100/72; PULSE 84; BMI 50.5
--- NOTE | 2023-11-19 08:11 | A.OFFVIS_ITS ---
Vital Signs 11/19/23 08:11 Height 5 ft Weight 258 lb 13.163 oz BMI 50.5 BP 100/72 Blood Pressure Location Lt brachial Position Sitting Pulse 84 Pulse Source Pulse Oximeter Intake Visit Reasons: f/u after testing ETT and tilt table Copy Lathe Tender Required: No Show Jumping Instructor: Show Jumping Instructor Present Allergies cat dander [CATS] Allergy (Unknown, Verified 11/19/23 08:13) RASH, WHEEZING dog dander [DOGS] Allergy (Unknown, Verified 11/19/23 08:13) RASH, WHEEZING montelukast Adverse Reaction (Mild, Verified 11/19/23 08:13) Depression Medication List - Last Reconciled 11/19/23 by Umm Fowelr NP-C albuterol sulfate 90 mcg/actuation (ProAir HFA) 2 puffs inhalation Q6H PRN 30 days albuterol sulfate 2.5 mg (3 mL) inhalation Q6H PRN 30 days atomoxetine 25 mg PO QAM benzoyl peroxide 2.5% 1 appl topical DAILY betamethasone dipropionate 0.05% 1 appl topical DAILY PRN upkvvxlhqn-vtftrchyxbrbb-wmfz 50-325-40 mg tabs PO cholecalciferol (vitamin D3) 50 mcg PO DAILY desog-e.estradiol/e.estradiol 0.15-0.02 mgx21 /0.01 mg x 5 (Kariva (28)) 1 tab PO DAILY divalproex ER 250 mg PO DAILY epinephrine (EpiPen 2-Michael) 0.3 mg (0.3 mL) IM Q10M PRN 30 days fluticasone propionate 50 mcg/actuation 1 spray intranasal DAILY hydrocortisone 2.5% topical lamotrigine 25 mg PO BID levocetirizine 5 mg PO BID 90 days levothyroxine 112 mcg PO DAILY 30 days loratadine 10 mg PO DAILY meclizine 25 mg PO DAILY PRN 20 days metronidazole 0.75% 1 appl topical BID mometasone-formoterol 200-5 mcg/actuation (Dulera) 2 puffs inhalation Q12H 30 days nebulizers As directed omalizumab (Xolair) 300 mg (2 mL) subcut Q2W 30 days omalizumab (Xolair) 75 mg (0.5 mL) subcut Q2W tiotropium bromide 2.5 mcg/actuation (Spiriva Respimat) 2 puffs inhalation DAILY 30 days trazodone 150 mg PO BEDTIME PRN tretinoin 0.025% 1 appl topical DAILY 30 days venlafaxine 75 mg PO Q12H 90 days HPI HPI f/u after testing ETT and tilt table: Details: Karma is a 23-year-old female with past medical history of morbid obesity, asthma, anxiety who was recently evaluated for reports of chest tightness, lightheadedness and heart palpitation. He underwent an exercise stress test, echocardiogram and tilt-table test and now presents for follow-up. Today she reports that she still gets symptoms where she feels her chest is tight in the front and back. It does have associated shortness of breath which can be contributed to her asthma. Her symptoms happen periodically and are not brought on by physical activity. She says she wakes up in the morning and has some chest discomfort daily. That symptom can improve as the day goes on. She will notice lightheadedness at times especially if she tries to push herself physically. No full presyncope, syncope or falls. No PND, orthopnea or edema. Admits to being mostly sedentary. Father is present. [facility] Medical History Pes planus of both feet Family history of systemic lupus erythematosus (SLE) in mother Pain in joint involving multiple sites Obesity Chronic allergic rhinitis BUZZ (obstructive sleep apnea) Asthma Asthma Hypothyroidism Ocular hypertension Prolactinoma Cervical lymphadenopathy Vitamin D deficiency Andrews's disease Microprolactinoma Generalized headaches Anxiety Eczema PCOS (polycystic ovarian syndrome) Pituitary microadenoma with hyperprolactinemia Hypothyroid Asthma Surgical History No history of previous surgery Family History Paternal Grandmother Diabetes Father Asthma Mental health disorder Sister Asthma Mental health disorder Mother Mental health disorder Other Arthritis Social History Housing: House Alcohol intake: never Patient Tobacco Use Status: Never used Tobacco e-Cigarette/Vaping Use: Never Used Second Hand Smoke Exposure: No service: No Current occupational status: unemployed Sexual orientation: Straight/Heterosexual Gender identity: Female Cognitive needs: No Hearing needs: No Vision needs: No Female Reproductive History Menstrual Age of Menarche: 12 Review of Systems Const All systems reviewed & are unremarkable except as noted in HPI and below ENT Reports dizziness Card Denies chest pain, Denies chest pain at rest, Denies chest pain with activity, Denies rapid heart rate, Denies pedal edema, Denies edema, Denies leg edema, Denies lightheadedness, Denies palpitations, Denies dyspnea, Denies dyspnea on exertion and Denies orthopnea Resp Denies cough, Denies dyspnea and Denies dyspnea on exertion GI Denies hematochezia and Denies change in stool character Musc Denies abnormal gait, Denies limited range of motion, Denies muscle cramps, Denies muscle weakness, Denies numbness, Denies radiating pain into limb, Denies stiffness and Denies tingling Neuro Denies abnormal gait, Reports dizziness, Denies numbness and Denies tingling Endo Denies palpitations Physical Exam Vital Signs: Last Vital Signs Pulse 84 11/19/23 08:11 BP 100/72 11/19/23 08:11 BMI result Body Mass Index 50.5 Const General: cooperative, healthy appearing, comfortable and no acute distress Orientation/consciousness: patient oriented x3 Neck Neck: Yes normal visual inspection and Yes no JVD Resp Effort & Inspection: normal respiratory effort Auscultation: clear to auscultation bilaterally, no rales and no rhonchi Cardio Jugular venous distension: no JVD Rate: regular rate Rhythm: regular rhythm Heart sounds: S1 normal heart sound present, S2 normal heart sound present, no murmurs and no rubs Neuro General: patient oriented x3 Extrem General: Yes normal to inspection, No no pedal edema and No calf tenderness Psych Appearance: grossly normal Mental Status: mental status grossly normal Speech and movement: Normal speech and movement present Assessment & Plan Assessment & Plan (1) Chest discomfort: Code(s): R07.89 - Other chest pain Category: Medical Plan: Reports of atypical sounding chest discomfort and shortness of breath. No cardiac history. Cardiac risk factor of morbid obesity. Exercise stress test done 10/01/2023 with exercise 5 minutes, no anginal sounding chest discomfort, no EKG changes of ischemia. An echocardiogram was done 10/01/2023 showing EF 55- 60%, normal RV, normal valves. Test results reviewed with her in detail. Her symptoms could be related to asthma, deconditioning. Instructed on light physical activity and increase as tolerated. Weight loss would be beneficial as well. Signs and symptoms of true angina reviewed with her. Cardiology follow- up as needed. Emergency care if ever needed for symptoms. (2) Dizziness: Code(s): R42 - Dizziness and giddiness Category: Medical Plan: Reports of intermittent dizziness and elevated heart rates. She had concerns about POTS. Her echocardiogram shows normal EF. She did undergo a tilt-table test on 11/09/2023 showing appropriate blood pressure and heart rate response to tilt. Results reviewed with her and she states understanding. Her blood pressure does run on the low side which can contribute to her symptoms. Instructed on good hydration, add salt to diet to help raise blood pressure. Compression stocking use suggested. Offered reassurance that she does not have POTS. Instructed to call this office if her symptoms are persistent or worsening. Plan Time spent on chart review, documentation, interview and assessment Coding Level of Care Code Est Pt Level 3 (35323) Diagnoses Chest discomfort R07.89 Dizziness R42 Time Spent (min) 24
== END 2023-11-19 08:32 | disposition home or self-care (01) ==
PROVIDERS: PCP Nurse Practitioner Family; Visit Provider Nurse Practitioner Family
DX: R07.89 Other chest pain (principal); R42 Dizziness and giddiness
CPT/HCPCS: 99213

== ENCOUNTER → 2023-11-19 07:50 | Outpatient (BNVA) | payer OTHER, SELFPAY | PROVIDERS: PCP Nurse Practitioner Family; Visit Provider Nurse Practitioner Family | DX: R07.89 Other chest pain (principal); R42 Dizziness and giddiness | CPT/HCPCS: 99212 ==

== ENCOUNTER 2023-12-27 08:49 | Outpatient (AMB) | payer OTHER, SELFPAY ==
--- NOTE | 2023-12-27 09:02 | A.OFFVIS_ITS ---
VS Expanded 12/27/23 09:04 12/27/23 09:28 Height 5 ft 5 ft Weight 252 lb 3.341 oz 252 lb BMI 49.3 49.2 Intake Visit Reasons: Obesity/CONFIRMED Allergies cat dander [CATS] Allergy (Unknown, Verified 11/19/23 08:13) RASH, WHEEZING dog dander [DOGS] Allergy (Unknown, Verified 11/19/23 08:13) RASH, WHEEZING montelukast Adverse Reaction (Mild, Verified 11/19/23 08:13) Depression Nutrition Presentation Details: Pt presents for MNT f/u for obesity Pt reports avoiding wheat /egg/nuts 90 % of the time , challenges when eating out Pt reports working on having salads more frequently Tends to have 2 meals/day (rice/chicken or air fried foods) denies vomiting/diarrhea exercises: reports engaging in physical activity (walking, swimming) fruits: not including BS Monitoring Most Recent Diabetes Results: Creatinine 0.72 mg/dL (0.5-1.4) 09/24/23 Blood Urea Nitrogen 12 mg/dL (9-16) 09/24/23 Sodium 139 mmol/L (135-145) 09/24/23 Potassium 4.0 mmol/L (3.3-5.1) 09/24/23 Chloride 108 mmol/L (96-108) 09/24/23 Carbon Dioxide 24 mmol/L (22-29) 09/24/23 Calcium 9.5 mg/dL (8.4-10.2) 09/24/23 AST 36 U/L (5-31) H 09/24/23 ALT 47 U/L (0-31) H 09/24/23 Total Protein 8.1 g/dL (6.5-8.0) H 09/24/23 Albumin 4.1 g/dL (3.5-5.0) 09/24/23 EZW-Ylwntgz-Ra.Jeor Equation Height: 5 ft Weight: 252 lb Resting Metabolic Rate: 1815.33 Calculated Activity Level: Sedentary Calories Needed to Maintain Weight: 2178.40 [facility] Medical History Pes planus of both feet Family history of systemic lupus erythematosus (SLE) in mother Pain in joint involving multiple sites Obesity Chronic allergic rhinitis BUZZ (obstructive sleep apnea) Asthma Asthma Hypothyroidism Ocular hypertension Prolactinoma Cervical lymphadenopathy Vitamin D deficiency Andrews's disease Microprolactinoma Generalized headaches Anxiety Eczema PCOS (polycystic ovarian syndrome) Pituitary microadenoma with hyperprolactinemia Hypothyroid Asthma Surgical History No history of previous surgery Family History Paternal Grandmother Diabetes Father Asthma Mental health disorder Sister Asthma Mental health disorder Mother Mental health disorder Other Arthritis Social History Housing: House Alcohol intake: never Patient Tobacco Use Status: Never used Tobacco e-Cigarette/Vaping Use: Never Used Second Hand Smoke Exposure: No service: No Current occupational status: unemployed Sexual orientation: Straight/Heterosexual Gender identity: Female Cognitive needs: No Hearing needs: No Vision needs: No Female Reproductive History Menstrual Age of Menarche: 12 Assessment & Plan Assessment & Plan (1) Morbid obesity with BMI of 50.0-59.9, adult: Code(s): E66.01 - Morbid (severe) obesity due to excess calories; Z68.43 - Body mass index [BMI] 50.0-59.9, adult Category: Medical Plan: Pt has Increased intake of empty calorie foods, large portion sizes and lack of understanding of wheat/nut/dairy sources of foods which she reports developing GI symptoms(upset stomach, nausea) after consuming these. wt: 122 kg (121 kg -07/2023), 119kg (09/2023), 114.5 (12/2023) Est kcal needs as per MSJ: 2200 (40% carb, 30% protein/fat) Est fluid needs as per 25-30 ml/d: 3500 Est prot per day as per 1 g/kg bw: 115 Recommend fiber intake : 8-10 g per day and gradually increase to 25-28 g per day for women and 35-38 g for men or as tolerated Recommend sodium intake per day : less than 2000 mg Educated patient on: ( R = reviewed V = verbalizes understanding N/R = needs review N/A = not applicable * practice mindful eating strategies, eating slowly, savoring food: R, * Food sources of carbohydrate, adequate serving sizes and its role in various health conditions: R * Differences between complex carbohydrates a simple carbohydrates, role of fiber in diet: R * Differences between types of fats and role in diet (mono on saturated fat fatty acids, saturated fatty acids, trans fats): R * Food sources of sodium in salt and healthy modifications for heart health in kidney health: NR * include fruit as snack, reviewed portion sizes : R * Vitamins and minerals: R * Healthy plate method concept: R * Physical activity: Benefits a precaution: R - walking 15 minute routine * Hydration : R, V * Choosing naturally gluten free foods, when making meals at home or eating out or choosing frozen meals : R Patient Instructions: -Continue working practicing mindful eating - Have 2 fruit a day , have one in between meals twice a day Continue working on reducing fried foods/empty calorie foods and follow healthy plate method Coding Level of Care Code Nutr Indiv Subseq (39036) Diagnoses Morbid obesity with BMI of 50.0-59.9, adult E66.01; Z68.43 Time Spent (min) 30
[2023-12-27 09:04] VITALS: BMI 49.3
[2023-12-27 09:28] VITALS: BMI 49.2
== END 2023-12-27 09:26 | disposition home or self-care (01) ==
PROVIDERS: PCP Nurse Practitioner Family; Visit Provider Dietitian, Registered
DX: E66.01 Morbid (severe) obesity due to excess calories (principal); Z68.43 Body mass index [BMI] 50.0-59.9, adult

== ENCOUNTER → 2023-12-27 08:49 | Outpatient (BNVA) | payer OTHER, SELFPAY | PROVIDERS: PCP Nurse Practitioner Family; Visit Provider Dietitian, Registered | DX: E66.01 Morbid (severe) obesity due to excess calories (principal); Z68.43 Body mass index [BMI] 50.0-59.9, adult; Z71.3 Dietary counseling and surveillance | CPT/HCPCS: 97803 ==

== ENCOUNTER 2024-01-03 14:52 | Emergency (ER) | payer OTHER, SELFPAY ==
--- NOTE | ~2024-01-03 | XR_ITS ---
EXAMINATION: XR CHEST 2 VIEW CLINICAL INFORMATION: Cough, chest pain COMPARISON: 08/25/2022 TECHNIQUE: PA and lateral views of the chest obtained. FINDINGS: The lungs are clear. There are no pleural effusions. The cardiomediastinal silhouette is normal. XR/XR chest 2V IMPRESSION: No acute cardiopulmonary disease.
--- NOTE | 2024-01-03 14:53 | ECG_ITS ---
Test Reason : CP Blood Pressure : / mmHG Vent. Rate : 081 BPM Atrial Rate : 081 BPM P-R Int : 154 ms QRS Dur : 092 ms QT Int : 376 ms P-R-T Axes : 051 -03 020 degrees QTc Int : 436 ms Normal sinus rhythm Incomplete right bundle branch block Minimal voltage criteria for LVH, may be normal variant ( R in aVL ) Cannot rule out Anterior infarct , age undetermined Abnormal ECG When compared with ECG of 28-SEP-2016 11:56, No significant change was found Referred By: Generic ED Physician Electronically Signed By:IDA HERBERT
[2024-01-03 14:58] VITALS: BP 140/74; PULSE 88; RESP 16; TEMP 36.4; O2SAT 96; BMI 49.2
--- NOTE | 2024-01-03 15:10 | ED_ITS ---
HPI - Chest Pain General Chief Complaint: Chest Pain Stated Complaint: chest pain sob Time Seen by Provider: 01/03/24 21:08 Source: patient Mode of arrival: ambulatory Limitations: no limitations History of Present Illness ED Provider: DR. Draper HPI narrative: 23-year-old female otherwise healthy came in for evaluation of chest pain for a few months now, patient was sent by PCP to rule out pulmonary embolism specifically. Symptoms started few months ago as intermittent mid chest pain can be on right side of the chest or the left side of the chest, there is no clear aggravating or relieving factor, pain sometimes associated with shortness of breath, pain is worse by taking deep breath sometimes, no radiation to the pain. Patient declined any significant family history of blood clots or coronary artery disease at young age, no recent travel, no prolonged immobilization, no lower extremity swelling or tenderness. Patient currently is on contraceptive pills. No chest trauma or injury, no heavy lifting, no strenuous activity that the patient reported. Related Data Home Medications ?Medication ?Instructions ?Recorded ?Confirmed benzoyl peroxide 2.5 % topical 1 applic topical DAILY 04/10/20 11/19/23 cleanser betamethasone dipropionate 0.05 % 1 applic topical DAILY PRN 04/10/20 11/19/23 topical cream fluticasone propionate 50 1 spray intranasal DAILY 04/10/20 11/19/23 mcg/actuation nasal spray,suspension loratadine 10 mg tablet 10 mg PO DAILY 04/10/20 11/19/23 hydrocortisone 2.5 % topical topical 09/23/20 11/19/23 ointment metronidazole 0.75 % topical cream 1 appl topical BID 11/20/20 11/19/23 nebulizers 08/31/22 11/19/23 divalproex 250 mg tablet,extended 250 mg PO DAILY 04/09/23 11/19/23 release 24 hr lamotrigine 25 mg tablet 25 mg PO BID 07/23/23 11/19/23 akyrlhkura-heismwufchjym-ahqibabh tab PO 10/21/23 11/19/23 50 mg-325 mg-40 mg tablet atomoxetine 25 mg capsule 25 mg PO QAM 11/19/23 11/19/23 Previous Rx's ?Medication ?Instructions ?Recorded tretinoin 0.025 % topical cream 1 appl topical DAILY 30 days #45 10/26/22 grams tiotropium bromide 2.5 2 puff inhalation DAILY 30 days #1 02/02/23 mcg/actuation mist for inhalation ea (Spiriva Respimat) levothyroxine 112 mcg tablet 112 mcg PO DAILY 30 days #30 tabs 02/23/23 desogestrel-e.estradiol 0.15 1 tab PO DAILY #84 tabs 06/10/23 mg-0.02 mg(21)/e.estrad 0.01 mg(5) tablet (Kariva (28)) meclizine 25 mg tablet 25 mg PO DAILY PRN motion sickness 06/29/23 20 days #20 tabs albuterol sulfate 2.5 mg/3 mL 2.5 mg (3 mL) inhalation Q6H PRN 07/23/23 (0.083 %) solution for nebulization shortness of breath or wheezing 30 days #180 mL albuterol sulfate 90 mcg/actuation 2 puff inhalation Q6H PRN 07/23/23 aerosol inhaler (ProAir HFA) shortness of breath or wheezing 30 days #8.5 grams mometasone-formoterol HFA 200 2 puff inhalation Q12H 30 days #13 07/26/23 mcg-5 mcg/actuation aerosol grams inhaler (Dulera) epinephrine 0.3 mg/0.3 mL 0.3 mg (0.3 mL) IM Q10M PRN 09/13/23 injection, auto-injector (EpiPen anaphylaxis 30 days #2 ea 2-Michael) venlafaxine 75 mg tablet 75 mg PO Q12H 90 days #180 tabs 10/11/23 omalizumab 150 mg/mL subcutaneous 300 mg (2 mL) subcut Q2W 30 days 11/05/23 syringe (Xolair) #6 mL omalizumab 75 mg/0.5 mL 75 mg (0.5 mL) subcut Q2W #1 mL 11/05/23 subcutaneous syringe (Xolair) cholecalciferol (vitamin D3) 50 50 mcg PO DAILY #90 tabs 12/01/23 mcg (2,000 unit) tablet levocetirizine 5 mg tablet 5 mg PO BID 90 days #180 tabs 12/03/23 trazodone 150 mg tablet 150 mg PO BEDTIME PRN sleep #90 12/28/23 tabs Allergies Allergy/AdvReac Type Severity Reaction Status Date / Time cat dander [CATS] Allergy Unknown RASH, Verified 01/03/24 15:00 WHEEZING dog dander [DOGS] Allergy Unknown RASH, Verified 01/03/24 15:00 WHEEZING montelukast AdvReac Mild Depression Verified 01/03/24 15:00 Review of Systems 2 Review of Systems: All other systems are reviewed and are negative Constitutional: Reports as per HPI and Reports no additional constitutional complaints Eyes: Reports as per HPI and Reports no additional eye complaints Reports system reviewed and no additional complaints, except as documented Cardiovascular: Reports as per HPI and Reports no additional cardiovascular complaints Respiratory: Reports as per HPI and Reports no additional respiratory complaints Gastrointestinal: Reports as per HPI and Reports no additional gastrointestinal complaints Genitourinary: Reports no additional female genitourinary complaints Musculoskeletal: Reports no additional musculoskeletal complaints Skin/Breast: Reports system reviewed and no additional complaints, except as docu Psychiatric: Reports no additional psychiatric complaints Endocrine: Reports no additional endocrine complaints Hematologic/Lymphatic: Reports no additional hematologic/lymphatic complaints Allergic/Immunologic: Reports no additional allergic/immunologic complaints Reports system reviewed and no additional complaints, except as documented and Reports Abnormal speech present FORMERLY [facility], [facility] Past Medical History Medical History Pes planus of both feet Family history of systemic lupus erythematosus (SLE) in mother Pain in joint involving multiple sites Obesity Chronic allergic rhinitis BUZZ (obstructive sleep apnea) Asthma Asthma Hypothyroidism Ocular hypertension Prolactinoma Cervical lymphadenopathy Vitamin D deficiency Andrews's disease Microprolactinoma Generalized headaches Anxiety Eczema PCOS (polycystic ovarian syndrome) Pituitary microadenoma with hyperprolactinemia Hypothyroid Asthma Surgical History No history of previous surgery Family History Family History Paternal Grandmother Diabetes Father Asthma Mental health disorder Sister Asthma Mental health disorder Mother Mental health disorder Other Arthritis Social History Social History Housing: House Alcohol intake: never Patient Tobacco Use Status: Never used Tobacco e-Cigarette/Vaping Use: Never Used Second Hand Smoke Exposure: No Advance Directives: No Do you have a plan to hurt others: No Plan service: No Current occupational status: unemployed Sexual orientation: Straight/Heterosexual Gender identity: Female Cognitive needs: No Hearing needs: No Vision needs: No Physical Exam 2 Vital Signs: Vital Signs: Last Vital Signs Temp 98.4 F 01/03/24 21:10 Pulse 90 01/03/24 21:10 Resp 16 01/03/24 21:10 BP 127/65 01/03/24 21:10 Pulse Ox 98 01/03/24 21:10 O2 Del Method Room Air 01/03/24 21:10 BMI result Body Mass Index 49.2 Vital signs have been reviewed and appear to be correct. Blood pressure elevated. Heart rate normal. Respiratory rate normal. Temperature normal. Oxygen saturation normal. Appearance: Alert. Oriented X3. No acute distress. Head: Normal external exam. Normocephalic. Atraumatic. No Schwartz signs noted. No raccoon eyes noted Eyes: PERRLA. EOMI. Conjunctiva and sclera normal. Eyelids normal. ENT: TM's Normal. Pharynx normal. Uvula midline. Moist mucous membranes. No trismus noted. No drooling noted. No muffled voice noted. Neck: Normal inspection. Neck supple. FROM. No adenopathy. Thyroid Normal. No meningeal signs. No neck mass noted. CVS: Normal heart rate and rhythm. Heart sound normal. No murmurs noted. Pulses normal throughout. Respiratory: No respiratory distress. Painless inspiration. Breath sounds normal. No wheezes/rales/rhonchi noted. Chest nontender. No accessory muscle usage noted or decreased air movement noted. Abdomen: Soft and nontender. Bowel sounds normal in all 4 quadrants. No distention noted. No organomegaly noted. No visible injury noted. Back: No CVA tenderness. Full range of motion noted. Skin: Skin warm and dry. Normal skin color. Normal skin turgor. No rashes/lesions/lacerations noted. Extremities: No lower extremity edema. Extremities exhibit normal range of motion. Extremities nontender. Neuro: Oriented X 3. Cranial nerve exam: II-XII are grossly intact No motor deficit. No sensory deficit. Reflexes normal. Course Course Course Narrative: RME performed by Cinthya Moore PA-C. Patient is a 23 year old assigned female at presenting to the emergency department with chest pain. Patient states she follows with cardiology and has a history of a RBB. Patient states that she has also been tested for POTS. Detailed physical exam and review of systems are deferred to the engineering faculty member. EKG, labs, imaging, and swabs ordered. Patient placed back in the waiting room pending room availability and results. Reevaluation(s) Reevaluation #1: 43-year-old female with few months of chest pain patient on contraceptive pills, no other risk for pulmonary embolism, negative D-dimer, stable VS with out tachycardia or tachypnea or hypoxia, no lower extremity swelling or tenderness pulmonary embolism is not favorable diagnosis at this point. EKG is showing no change from previous, has a negative to troponin. Physical exam revealed mild reproducible chest wall tenderness. Time: 22:00 Medical Decision Making Differential Diagnosis Differential Diagnoses: The differential diagnosis associated with the presentation includes (ACS, pulmonary embolism, pneumonia, pneumothorax, pleural effusion, chest wall pain, costochondritis, electrolyte derangement, severe anemia, UTI, .) Admission/Observation Consideration of admission/observation: Escalation of care including admission/observation considered Lab Data MDM Lab Attestation statement: I reviewed the patient's lab results. 01/03/24 15:27 01/03/24 15:27 Labs: Lab Results 01/03/24 01/03/24 01/03/24 Range/Units 15:27 20:04 20:50 WBC 8.1 (4.8-10.8) X10*3/uL RBC 5.15 (4.20-5.50) X10*6/uL Hgb 14.3 (12.0-16.0) g/dl Hct 43.4 (37.0-47.0) % MCV 84.3 (80.0-98.0) fL MCH 27.8 (27.0-33.0) pg MCHC 32.9 (31.0-35.0) g/dl RDW 13.2 (11.0-16.0) % Plt Count 358 (160-400) X10*3/uL MPV 8.7 L (9.4-12.3) fL Immature Gran % (Auto) 0.2 (0.0-0.4) % Neut % (Auto) 61.4 (45-73) % Lymph % (Auto) 28.5 (20-40) % Grady % (Auto) 7.7 (2-11) % Eos % (Auto) 2.0 (0-4) % Baso % (Auto) 0.2 (0-2) % Lymph # (Auto) 2.3 (1.2-4.9) X10*3/uL Grady # (Auto) 0.6 (0.1-1.2) X10*3/uL Eos # (Auto) 0.2 (0.0-0.4) X10*3/uL Baso # (Auto) 0.0 (0.0-0.2) X10*3/uL Abs Immat Gran (auto) 0.02 (0.00-0.03) X10*3/uL Absolute Neuts (auto) 5.0 (2.0-8.3) x10*3/uL Absolute Nucleated RBC 0.000 (0.0-0.012) X10*3/uL Nucleated RBC % (auto) 0.0 (0.0-0.2) /100WBC Sodium 139 (135-145) mmol/L Potassium 3.9 (3.3-5.1) mmol/L Chloride 107 (96-108) mmol/L Carbon Dioxide 24 (22-29) mmol/L Anion Gap 12 (12-20) BUN 10 (9-16) mg/dL Creatinine 0.67 (0.5-1.4) mg/dL Estim Creat Clear Calc 149.2 Estimated GFR > 60 Random Glucose 109 (60-115) mg/dL Calcium 9.3 (8.4-10.2) mg/dL Total Bilirubin 0.2 (0.0-1.0) mg/dL AST 28 (5-31) U/L ALT 49 H (0-31) U/L Alkaline Phosphatase 70 (39-117) U/L Troponin I High Sens < 2.7 < 2.7 (<3.5-17.0) ng/L Total Protein 7.6 (6.5-8.0) g/dL Albumin 4.1 (3.5-5.0) g/dL Beta HCG, Quant < 2 mIU/mL Urine Color Yellow Urine Appearance Clear Urine pH 7.5 (5.0-9.0) Ur Specific [place] 1.020 (1.005-1.025) Urine Protein Negative (Neg-Trace) mg/dL Urine Glucose (UA) Negative (Negative) mg/dL Urine Ketones Negative (Negative) mg/dL Urine Blood Large (3+) H (Negative) Urine Nitrite Negative (Negative) Ur Leukocyte Esterase Trace H (Negative) Urine RBC >20 H (0-2) /HPF Urine WBC 0-5 (0-5) /HPF Ur Squamous Epith Cells 3-5 (0-2) /HPF Urine Bacteria None Seen (None Seen) Hyaline Casts 0-2 (0-2) /LPF Influenza Type A (PCR) NEGATIVE (Negative) Influenza Type B (PCR) NEGATIVE (Negative) RSV RNA Qual (PCR) NEGATIVE (Negative) SARS-CoV-2 RNA (RT-PCR) NEGATIVE (Negative) Independent Interpretation I performed an independent interpretation of an: EKG (Normal sinus rhythm, incomplete right bundle branch block, no change from previous EKG.) and Plain X- Ray (Chest: No acute cardiopulmonary disease.) Radiology Impression Discussion of test interpretation with radiology: I have reviewed the radiologist's reading. Discharge Plan Discharge Clinical Impression: Atypical chest pain Patient Disposition: Home, Self-Care Instructions: Chest Wall Pain (ED) Prescriptions: No Action tretinoin 0.025 % cream 1 appl topical DAILY 30 Days Qty: 45 0RF Spiriva Respimat 2.5 mcg/actuation mist 2 puff inhalation DAILY 30 Days Qty: 1 11RF levothyroxine 112 mcg tablet 112 mcg PO DAILY 30 Days Qty: 30 11RF desog-e.estradiol/e.estradiol [Kariva (28)] 0.15-0.02 mgx21 /0.01 mg x 5 tablet 1 tab PO DAILY Qty: 84 2RF Dulera 200-5 mcg/actuation HFA aerosol inhaler 2 puff inhalation Q12H 30 Days Qty: 13 11RF epinephrine [EpiPen 2-Michael] 0.3 mg/0.3 mL auto-injector 0.3 mg IM Q10M PRN (Reason: anaphylaxis) 30 Days Qty: 2 6RF Rx Instructions: for 2 doses venlafaxine 75 mg tablet 75 mg PO Q12H 90 Days Qty: 180 1RF Xolair 150 mg/mL syringe 300 mg subcut Q2W 30 Days Qty: 6 12RF Rx Instructions: inject a total of 375mg SQ every 2 weeks Xolair 75 mg/0.5 mL syringe 75 mg subcut Q2W Qty: 1 12RF cholecalciferol (vitamin D3) 50 mcg (2,000 unit) tablet 50 mcg PO DAILY Qty: 90 1RF levocetirizine 5 mg tablet 5 mg PO BID 90 Days Qty: 180 0RF trazodone 150 mg tablet 150 mg PO BEDTIME PRN (Reason: sleep) Qty: 90 0RF metronidazole 0.75 % cream 1 appl topical BID meclizine 25 mg tablet 25 mg PO DAILY PRN (Reason: motion sickness) 20 Days Qty: 20 0RF lamotrigine 25 mg tablet 25 mg PO BID divalproex 250 mg tablet extended release 24 hr 250 mg PO DAILY hydrocortisone 2.5 % ointment topical loratadine 10 mg tablet 10 mg PO DAILY fluticasone propionate 50 mcg/actuation spray,suspension 1 spray intranasal DAILY Rx Instructions: administer into each nostril betamethasone dipropionate 0.05 % cream 1 applic topical DAILY PRN benzoyl peroxide 2.5 % cleanser 1 applic topical DAILY (DME) nebulizers [facility] See Rx Instructions .Route Rx Instructions: As directed albuterol sulfate [ProAir HFA] 90 mcg/actuation HFA aerosol inhaler 2 puff inhalation Q6H PRN (Reason: shortness of breath or wheezing) 30 Days Qty: 8.5 11RF albuterol sulfate 2.5 mg /3 mL (0.083 %) solution for nebulization 2.5 mg inhalation Q6H PRN (Reason: shortness of breath or wheezing) 30 Days Qty: 180 11RF atomoxetine 25 mg capsule 25 mg PO QAM zmowtqhcvc-tblvzchyurzad-pdnd 50-325-40 mg tablet PO Referrals: [place], [employer] [facility] [Primary Care Provider] - Print Language: Romanian
[2024-01-03 15:32] LABS: MANUAL DIFF FLAG NO
[2024-01-03 15:34] LABS: Basophils Percent Auto 0.2 % (0-2); Eosinophils Absolute Auto 0.2 X10*3/uL (0.0-0.4); Hematocrit 43.4 % (37.0-47.0); Hemoglobin 14.3 g/dl (12.0-16.0); Imm Gran Abs Auto 0.02 X10*3/uL (0.00-0.03); Imm Gran Pct Auto 0.2 % (0.0-0.4); Lymphocytes Absolute Auto 2.3 X10*3/uL (1.2-4.9); Lymphocytes Percent Auto 28.5 % (20-40); Mean Corpuscular HGB Conc 32.9 g/dl (31.0-35.0); Mean Corpuscular Hemoglobin 27.8 pg (27.0-33.0); Mean Corpuscular Volume 84.3 fL (80.0-98.0); Mean Platelet Volume 8.7 fL (9.4-12.3); Monocytes Absolute Auto 0.6 X10*3/uL (0.1-1.2); Monocytes Percent Auto 7.7 % (2-11); Neutrophils Percent Auto 61.4 % (45-73); Platelet Count 358 X10*3/uL (160-400); Red Blood Count 5.15 X10*6/uL (4.20-5.50); Red Cell Distribution Width 13.2 % (11.0-16.0); White Blood Count 8.1 X10*3/uL (4.8-10.8)
[2024-01-03 15:49] LABS: Alanine Aminotransferase 49 U/L (0-31); Albumin Level 4.1 g/dL (3.5-5.0); Alkaline Phosphatase 70 U/L (39-117); Anion Gap 12 (12-20); Aspartate Amino Transferase 28 U/L (5-31); Bilirubin Total 0.2 mg/dL (0.0-1.0); Blood Urea Nitrogen 10 mg/dL (9-16); Calcium 9.3 mg/dL (8.4-10.2); Carbon Dioxide 24 mmol/L (22-29); Chloride 107 mmol/L (96-108); Creatinine Clr Calc Pharmacy 149.2; Estimated Glomerular Filt Rate > 60; Glucose Random 109 mg/dL (60-115); Potassium 3.9 mmol/L (3.3-5.1); Sodium 139 mmol/L (135-145); Total Protein 7.6 g/dL (6.5-8.0)
[2024-01-03 15:56] LABS: HCG Quantitative < 2 mIU/mL; Troponin-I High Sensitivity < 2.7 ng/L (<3.5-17.0)
[2024-01-03 16:15] LABS: Influenza A PCR NEGATIVE (Negative); Influenza B PCR NEGATIVE (Negative); Resp Syncy Virus RNA Qual PCR NEGATIVE (Negative); SARS COV2 PCR INHOUSE NEGATIVE (Negative)
[2024-01-03 18:04] VITALS: BP 128/74; PULSE 94; RESP 16; TEMP 36.7; O2SAT 98
[2024-01-03 20:45] LABS: Troponin-I High Sensitivity < 2.7 ng/L (<3.5-17.0)
[2024-01-03 20:58] LABS: Appearance Urine Clear; Color Urine Yellow; Glucose Urine UA Negative (Negative); Leukocyte Esterase Urine Trace (Negative); Nitrite Urine Negative (Negative); PH 7.5 (5.0-9.0); UMIC TRIGGER UACC YES; Urine Blood Large (3+) (Negative); Urine Ketones Negative (Negative); Urine Protein Negative (Neg-Trace)
[2024-01-03 21:03] LABS: Bacteria Urine None Seen (None Seen); Hyaline Casts Urine 0-2 /LPF (0-2); RBC Urine >20 /HPF (0-2); WBC Urine 0-5 /HPF (0-5)
[2024-01-03 21:10] VITALS: BP 127/65; PULSE 90; RESP 16; TEMP 36.9; O2SAT 98
[2024-01-03 21:54] LABS: D Dimer High Sensitivity < 150 NG/ML
[2024-01-03 21:57] VITALS: BP 125/57; PULSE 83; RESP 14; TEMP 36.7; O2SAT 96
[2024-01-03 22:01] VITALS: BP 125/57; PULSE 83; RESP 14; TEMP 36.7; O2SAT 96
== END 2024-01-03 22:01 | disposition home or self-care (01) ==
PROVIDERS: Physician Assistant Medical; Emergency Provider Emergency Medicine; PCP Nurse Practitioner Family
DX: R07.89 Other chest pain (principal); R06.02 Shortness of breath; Z79.899 Other long term (current) drug therapy; Z03.818 Encounter for observation for suspected exposure to other biological agents ruled out
CPT/HCPCS: 0241U; 36415; 71046; 80053; 81001; 81003; 84484; 84702; 85025; 85379; 93005; 99283; 99284

== ENCOUNTER → 2024-01-03 14:53 | Outpatient (BNV) | payer OTHER, SELFPAY | PROVIDERS: PCP Nurse Practitioner Family; Visit Provider Internal Medicine | DX: R94.31 Abnormal electrocardiogram [ECG] [EKG] (principal) | CPT/HCPCS: 93010 ==

== ENCOUNTER → 2024-02-21 09:01 | Outpatient (BNVA) | payer OTHER, SELFPAY | PROVIDERS: PCP Nurse Practitioner Family; Visit Provider Advanced Practice Midwife | DX: Z01.419 Encounter for gynecological examination (general) (routine) without abnormal findings (principal); E66.01 Morbid (severe) obesity due to excess calories; E28.2 Polycystic ovarian syndrome; D35.2 Benign neoplasm of pituitary gland; E22.9 Hyperfunction of pituitary gland, unspecified; Z68.43 Body mass index [BMI] 50.0-59.9, adult | CPT/HCPCS: 99395 ==

== ENCOUNTER 2024-02-24 09:17 | Outpatient (AMB) | payer OTHER, SELFPAY ==
[2024-02-24 09:34] VITALS: BMI 49.3
--- NOTE | 2024-02-24 09:34 | A.OFFVIS_ITS ---
VS Expanded 02/24/24 09:34 Height 5 ft Weight 252 lb 3.341 oz BMI 49.3 Intake Visit Reasons: OBESITY, food allergy/CONFIRMED Allergies cat dander [CATS] Allergy (Unknown, Verified 02/21/24 09:23) RASH, WHEEZING dog dander [DOGS] Allergy (Unknown, Verified 02/21/24 09:23) RASH, WHEEZING egg Allergy (Unknown, Verified 02/24/24 10:02) Itching wheat Allergy (Unknown, Verified 02/24/24 10:02) Gastrointestinal Upset montelukast Adverse Reaction (Mild, Verified 02/21/24 09:23) Depression milk Adverse Reaction (Unknown, Verified 02/24/24 10:02) Gastrointestinal Upset Nutrition Presentation Details: Pt presents for MNT f/u for obesity Pt reports having intolerance to wheat - develops stomach pain dairy- develops stomach pain eggs- itchy throat , red cheeks Reports working on increasing water 40-80 oz /day Working on including fruits/salads as part of meal Has episodes of choosing fast foods (foods she is intolerant to ) due to lack of planning denies vomiting/diarrhea physical activity: has stopped going for walks BS Monitoring Most Recent Diabetes Results: Creatinine 0.67 mg/dL (0.5-1.4) 01/03/24 Blood Urea Nitrogen 10 mg/dL (9-16) 01/03/24 Sodium 139 mmol/L (135-145) 01/03/24 Potassium 3.9 mmol/L (3.3-5.1) 01/03/24 Chloride 107 mmol/L (96-108) 01/03/24 Carbon Dioxide 24 mmol/L (22-29) 01/03/24 Calcium 9.3 mg/dL (8.4-10.2) 01/03/24 AST 28 U/L (5-31) 01/03/24 ALT 49 U/L (0-31) H 01/03/24 Total Protein 7.6 g/dL (6.5-8.0) 01/03/24 Albumin 4.1 g/dL (3.5-5.0) 01/03/24 [facility] Medical History Pes planus of both feet Family history of systemic lupus erythematosus (SLE) in mother Pain in joint involving multiple sites Obesity Chronic allergic rhinitis BUZZ (obstructive sleep apnea) Asthma Asthma Hypothyroidism Ocular hypertension Prolactinoma Cervical lymphadenopathy Vitamin D deficiency Andrews's disease Microprolactinoma Generalized headaches Anxiety Eczema PCOS (polycystic ovarian syndrome) Pituitary microadenoma with hyperprolactinemia Hypothyroid Asthma Surgical History No history of previous surgery Family History Paternal Grandmother Diabetes Father Asthma Mental health disorder Sister Asthma Mental health disorder Mother Mental health disorder Other Arthritis Social History Housing: House Alcohol intake: never Patient Tobacco Use Status: Never used Tobacco e-Cigarette/Vaping Use: Never Used Second Hand Smoke Exposure: No service: No Current occupational status: unemployed Sexual orientation: Straight/Heterosexual Gender identity: Female Cognitive needs: No Hearing needs: No Vision needs: No Female Reproductive History Menstrual Age of Menarche: 12 Assessment & Plan Assessment & Plan (1) Morbid obesity with BMI of 45.0-49.9, adult: Comment: BMI on 04/2023 at 52.3 working on diet modifications , bmi on 02/2024 at 49.3) Code(s): E66.01 - Morbid (severe) obesity due to excess calories; Z68.42 - Body mass index [BMI] 45.0-49.9, adult Category: Medical Plan: wt: 122 kg (121 kg -07/2023), 119kg (09/2023), 114.5 (12/2023), 114 kg (02/2024) Est kcal needs as per MSJ: 2200 (40% carb, 30% protein/fat) Est fluid needs as per 25-30 ml/d: 3500 Est prot per day as per 1 g/kg bw: 115 Recommend fiber intake : 8-10 g per day and gradually increase to 25-28 g per day for women and 35-38 g for men or as tolerated Recommend sodium intake per day : less than 2000 mg Educated patient on: ( R = reviewed V = verbalizes understanding N/R = needs review N/A = not applicable * practice mindful eating strategies, eating slowly, savoring food: R, * Food sources of carbohydrate, adequate serving sizes and its role in various health conditions: R * Differences between complex carbohydrates a simple carbohydrates, role of fiber in diet: R * Differences between types of fats and role in diet (mono on saturated fat fatty acids, saturated fatty acids, trans fats): R * Food sources of sodium in salt and healthy modifications for heart health in kidney health: NR * include fruit as snack, reviewed portion sizes : R * Vitamins and minerals: R * Healthy plate method concept: R * Physical activity: Benefits a precaution: R - * Hydration : R, V * Choosing naturally wheat free foods, when making meals at home or eating out or choosing frozen meals : R Patient Instructions: Engage in physical activity (walk, dance, march in place) aim at 10 minutes daily and gradually increase to 30 minutes , making it a routine Coding Level of Care Code Nutr Indiv Subseq (19004) Diagnoses Morbid obesity with BMI of 45.0-49.9, adult E66.01; Z68.42 Time Spent (min) 30
== END 2024-02-24 09:54 | disposition home or self-care (01) ==
PROVIDERS: PCP Nurse Practitioner Family; Visit Provider Dietitian, Registered
DX: E66.01 Morbid (severe) obesity due to excess calories (principal); Z68.42 Body mass index [BMI] 45.0-49.9, adult

== ENCOUNTER → 2024-02-24 09:17 | Outpatient (BNVA) | payer OTHER, SELFPAY | PROVIDERS: PCP Nurse Practitioner Family; Visit Provider Dietitian, Registered | DX: E66.01 Morbid (severe) obesity due to excess calories (principal); Z71.3 Dietary counseling and surveillance; Z68.42 Body mass index [BMI] 45.0-49.9, adult | CPT/HCPCS: 97803 ==

== ENCOUNTER 2024-03-01 08:02 | Outpatient (AMB) | payer OTHER, SELFPAY ==
[2024-03-01 08:07] VITALS: BP 110/78; PULSE 88; O2SAT 99; BMI 48.6
--- NOTE | 2024-03-01 08:07 | MHC.PC.OV ---
Vital Signs 03/01/24 08:07 Height 5 ft Weight 249 lb BMI 48.6 BP 110/78 Blood Pressure Location Lt brachial Position Sitting Pulse 88 Pulse Source Pulse Oximeter Pulse Oximetry (%) 99 Oxygen Delivery Method Room Air Intake Visit Reasons: Annual PE Intake Note: Pt is here today for her PE Allergies cat dander [CATS] Allergy (Unknown, Verified 03/01/24 08:11) RASH, WHEEZING dog dander [DOGS] Allergy (Unknown, Verified 03/01/24 08:11) RASH, WHEEZING egg Allergy (Unknown, Verified 03/01/24 08:11) Itching wheat Allergy (Unknown, Verified 03/01/24 08:11) Gastrointestinal Upset montelukast Adverse Reaction (Mild, Verified 03/01/24 08:11) Depression milk Adverse Reaction (Unknown, Verified 03/01/24 08:11) Gastrointestinal Upset Medication List - Last Reconciled 03/01/24 by Rasta Sun, [facility]- albuterol sulfate 90 mcg/actuation (ProAir HFA) 2 puffs inhalation Q6H PRN 30 days albuterol sulfate 2.5 mg (3 mL) inhalation Q6H PRN 30 days atomoxetine 25 mg PO QAM benzoyl peroxide 2.5% 1 appl topical DAILY toibpruild-fenoreqhakrja-ovoe 50-325-40 mg tabs PO cholecalciferol (vitamin D3) 50 mcg PO DAILY desog-e.estradiol/e.estradiol 0.15-0.02 mgx21 /0.01 mg x 5 (Kariva (28)) 1 tab PO DAILY divalproex ER 250 mg PO DAILY epinephrine (EpiPen 2-Michael) 0.3 mg (0.3 mL) IM Q10M PRN 30 days fluticasone propionate 50 mcg/actuation 1 spray intranasal DAILY hydrocortisone 2.5% topical lamotrigine 25 mg PO BID levocetirizine 5 mg PO BID 90 days levothyroxine 112 mcg PO DAILY 30 days meclizine 25 mg PO DAILY PRN 20 days metronidazole 0.75% 1 appl topical BID mometasone-formoterol 200-5 mcg/actuation (Dulera) 2 puffs inhalation Q12H 30 days nebulizers As directed omalizumab (Xolair) 300 mg (2 mL) subcut Q2W 30 days omalizumab (Xolair) 75 mg (0.5 mL) subcut Q2W tiotropium bromide 2.5 mcg/actuation (Spiriva Respimat) 2 puffs inhalation DAILY 30 days tretinoin 0.025% 1 appl topical DAILY 30 days venlafaxine 75 mg PO Q12H 90 days Tobacco use date assessed: 03/01/24 Dental Screening Dental Screen Date: 03/01/24 Did you have a dental visit in the last 12 months?: No Did you have a dental problem in the last 6 months where you did not have access to dental care?: No Was dental information given to patient?: Patient declined HPI Annual PE HPI Details Pt is here for a PE. Will order labs. 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 Pt is following up with neurology, psychiatry, and ophthalmology. Encouraged pt to continue seeing specialists. Pt was seeing endo previously due to PCOS but would like a different provider. Will refer to [facility]. Pt also has a hx of Carlitos-Danlos syndrome. She also has a family hx of SLE. Will refer to rheumatology. [facility] Medical History Pes planus of both feet Family history of systemic lupus erythematosus (SLE) in mother Pain in joint involving multiple sites Obesity Chronic allergic rhinitis BUZZ (obstructive sleep apnea) Asthma Asthma Hypothyroidism Ocular hypertension Prolactinoma Cervical lymphadenopathy Vitamin D deficiency Andrews's disease Microprolactinoma Generalized headaches Anxiety Eczema PCOS (polycystic ovarian syndrome) Pituitary microadenoma with hyperprolactinemia Hypothyroid Asthma Surgical History No history of previous surgery Family History Paternal Grandmother Diabetes Father Asthma Mental health disorder Sister Asthma Mental health disorder Mother Mental health disorder Other Arthritis Social History Housing: House Alcohol intake: never Patient Tobacco Use Status: Never used Tobacco e-Cigarette/Vaping Use: Never Used Second Hand Smoke Exposure: No service: No Current occupational status: unemployed Sexual orientation: Straight/Heterosexual Gender identity: Female Cognitive needs: No Hearing needs: No Vision needs: Yes Female Reproductive History Menstrual Age of Menarche: 12 Questionnaire PHQ-9 Over the last 2 weeks, how often have you been bothered by any of the following problems? 1. Little interest or pleasure in doing things: several days 2. Feeling down, depressed, or hopeless: several days 3. Trouble falling or staying asleep, or sleeping too much: nearly every day 4. Feeling tired or having little energy: several days 5. Poor appetite or overeating: several days 6. Feeling bad about yourself - or that you are a failure or have let yourself or your family down: several days 7. Trouble concentrating on things, such as reading the newspaper or watching television: nearly every day 8. Moving or speaking so slowly that other people could have noticed. Or the opposite - being so fidgety or restless that you have been moving around a lot more than usual: nearly every day 9. Thoughts that you would be better off or of hurting yourself in some way: not at all Total score: 14 Depression Screening Interpretation: Positive (has a psychiatrist and therapist, denies any si or hi) Depression Screening Follow-up: Existing condition and In treatment Depression Screening Done: Yes Source: Developed by Drs. Kj Morrow, Mary Jo Zhao, Christopher Feliciano and colleagues, with an educational heike from [employer]. Thrive Questionnaire Date Thrive assessed: 03/01/24 I am a: Patient What is your living situation today?: I have a place to live, but I am worried about losing it in the future Within the past 12 months, did the food you bought not last and you didn't have the money to get more?: Sometimes True Within the past 12 months, did you worry whether your food would run out before you got money to buy more?: Sometimes True Do you have trouble paying for medicines?: No Do you have trouble getting transportation to medical appointments?: No Do you have trouble paying your heating and electricity bill?: No Do you have trouble taking care of your child, family member or friend?: No Do you have trouble with day-to-day activities such as bathing, preparing meals, shopping, managing finances, etc.?: Yes Are you currently unemployed and looking for a job?: No Are you interested in more education?: No Please select the resources that you would like help with: None Currently or been in a relationship where the following occur: I choose not to answer THRIVE Score: 3 AUDIT C Alcohol Use Questionnaire (AUDIT-C) 1. How often do you have a drink containing alcohol?: Never Total Score: 0 LILIANE-7 AMB Questionnaire LILIANE-7 Date LILIANE - 7 assessed: 03/01/24 Feeling nervous, anxious, or on edge: 3 = Nearly every day Not being able to stop or control worryin = Nearly every day Worrying too much about different things: 3 = Nearly every day Trouble relaxin = Nearly every day Being so restless that it is hard to sit still: 3 = Nearly every day Becoming easily annoyed or irritable: 3 = Nearly every day Feeling afraid as if something awful might happen: 3 = Nearly every day Total LILIANE-7 score (0-4 normal; 5-9 mild; 10-14 moderate; 15-21 severe): 21 Source: Developed by Drs. Kj Morrow, Mary Jo Zhao, Christopher Feliciano and colleagues, with an educational heike from [employer]. LILIANE-7 Assessment Billing LILIANE-7 Assessment Tool: LILIANE-7 Assessment 93532 Review of Systems Const Denies chills and Denies fever(s) Eyes Denies blurry vision ENT Denies vertigo, Denies dizziness and Denies sore throat Card Denies chest pain at rest, Denies chest pain with activity, Denies diaphoresis, Denies dyspnea and Denies dyspnea on exertion Resp Denies cough, Denies dyspnea, Denies dyspnea on exertion and Denies wheezing GI Denies abdominal pain, Denies melena, Denies hematochezia, Denies constipation, Denies diarrhea and Denies loose stools Denies hematuria Musc Denies numbness and Denies tingling Skin/Breast Denies lesions Neuro Denies vertigo, Denies dizziness, Denies numbness and Denies tingling Psych Denies anxiety, Denies depression, Denies homicidal ideation, Denies suicidal ideation and Denies other (substance abuse) Aller/Immun Denies wheezing Physical exam (Primary Care) Vital Signs: Last Vital Signs Pulse 88 03/01/24 08:07 BP 110/78 03/01/24 08:07 Pulse Ox 99 03/01/24 08:07 Oxygen Delivery Method Room Air 03/01/24 08:07 BMI result Body Mass Index 48.6 Tobacco/Smoking Status: Tobacco use Status Tobacco use date assessed 03/01/24 03/01/24 08:15 Patient Tobacco Use Status Never used Tobacco 03/01/24 08:07 e-Cigarette/Vaping Use Never Used 03/01/24 08:07 PHQ-9: PHQ-9 Score PHQ-9: Total score 14 03/01/24 08:07 Depression Screening Interpretation: Positive (has a psychiatrist and therapist, denies any si or hi) Depression Screening Follow-up: Existing condition and In treatment Thrive Assessment: Date of Thrive Assessment Date Thrive assessed 03/01/24 03/01/24 08:15 Currently or been in a relationship where the following occur: I choose not to answer Const General: cooperative Nutritional Appearance: obese morbidly obese Orientation/consciousness: patient oriented x3 HENMT Head: Yes normal to inspection, Yes normocephalic and Yes atraumatic Ears: TM's normal bilaterally Eyes General: appearance normal, both eyes and all related structures Alignment and Position: alignment normal and position normal Neck Neck: Yes normal visual inspection, Yes no lymphadenopathy and Yes supple Resp Effort & Inspection: normal respiratory effort Auscultation: clear to auscultation bilaterally Cardio Rate: regular rate Rhythm: regular rhythm Heart sounds: S1 normal heart sound present, S2 normal heart sound present and no murmurs GI Palpation (GI): Soft to palpation and nontender Auscultation: normal bowel sounds Skin Rashes: no rashes Neuro General: patient oriented x3, moves all extremities, no focal motor deficits and deep tendon reflexes 2+ bilaterally Romberg Test: Negative Psych Appearance: grossly normal Mental Status: mental status grossly normal Speech and movement: Normal speech and movement present Affect: normal affect Attitude: cooperative Thought process: Normal thought process present Thought content: Normal thought content present Insight: Good insight present (Psych) Judgement: Good judgement present (Psych) Assessment and Plan Assessment & Plan (1) Physical exam: Code(s): Z00.00 - Encounter for general adult medical examination without abnormal findings Plan: Labs ordered (2) Carlitos-Danlos disease: Code(s): Q79.60 - Carlitos-Danlos syndrome, unspecified Plan: Referred to rheumatology (3) Family history of systemic lupus erythematosus (SLE) in mother: Code(s): Z82.69 - Family history of other diseases of the musculoskeletal system and connective tissue Plan: Referred to rheumatology (4) Microprolactinoma: Code(s): D35.2 - Benign neoplasm of pituitary gland Plan: neuro (5) PCOS (polycystic ovarian syndrome): Code(s): E28.2 - Polycystic ovarian syndrome Plan: endo Plan The patient agreed to the use of a medical biller coder for this encounter. Scribed for BIANCA Hu by Charisma Carr medical biller coder, on 03/01/2024 at 08:20 EST. Orders: Orders Comprehensive Adrian. Panel Fast Today Z00.00 - Encounter for general adult medical examination without abnormal findings UA CC w/rflx Micro + Cult Today Z00.00 - Encounter for general adult medical examination without abnormal findings Complete Blood Count Auto Diff Today Z00.00 - Encounter for general adult medical examination without abnormal findings TSH reflex Free T4 Today Z00.00 - Encounter for general adult medical examination without abnormal findings Lipid Panel Today Z00.00 - Encounter for general adult medical examination without abnormal findings Referrals Rheumatology Referral Q79.60 - Carlitos-Danlos syndrome, unspecified, Z82.69 - Family history of other diseases of the musculoskeletal system and connective tissue Endocrinology Referral D35.2 - Benign neoplasm of pituitary gland, E28.2 - Polycystic ovarian syndrome Coding Level of Care Code Est Pt Prev Care 18-39y(40858) Diagnoses Physical exam Z00.00 Carlitos-Danlos disease Q79.60 Family history of systemic lupus erythematosus (SLE) in mother Z82.69 Microprolactinoma D35.2 PCOS (polycystic ovarian syndrome) E28.2 Additional Codes LILIANE-7 Assessment Billing - LILIANE-7 Assessment Tool: LILIANE-7 Assessment [id number] ([id number])
== END 2024-03-01 08:38 | disposition home or self-care (01) ==
PROVIDERS: PCP Nurse Practitioner Family; Visit Provider Nurse Practitioner Family
DX: Z00.00 Encounter for general adult medical examination without abnormal findings (principal); Q79.60 Ehlers-Danlos syndrome, unspecified; Z82.69 Family history of other diseases of the musculoskeletal system and connective tissue; D35.2 Benign neoplasm of pituitary gland; E28.2 Polycystic ovarian syndrome
CPT/HCPCS: 99395

== ENCOUNTER 2024-04-13 07:54 | Outpatient (REF) | payer OTHER, SELFPAY ==
[2024-04-13 08:11] LABS: MANUAL DIFF FLAG NO
[2024-04-13 08:35] LABS: Basophils Percent Auto 0.5 % (0-2); Eosinophils Absolute Auto 0.3 X10*3/uL (0.0-0.4); Eosinophils Percent Auto 3.7 % (0-4); Hematocrit 43.4 % (37.0-47.0); Hemoglobin 13.9 g/dl (12.0-16.0); Imm Gran Abs Auto 0.02 X10*3/uL (0.00-0.03); Imm Gran Pct Auto 0.2 % (0.0-0.4); Lymphocytes Absolute Auto 3.3 X10*3/uL (1.2-4.9); Lymphocytes Percent Auto 40.7 % (20-40); Mean Corpuscular Hemoglobin 27.7 pg (27.0-33.0); Mean Corpuscular Volume 86.5 fL (80.0-98.0); Mean Platelet Volume 8.5 fL (9.4-12.3); Monocytes Absolute Auto 0.6 X10*3/uL (0.1-1.2); Monocytes Percent Auto 7.6 % (2-11); Neutrophils Absolute Auto 3.8 x10*3/uL (2.0-8.3); Neutrophils Percent Auto 47.3 % (45-73); Platelet Count 363 X10*3/uL (160-400); Red Blood Count 5.02 X10*6/uL (4.20-5.50); Red Cell Distribution Width 12.6 % (11.0-16.0)
[2024-04-13 09:17] LABS: Alanine Aminotransferase 21 U/L (0-31); Albumin Level 3.9 g/dL (3.5-5.0); Alkaline Phosphatase 73 U/L (39-117); Anion Gap 13 (12-20); Aspartate Amino Transferase 15 U/L (5-31); Bilirubin Total 0.2 mg/dL (0.0-1.0); Blood Urea Nitrogen 10 mg/dL (9-16); Calcium 9.1 mg/dL (8.4-10.2); Carbon Dioxide 26 mmol/L (22-29); Chloride 105 mmol/L (96-108); Cholesterol 169 mg/dL (<200); Estimated Glomerular Filt Rate > 60; Glucose Fasting 84 mg/dL (60-99); HDL Cholesterol 59 mg/dL (>40); LDL Cholesterol Calculated 99 mg/dL (<100); Potassium 4.1 mmol/L (3.3-5.1); Sodium 140 mmol/L (135-145); Total Protein 7.2 g/dL (6.5-8.0); Triglycerides 59 mg/dL (<150)
[2024-04-13 09:32] LABS: TSH reflex Free T4 2.77 uIU/mL (0.32-4.0)
[2024-04-13 09:35] LABS: Appearance Urine Cloudy; Color Urine Dark Yellow; Glucose Urine UA Negative (Negative); Leukocyte Esterase Urine Small (1+) (Negative); Nitrite Urine Negative (Negative); PH 5.5 (5.0-9.0); Specific Gravity - Urine 1.025 (1.005-1.025); UMIC TRIGGER UACC YES; Urine Blood Large (3+) (Negative); Urine Ketones Negative (Negative); Urine Protein 30 (1+) mg/dL (Neg-Trace)
[2024-04-13 10:30] LABS: Bacteria Urine None Seen (None Seen); Hyaline Casts Urine 0-2 /LPF (0-2); RBC Urine >20 /HPF (0-2); Squamous Epithelial Cell Urine 0-2 /HPF (0-2); UACC Culture Trigger YES; WBC Urine 0-5 /HPF (0-5)
== END 2024-04-13 07:55 | disposition home or self-care (01) ==
LOC: HO.LAB 07:54
PROVIDERS: PCP Nurse Practitioner Family; Visit Provider Nurse Practitioner Family
DX: Z00.00 Encounter for general adult medical examination without abnormal findings (principal)
CPT/HCPCS: 36415; 80053; 80061; 81001; 81003; 84443; 85025; 87086

== ENCOUNTER 2024-06-12 08:50 | Outpatient (AMB) | payer OTHER, SELFPAY ==
[2024-06-12 09:02] VITALS: BMI 49.5
--- NOTE | 2024-06-12 09:02 | A.OFFVIS_ITS ---
VS Expanded 06/12/24 09:02 Height 5 ft Weight 253 lb 4.978 oz BMI 49.5 Intake Visit Reasons: Obesity/LVM Allergies cat dander [CATS] Allergy (Unknown, Verified 03/01/24 08:11) RASH, WHEEZING dog dander [DOGS] Allergy (Unknown, Verified 03/01/24 08:11) RASH, WHEEZING egg Allergy (Unknown, Verified 03/01/24 08:11) Itching wheat Allergy (Unknown, Verified 03/01/24 08:11) Gastrointestinal Upset montelukast Adverse Reaction (Mild, Verified 03/01/24 08:11) Depression milk Adverse Reaction (Unknown, Verified 03/01/24 08:11) Gastrointestinal Upset Nutrition Presentation Details: Pt presents for MNT f/u for obesity Pt reports working on reducing fried foods Food frequency fruits- not including greens - not including fluids 40-60 oz/d eating out 4-5 x/wk physical activity- sedentary BS Monitoring Most Recent Diabetes Results: Cholesterol 169 mg/dL (<200) 04/13/24 HDL Cholesterol 59 mg/dL (>40) 04/13/24 Triglycerides 59 mg/dL (<150) 04/13/24 Creatinine 0.65 mg/dL (0.5-1.4) 04/13/24 Blood Urea Nitrogen 10 mg/dL (9-16) 04/13/24 Sodium 140 mmol/L (135-145) 04/13/24 Potassium 4.1 mmol/L (3.3-5.1) 04/13/24 Chloride 105 mmol/L (96-108) 04/13/24 Carbon Dioxide 26 mmol/L (22-29) 04/13/24 Calcium 9.1 mg/dL (8.4-10.2) 04/13/24 AST 15 U/L (5-31) 04/13/24 ALT 21 U/L (0-31) 04/13/24 Total Protein 7.2 g/dL (6.5-8.0) 04/13/24 Albumin 3.9 g/dL (3.5-5.0) 04/13/24 [facility] Medical History Pes planus of both feet Family history of systemic lupus erythematosus (SLE) in mother Pain in joint involving multiple sites Obesity Chronic allergic rhinitis BUZZ (obstructive sleep apnea) Asthma Asthma Hypothyroidism Ocular hypertension Prolactinoma Cervical lymphadenopathy Vitamin D deficiency Andrews's disease Microprolactinoma Generalized headaches Anxiety Eczema PCOS (polycystic ovarian syndrome) Pituitary microadenoma with hyperprolactinemia Hypothyroid Asthma Surgical History No history of previous surgery Family History Paternal Grandmother Diabetes Father Asthma Mental health disorder Sister Asthma Mental health disorder Mother Mental health disorder Other Arthritis Social History Housing: House Alcohol intake: never Patient Tobacco Use Status: Never used Tobacco e-Cigarette/Vaping Use: Never Used Second Hand Smoke Exposure: No service: No Current occupational status: unemployed Sexual orientation: Straight/Heterosexual Gender identity: Female Cognitive needs: No Hearing needs: No Vision needs: Yes Female Reproductive History Menstrual Age of Menarche: 12 Assessment & Plan Assessment & Plan (1) Morbid obesity with BMI of 45.0-49.9, adult: Comment: BMI on 04/2023 at 52.3 working on diet modifications , bmi on 04/2024 at 49.3) Code(s): E66.01 - Morbid (severe) obesity due to excess calories; Z68.42 - Body mass index [BMI] 45.0-49.9, adult Category: Medical Plan: wt: 122 kg (121 kg -07/2022 114 kg (02/2024), 114 kg Est kcal needs as per MSJ: 2200 (40% carb, 30% protein/fat) Est fluid needs as per 25-30 ml/d: 3500 Est prot per day as per 1 g/kg bw: 115 Recommend fiber intake : 8-10 g per day and gradually increase to 25-28 g per day for women and 35-38 g for men or as tolerated Recommend sodium intake per day : less than 2000 mg Educated patient on: ( R = reviewed V = verbalizes understanding N/R = needs review N/A = not applicable * practice mindful eating strategies, eating slowly, savoring food: R, * Food sources of carbohydrate, adequate serving sizes and its role in various h ealth conditions: R * Differences between complex carbohydrates a simple carbohydrates, role of fiber in diet: R * Differences between types of fats and role in diet (mono on saturated fat fatty acids, saturated fatty acids, trans fats): R * Food sources of sodium in salt and healthy modifications for heart health in kidney health: NR * include fruit as snack, reviewed portion sizes : R * Vitamins and minerals: R * Healthy plate method concept: R * Physical activityy: Benefits a precaution: R - * Hydration : R, V * Choosing naturally wheat free foods, when making meals at home or eating out or choosing frozen meals : R Patient Instructions: Resume including salads/greens 4 x/wk Resume physical activity goal 30 minutes per day Continue working on reducing frequency of eating out , choose baked /microwaved potato /sweet potato, chicken wings and salad as example Coding Level of Care Code Nutr Indiv Subseq (15651) Diagnoses Morbid obesity with BMI of 45.0-49.9, adult E66.01; Z68.42 Time Spent (min) 30
== END 2024-06-12 09:27 | disposition home or self-care (01) ==
PROVIDERS: PCP Nurse Practitioner Family; Visit Provider Dietitian, Registered
DX: E66.01 Morbid (severe) obesity due to excess calories (principal); Z68.42 Body mass index [BMI] 45.0-49.9, adult

== ENCOUNTER → 2024-06-12 08:50 | Outpatient (BNVA) | payer OTHER, SELFPAY | PROVIDERS: PCP Nurse Practitioner Family; Visit Provider Dietitian, Registered | DX: E66.01 Morbid (severe) obesity due to excess calories (principal); Z68.42 Body mass index [BMI] 45.0-49.9, adult; Z71.3 Dietary counseling and surveillance | CPT/HCPCS: 97803 ==

== ENCOUNTER 2024-08-14 08:23 | Outpatient (AMB) | payer OTHER, SELFPAY ==
[2024-08-14 08:34] VITALS: BMI 50.5
--- NOTE | 2024-08-14 08:34 | MHC.AMNUTRGE ---
VS Expanded 08/14/24 08:34 Height 5 ft Weight 258 lb 9.636 oz BMI 50.5 Intake Visit Reasons: obesity/Confirmed Allergies cat dander [CATS] Allergy (Unknown, Verified 03/01/24 08:11) RASH, WHEEZING dog dander [DOGS] Allergy (Unknown, Verified 03/01/24 08:11) RASH, WHEEZING egg Allergy (Unknown, Verified 03/01/24 08:11) Itching wheat Allergy (Unknown, Verified 03/01/24 08:11) Gastrointestinal Upset montelukast Adverse Reaction (Mild, Verified 03/01/24 08:11) Depression milk Adverse Reaction (Unknown, Verified 03/01/24 08:11) Gastrointestinal Upset Nutrition Presentation Details: Pt presents for MNT f/u for obesity Pt reports keeping sedentary, admits to increasing portions of mainly starches. Reports choosing foods free of allergens (wheat, eggs, milk) BS Monitoring Most Recent Diabetes Results: Cholesterol 169 mg/dL (<200) 04/13/24 HDL Cholesterol 59 mg/dL (>40) 04/13/24 Triglycerides 59 mg/dL (<150) 04/13/24 Creatinine 0.65 mg/dL (0.5-1.4) 04/13/24 Blood Urea Nitrogen 10 mg/dL (9-16) 04/13/24 Sodium 140 mmol/L (135-145) 04/13/24 Potassium 4.1 mmol/L (3.3-5.1) 04/13/24 Chloride 105 mmol/L (96-108) 04/13/24 Carbon Dioxide 26 mmol/L (22-29) 04/13/24 Calcium 9.1 mg/dL (8.4-10.2) 04/13/24 AST 15 U/L (5-31) 04/13/24 ALT 21 U/L (0-31) 04/13/24 Total Protein 7.2 g/dL (6.5-8.0) 04/13/24 Albumin 3.9 g/dL (3.5-5.0) 04/13/24 [facility] Medical History Pes planus of both feet Family history of systemic lupus erythematosus (SLE) in mother Pain in joint involving multiple sites Obesity Chronic allergic rhinitis BUZZ (obstructive sleep apnea) Asthma Asthma Hypothyroidism Ocular hypertension Prolactinoma Cervical lymphadenopathy Vitamin D deficiency Andrews's disease Microprolactinoma Generalized headaches Anxiety Eczema PCOS (polycystic ovarian syndrome) Pituitary microadenoma with hyperprolactinemia Hypothyroid Asthma Surgical History No history of previous surgery Family History Paternal Grandmother Diabetes Father Asthma Mental health disorder Sister Asthma Mental health disorder Mother Mental health disorder Other Arthritis Social History Housing: House Alcohol intake: never Patient Tobacco Use Status: Never used Tobacco e-Cigarette/Vaping Use: Never Used Second Hand Smoke Exposure: No service: No Current occupational status: unemployed Sexual orientation: Straight/Heterosexual Gender identity: Female Cognitive needs: No Hearing needs: No Vision needs: Yes Female Reproductive History Menstrual Age of Menarche: 12 Assessment & Plan Assessment & Plan (1) Morbid obesity with BMI of 45.0-49.9, adult: Comment: BMI on 04/2023 at 52.3 , bmi on 04/2024 at 49.3), 08/29 50.5 Code(s): E66.01 - Morbid (severe) obesity due to excess calories; Z68.42 - Body mass index [BMI] 45.0-49.9, adult Category: Medical Plan: wt: 122 kg (121 kg -07/2022) 117 kg (08/29) Est kcal needs as per MSJ: 2200 (40% carb, 30% protein/fat) Est fluid needs as per 25-30 ml/d: 3500 Est prot per day as per 1 g/kg bw: 115 Recommend fiber intake : 8-10 g per day and gradually increase to 25-28 g per day for women and 35-38 g for men or as tolerated Recommend sodium intake per day : less than 2000 mg Educated patient on: ( R = reviewed V = verbalizes understanding N/R = needs review N/A = not applicable practice mindful eating strategies, eating slowly, savoring food: R, Food sources of carbohydrate, adequate serving sizes and its role in various health conditions: R Differences between complex carbohydrates a simple carbohydrates, role of fiber in diet: R Differences between types of fats and role in diet (mono on saturated fat fatty acids, saturated fatty acids, trans fats): R Food sources of sodium in salt and healthy modifications for heart health in kidney health: NR include fruit as snack, reviewed portion sizes : R Vitamins and minerals: R Healthy plate method concept: R Physical activityy: Benefits a precaution: R - Hydration : R, V Choosing naturally wheat free foods, when making meals at home or eating out or choosing frozen meals : R Patient Instructions: Engage in physical activity, start with 10 minutes and increase to 30 minutes , chair exercises, walking, physical therapy exercises , set a times that works of you (3pm as stated), Resume having salad/vegetable with lean protein as part of your meal practice mindful eating to help you with portion sizes (60 g carbs per meals 4 oz lean protein, non starchy veg) see food recipe ideas Coding Level of Care Code Nutr Indiv Subseq (53036) Diagnoses Morbid obesity with BMI of 45.0-49.9, adult E66.01; Z68.42 Time Spent (min) 30
== END 2024-08-14 08:57 | disposition home or self-care (01) ==
PROVIDERS: PCP Nurse Practitioner Family; Visit Provider Dietitian, Registered
DX: E66.01 Morbid (severe) obesity due to excess calories (principal); Z68.42 Body mass index [BMI] 45.0-49.9, adult

== ENCOUNTER → 2024-08-14 08:23 | Outpatient (BNVA) | payer OTHER, SELFPAY | PROVIDERS: PCP Nurse Practitioner Family; Visit Provider Dietitian, Registered | DX: E66.01 Morbid (severe) obesity due to excess calories (principal); Z68.43 Body mass index [BMI] 50.0-59.9, adult | CPT/HCPCS: 97803 ==

== ENCOUNTER 2024-09-13 09:48 | Outpatient (AMB) | payer OTHER, SELFPAY ==
[2024-09-13 10:00] VITALS: BP 110/62; PULSE 101; O2SAT 96; BMI 51.9
--- NOTE | 2024-09-13 10:00 | A.OFFVIS_ITS ---
Vital Signs 09/13/24 10:00 Height 5 ft Weight 265 lb 10.512 oz BMI 51.9 BP 110/62 Blood Pressure Location Lt brachial Position Sitting Pulse 101 H Pulse Source Pulse Oximeter Pulse Oximetry (%) 96 Oxygen Delivery Method Room Air Intake Visit Reasons: Asthma Allergies peanut Allergy (Intermediate, Verified 09/13/24 10:05) Itching tree nut Allergy (Intermediate, Verified 09/13/24 10:05) Itching cat dander [CATS] Allergy (Unknown, Verified 03/01/24 08:11) RASH, WHEEZING dog dander [DOGS] Allergy (Unknown, Verified 03/01/24 08:11) RASH, WHEEZING egg Allergy (Unknown, Verified 03/01/24 08:11) Itching wheat Allergy (Unknown, Verified 03/01/24 08:11) Gastrointestinal Upset montelukast Adverse Reaction (Mild, Verified 03/01/24 08:11) Depression milk Adverse Reaction (Unknown, Verified 03/01/24 08:11) Gastrointestinal Upset HPI Comments Details: The patient is a 23 year woman with known lifelong history of asthma. She has been followed closely by Allergy and immunology. She has been on allergy shots and subsequently was taken off because her asthma to active and she was placed on Xolair. She does and give herself her own Xolair every 4 weeks. She is not sure about the dose. She typically does 2 injections. She also takes Advair and Spiriva. These medications have been helpful. She still needs her rescue inhaler either daily or every other day which is too much. She also gets short of breath with activity. The patient also complains of daytime drowsiness. She does have headaches in the morning. There was documented snoring. The patient does have an elevated [place] score of 14/24. She was supposed to have a sleep study but never followed through. At this point will go ahead and request a sleep study for her. 08/31/2022 the patient is here for a pulmonary follow-up visit. She continues to use her inhalers as prescribed. She has had to use her rescue inhaler more often. She continues with Xolair every 4 weeks. The patient did have blood work done her IgE levels noted to 429 and does have significant allergies noted. She is also wondering about food allergies. She is feeling like some of the foods that she is eating have been activating her asthma as well. Therefore she can have additional allergy testing for the foods that may be precipitating her symptoms as well meantime will go ahead and adjust her Xolair from every 4 weeks to every 2 weeks. Should need a maximum dose based on her weight and also the level of her IgE. She is going to continue with the Advair and the Spiriva. She may be a good candidate for triple therapy. When she is running out of medications she can always call we can send her Trelegy to the pharmacy. She did have a sleep study. No evidence of any significant sleep apnea this is reassuring. She knows not to sleep some worse on the right side where she had more hypopneas episodes. In addition to this the patient also had PFTs done demonstrating normal lung capacity which is reassuring. She did have an elevated DLCO above normal therefore exposure to exogenous her monoxide needs to be monitored. She does state that she does have some secondhand smoke exposure. 07/23/2023 the patient is here for a pulmonary follow-up visit. The patient overall has been doing fair. She has had worsening respiratory symptoms the st few months. Although is phenotype season for viruses in the cold air. She is has required prednisone. The patient has continued on the Xolair. The Xolair has been partially helpful. Seems to help her the eczema in her allergies but tends to not help the asthma as much. The patient has had blood work in the past demonstrating some degree of eosinophilia along with the elevated IgE. Therefore, I do believe that she will do better on Dupixent. She has already been on Xolair couple years with only partial response. In addition to that we did try putting her on Trelegy but it would not cover. Therefore, will go ahead and optimize respiratory therapy by increasing her Advair to the maximum dose and she can continue the Spiriva. I did give her information about Dupixent. She will let us know if she wants to start it. She will have to do blood work. Otherwise will talk about her when she returns in the springtime. 11/12/2023 the patient is here for pulmonary follow-up visit. Overall she is doing better. She is now on Dulera and Spiriva. She continues on the Xolair every 2 weeks. Seems to be helpful. In addition to that the eczema appears to be helpful in doing better overall. We did talk about Dupixent during the last time this point the patient feels comfortable with current regimen so therefore will hold off on Dupixent. She does carry her EpiPen. She has never had to use it which is reassuring. There was also question of sleep apnea. She did have a home sleep study back in August 2022 demonstrating no evidence of any significant sleep apnea. If the patient continues have daytime drowsiness or any concerns we can also consider repeating the study. The patient follow-up in 8-10 months. If she has any difficulties prior to that she will call for an earlier assessment. 09/13/2024 the patient is here for pulmonary follow-up visit. Overall she is doing okay. She started developing worsening cough the last couple weeks. Some chest tightness. She has been using nebulizer rescue inhaler more often. In the meantime she continues on the Dulera and the Spiriva seemed to be working well. We did talk about considering changing her to a triple inhaler but the patient right now is okay on what she has. She will consider switching in the future. She does not like the powder inhalers the Trelegy would not be a good option anyway will can always consider breztri. In addition she continues on her Xolair. I will make sure she has an updated EpiPen. Will start her on a course of Z-Michael. Right now her respiratory exam is okay just with minimal expand expiratory wheezing and therefore I do not believe that she needs any steroids right now but I will send her a Medrol Michael that she can start if her symptoms were to worsen. Otherwise patient is doing well will follow-up in a year's time. [facility] Medical History Pes planus of both feet Family history of systemic lupus erythematosus (SLE) in mother Pain in joint involving multiple sites Obesity Chronic allergic rhinitis BUZZ (obstructive sleep apnea) Asthma Asthma Hypothyroidism Ocular hypertension Prolactinoma Cervical lymphadenopathy Vitamin D deficiency Andrews's disease Microprolactinoma Generalized headaches Anxiety Eczema PCOS (polycystic ovarian syndrome) Pituitary microadenoma with hyperprolactinemia Hypothyroid Asthma Surgical History No history of previous surgery Family History Paternal Grandmother Diabetes Father Asthma Mental health disorder Sister Asthma Mental health disorder Mother Mental health disorder Other Arthritis Social History Housing: House Alcohol intake: never Patient Tobacco Use Status: Never used Tobacco e-Cigarette/Vaping Use: Never Used Second Hand Smoke Exposure: No service: No Current occupational status: unemployed Sexual orientation: Straight/Heterosexual Gender identity: Female Cognitive needs: No Hearing needs: No Vision needs: Yes Female Reproductive History Menstrual Age of Menarche: 12 Review of Systems Const Reports daytime sleepiness, Denies headache(s) and Reports snoring Eyes Denies change in vision ENT Denies change in voice, Denies headache(s), Reports nasal congestion and Reports nasal discharge Card Denies chest pain Resp Reports chest congestion, Reports cough, Reports snoring and Reports wheezing GI Reports no additional complaints Musc Reports no additional complaints Skin/Breast Denies rash Neuro Reports no additional complaints and Denies headache(s) Endo Denies flushing Jose David/Lymph Denies easy bruising Aller/Immun Reports wheezing Physical Exam Vital Signs: Last Vital Signs Pulse 101 H 09/13/24 10:00 BP 110/62 09/13/24 10:00 Pulse Ox 96 09/13/24 10:00 Oxygen Delivery Method Room Air 09/13/24 10:00 BMI result Body Mass Index 51.9 Const General: comfortable HEENT Head: Yes normocephalic Eyes General: appearance normal, both eyes and all related structures Neck Neck: Yes supple Chest Chest palpation & inspection: normal inspection of the chest Resp Effort & Inspection: normal respiratory effort and prolonged expiratory phase Auscultation: no wheezes and diminished lung sounds Cardio Rate: regular rate Rhythm: regular rhythm Heart sounds: S1 normal heart sound present and S2 normal heart sound present GI Auscultation: normal bowel sounds Skin General skin exam: no rashes or lesions noted Extrem General: Yes no clubbing, cyanosis or edema Assessment & Plan Assessment & Plan (1) Asthma: Code(s): J45.909 - Unspecified asthma, uncomplicated Category: Medical Qualifiers: Asthma complication type: with acute exacerbation Asthma persistence: persistent Asthma severity: severe Qualified Code(s): J45.51 - Severe persistent asthma with (acute) exacerbation (2) Chronic allergic rhinitis: Code(s): J30.9 - Allergic rhinitis, unspecified Category: Medical (3) BUZZ (obstructive sleep apnea): Comment: No BUZZ on home PSG Code(s): G47.33 - Obstructive sleep apnea (adult) (pediatric) Category: Medical Plan ZPack medrol if no better continue Dulera continue Spiriva JENIFFER as needed anti histamine therapy continue Xolair 375mg Q2 weeks. Consider Dupixent. Info provided to the patient. She will call us if she wants to switch F/U 10-12 months Medications: New azithromycin 500 mg PO DAILY 5 tabs 0RF 5 days methylprednisolone (Medrol (Michael)) PO PER PKG DIR 21 ea 0RF 6 days Refilled epinephrine (EpiPen 2-Michael) for 2 doses 0.3 mg (0.3 mL) IM Q10M PRN 2 ea 6RF anaphylaxis 30 days J45.40 - Moderate persistent asthma, uncomplicated Coding Level of Care Code Est Pt Level 4 (06975) Diagnoses Severe persistent asthma with acute exacerbation J45.51 Asthma complication type: with acute exacerbation Asthma persistence: persistent Asthma severity: severe Chronic allergic rhinitis J30.9 BUZZ (obstructive sleep apnea) G47.33 Time Spent (min) 16
== END 2024-09-13 10:24 | disposition home or self-care (01) ==
LOC: HO.HPS 09:49
PROVIDERS: PCP Nurse Practitioner Family; Visit Provider Hospitalist
DX: J45.51 Severe persistent asthma with (acute) exacerbation (principal); J30.9 Allergic rhinitis, unspecified; G47.33 Obstructive sleep apnea (adult) (pediatric)
CPT/HCPCS: 99214

== ENCOUNTER → 2024-09-13 09:48 | Outpatient (BNVA) | payer OTHER, SELFPAY | PROVIDERS: PCP Nurse Practitioner Family; Visit Provider Hospitalist | DX: J45.51 Severe persistent asthma with (acute) exacerbation (principal); J30.9 Allergic rhinitis, unspecified; G47.33 Obstructive sleep apnea (adult) (pediatric) | CPT/HCPCS: 99212 ==

== ENCOUNTER 2024-09-18 09:18 | Outpatient (AMB) | payer OTHER, SELFPAY ==
--- NOTE | 2024-09-18 09:44 | A.OFFVIS_ITS ---
VS Expanded 09/18/24 09:46 Height 5 ft Weight 259 lb 11.272 oz BMI 50.7 Intake Visit Reasons: monitor weight Allergies peanut Allergy (Intermediate, Verified 09/13/24 10:05) Itching tree nut Allergy (Intermediate, Verified 09/13/24 10:05) Itching cat dander [CATS] Allergy (Unknown, Verified 03/01/24 08:11) RASH, WHEEZING dog dander [DOGS] Allergy (Unknown, Verified 03/01/24 08:11) RASH, WHEEZING egg Allergy (Unknown, Verified 03/01/24 08:11) Itching wheat Allergy (Unknown, Verified 03/01/24 08:11) Gastrointestinal Upset montelukast Adverse Reaction (Mild, Verified 03/01/24 08:11) Depression milk Adverse Reaction (Unknown, Verified 03/01/24 08:11) Gastrointestinal Upset Nutrition Presentation Details: Pt presents for MNT f/u for obesity Pt reports physical act has stopped for the past week typical physically activity: 10-15 minutes /day (activities from physical therapy) noon: tuna/onion with crackers or bread (choosing wheat free) with water or OJ snack: fast foods, chips, fruits dinner: chicken/potato or rice or burger/fries at fast food fluids: water, juice 16-24 oz/d denies constipation/diarrhea BS Monitoring Most Recent Diabetes Results: Cholesterol 169 mg/dL (<200) 04/13/24 HDL Cholesterol 59 mg/dL (>40) 04/13/24 Triglycerides 59 mg/dL (<150) 04/13/24 Creatinine 0.65 mg/dL (0.5-1.4) 04/13/24 Blood Urea Nitrogen 10 mg/dL (9-16) 04/13/24 Sodium 140 mmol/L (135-145) 04/13/24 Potassium 4.1 mmol/L (3.3-5.1) 04/13/24 Chloride 105 mmol/L (96-108) 04/13/24 Carbon Dioxide 26 mmol/L (22-29) 04/13/24 Calcium 9.1 mg/dL (8.4-10.2) 04/13/24 AST 15 U/L (5-31) 04/13/24 ALT 21 U/L (0-31) 04/13/24 Total Protein 7.2 g/dL (6.5-8.0) 04/13/24 Albumin 3.9 g/dL (3.5-5.0) 04/13/24 COUNT INCLUDES THE [facility] Medical History Pes planus of both feet Family history of systemic lupus erythematosus (SLE) in mother Pain in joint involving multiple sites Obesity Chronic allergic rhinitis BUZZ (obstructive sleep apnea) Asthma Asthma Hypothyroidism Ocular hypertension Prolactinoma Cervical lymphadenopathy Vitamin D deficiency Andrews's disease Microprolactinoma Generalized headaches Anxiety Eczema PCOS (polycystic ovarian syndrome) Pituitary microadenoma with hyperprolactinemia Hypothyroid Asthma Surgical History No history of previous surgery Family History Paternal Grandmother Diabetes Father Asthma Mental health disorder Sister Asthma Mental health disorder Mother Mental health disorder Other Arthritis Social History Housing: House Alcohol intake: never Patient Tobacco Use Status: Never used Tobacco e-Cigarette/Vaping Use: Never Used Second Hand Smoke Exposure: No service: No Current occupational status: unemployed Sexual orientation: Straight/Heterosexual Gender identity: Female Cognitive needs: No Hearing needs: No Vision needs: Yes Female Reproductive History Menstrual Age of Menarche: 12 Assessment & Plan Assessment & Plan (1) Morbid obesity with BMI of 45.0-49.9, adult: Comment: BMI on 04/2023 at 52.3 , bmi on 04/2024 at 49.3), 08/29 50.5 (09/26) Code(s): E66.01 - Morbid (severe) obesity due to excess calories; Z68.42 - Body mass index [BMI] 45.0-49.9, adult Category: Medical Plan: wt: 122 kg (121 kg -07/2022) 117 kg (08/29), 118 kg (09/26) Est kcal needs as per MSJ: 2200 (40% carb, 30% protein/fat) Est fluid needs as per 25-30 ml/d: 3500 Est prot per day as per 1 g/kg bw: 115 Recommend fiber intake : 8-10 g per day and gradually increase to 25-28 g per day for women and 35-38 g for men or as tolerated Recommend sodium intake per day : less than 2000 mg Educated patient on: ( R = reviewed V = verbalizes understanding N/R = needs review N/A = not applicable * practice mindful eating strategies, eating slowly, savoring food: R, * Food sources of carbohydrate, adequate serving sizes and its role in various health conditions: R * Differences between complex carbohydrates a simple carbohydrates, role of fiber in diet: R * Differences between types of fats and role in diet (mono on saturated fat fatty acids, saturated fatty acids, trans fats): R * Food sources of sodium in salt and healthy modifications for heart health in kidney health: NR * include fruit as snack, reviewed portion sizes : R * Vitamins and minerals: R * Healthy plate method concept: R * Physical activityy: Benefits a precaution: R - * Hydration : R, V * Choosing naturally wheat free foods, when making meals at home or eating out or choosing frozen meals : R Patient Instructions: Resume including salads /non starchy vegetables as part of your meal, Have a salad/non starchy veg with 3-4 oz protein 3 times/wk increase physical activity 30 minutes 2 times a week in addition to the stretches Continue working on reducing on fats (fried foods, chips and similar foods ) Coding Level of Care Code Nutr Indiv Subseq (96211) Diagnoses Morbid obesity with BMI of 45.0-49.9, adult E66.01; Z68.42 Time Spent (min) 15
[2024-09-18 09:46] VITALS: BMI 50.7
== END 2024-09-18 10:13 | disposition home or self-care (01) ==
LOC: HO.ENCR 09:19
PROVIDERS: PCP Nurse Practitioner Family; Visit Provider Dietitian, Registered
DX: E66.01 Morbid (severe) obesity due to excess calories (principal); Z68.42 Body mass index [BMI] 45.0-49.9, adult

== ENCOUNTER → 2024-09-18 09:18 | Outpatient (BNVA) | payer OTHER, SELFPAY | PROVIDERS: PCP Nurse Practitioner Family; Visit Provider Dietitian, Registered | DX: E66.01 Morbid (severe) obesity due to excess calories (principal); Z68.43 Body mass index [BMI] 50.0-59.9, adult | CPT/HCPCS: 97803 ==

== ENCOUNTER 2024-10-24 09:17 | Outpatient (AMB) | payer OTHER, SELFPAY ==
[2024-10-24 09:45] VITALS: BMI 50.7
--- NOTE | 2024-10-24 09:45 | MHC.AMNUTRGE ---
VS Expanded 10/24/24 09:45 Height 5 ft Weight 259 lb 7.745 oz BMI 50.7 Intake Visit Reasons: obesity Allergies peanut Allergy (Intermediate, Verified 09/13/24 10:05) Itching tree nut Allergy (Intermediate, Verified 09/13/24 10:05) Itching cat dander [CATS] Allergy (Unknown, Verified 03/01/24 08:11) RASH, WHEEZING dog dander [DOGS] Allergy (Unknown, Verified 03/01/24 08:11) RASH, WHEEZING egg Allergy (Unknown, Verified 03/01/24 08:11) Itching wheat Allergy (Unknown, Verified 03/01/24 08:11) Gastrointestinal Upset montelukast Adverse Reaction (Mild, Verified 03/01/24 08:11) Depression milk Adverse Reaction (Unknown, Verified 03/01/24 08:11) Gastrointestinal Upset Nutrition Presentation Details: Pt presents for MNT f/u obesity Pt reports keeping sedentary no meal routine water 32 oz/d fruits : 2-3/d ve-2x/wk BS Monitoring Most Recent Diabetes Results: Cholesterol 169 mg/dL (<200) 04/13/24 HDL Cholesterol 59 mg/dL (>40) 04/13/24 Triglycerides 59 mg/dL (<150) 04/13/24 Creatinine 0.65 mg/dL (0.5-1.4) 04/13/24 Blood Urea Nitrogen 10 mg/dL (9-16) 04/13/24 Sodium 140 mmol/L (135-145) 04/13/24 Potassium 4.1 mmol/L (3.3-5.1) 04/13/24 Chloride 105 mmol/L (96-108) 04/13/24 Carbon Dioxide 26 mmol/L (22-29) 04/13/24 Calcium 9.1 mg/dL (8.4-10.2) 04/13/24 AST 15 U/L (5-31) 04/13/24 ALT 21 U/L (0-31) 04/13/24 Total Protein 7.2 g/dL (6.5-8.0) 04/13/24 Albumin 3.9 g/dL (3.5-5.0) 04/13/24 [facility] Medical History Pes planus of both feet Family history of systemic lupus erythematosus (SLE) in mother Pain in joint involving multiple sites Obesity Chronic allergic rhinitis BUZZ (obstructive sleep apnea) Asthma Asthma Hypothyroidism Ocular hypertension Prolactinoma Cervical lymphadenopathy Vitamin D deficiency Andrews's disease Microprolactinoma Generalized headaches Anxiety Eczema PCOS (polycystic ovarian syndrome) Pituitary microadenoma with hyperprolactinemia Hypothyroid Asthma Surgical History No history of previous surgery Family History Paternal Grandmother Diabetes Father Asthma Mental health disorder Sister Asthma Mental health disorder Mother Mental health disorder Other Arthritis Social History (Reviewed 09/13/24 @ 10:04 by Lizabeth Fair [facility]) Housing: House Alcohol intake: never Patient Tobacco Use Status: Never used Tobacco e-Cigarette/Vaping Use: Never Used Second Hand Smoke Exposure: No service: No Current occupational status: unemployed Sexual orientation: Straight/Heterosexual Gender identity: Female Cognitive needs: No Hearing needs: No Vision needs: Yes Female Reproductive History Menstrual Age of Menarche: 12 Assessment & Plan Assessment & Plan (1) Morbid obesity with BMI of 45.0-49.9, adult: Comment: BMI on 04/2023 at 52.3 , bmi on 04/2024 at 49.3), 08/29 50.5 (09/26) Code(s): E66.01 - Morbid (severe) obesity due to excess calories; Z68.42 - Body mass index [BMI] 45.0-49.9, adult Category: Medical Plan: wt: 122 kg (121 kg -07/2022) 117 kg (08/29), 118 kg (09/26), 10/27 Est kcal needs as per MSJ: 2200 (40% carb, 30% protein/fat) Est fluid needs as per 25-30 ml/d: 3500 Est prot per day as per 1 g/kg bw: 115 Recommend fiber intake : 8-10 g per day and gradually increase to 25-28 g per day for women and 35-38 g for men or as tolerated Recommend sodium intake per day : less than 2000 mg Educated patient on: ( R = reviewed V = verbalizes understanding N/R = needs review N/A = not applicable practice mindful eating strategies, eating slowly, savoring food: R, Food sources of carbohydrate, adequate serving sizes and its role in various health conditions: R Differences between complex carbohydrates a simple carbohydrates, role of fiber in diet: R Differences between types of fats and role in diet (mono on saturated fat fatty acids, saturated fatty acids, trans fats): R Food sources of sodium in salt and healthy modifications for heart health in kidney health: NR include fruit as snack, reviewed portion sizes : R Vitamins and minerals: R Healthy plate method concept: R Physical activityy: Benefits a precaution: R - Hydration : R, V Choosing naturally wheat free foods, when making meals at home or eating out or choosing frozen meals : R Patient Instructions: work on having a meal routine 9-10 am breakfst 2-3 pm meal 6- 7 pm meal Choose a snack with fruit/veg , example vegetable fruit smoothies , including foods with anti inflammatory properties - see recipes Coding Level of Care Code Nutr Indiv Subseq (78698) Diagnoses Morbid obesity with BMI of 45.0-49.9, adult E66.01; Z68.42 Time Spent (min) 20
== END 2024-10-24 10:07 | disposition home or self-care (01) ==
LOC: HO.ENCR 09:18
PROVIDERS: PCP Nurse Practitioner Family; Visit Provider Dietitian, Registered
DX: E66.01 Morbid (severe) obesity due to excess calories (principal); Z68.42 Body mass index [BMI] 45.0-49.9, adult

== ENCOUNTER → 2024-10-24 09:17 | Outpatient (BNVA) | payer OTHER, SELFPAY | PROVIDERS: PCP Nurse Practitioner Family; Visit Provider Dietitian, Registered | DX: E66.01 Morbid (severe) obesity due to excess calories (principal); Z71.3 Dietary counseling and surveillance; Z68.43 Body mass index [BMI] 50.0-59.9, adult | CPT/HCPCS: 97803 ==

== ENCOUNTER → 2024-10-30 07:50 | Outpatient (REF) | payer OTHER, SELFPAY | LOC: HO.CARD 07:50 | PROVIDERS: PCP Nurse Practitioner Family; Visit Provider Nurse Practitioner Family | DX: R00.0 Tachycardia, unspecified (principal) | CPT/HCPCS: 93242 ==

== ENCOUNTER → 2024-10-30 08:20 | Outpatient (BNV) | payer OTHER, SELFPAY | PROVIDERS: PCP Nurse Practitioner Family; Visit Provider Internal Medicine | DX: I47.10 Supraventricular tachycardia, unspecified (principal) | CPT/HCPCS: 93244 ==

== ENCOUNTER 2024-12-05 08:17 | Outpatient (AMB) | payer OTHER, SELFPAY ==
[2024-12-05 08:35] VITALS: BMI 52.0
--- NOTE | 2024-12-05 08:35 | A.OFFVIS_ITS ---
VS Expanded 12/05/24 08:35 Height 5 ft Weight 266 lb 5.094 oz BMI 52.0 Intake Visit Reasons: Obesity Allergies peanut Allergy (Intermediate, Verified 09/13/24 10:05) Itching tree nut Allergy (Intermediate, Verified 09/13/24 10:05) Itching cat dander [CATS] Allergy (Unknown, Verified 03/01/24 08:11) RASH, WHEEZING dog dander [DOGS] Allergy (Unknown, Verified 03/01/24 08:11) RASH, WHEEZING egg Allergy (Unknown, Verified 03/01/24 08:11) Itching wheat Allergy (Unknown, Verified 03/01/24 08:11) Gastrointestinal Upset montelukast Adverse Reaction (Mild, Verified 03/01/24 08:11) Depression milk Adverse Reaction (Unknown, Verified 03/01/24 08:11) Gastrointestinal Upset Nutrition Presentation Details: Pt presents for MNT f/u for obesity Pt not working on meal routine, keeping sedentary including foods with allergens, breads/dairy) fruits: not including vegetables/salads: 2 x/wk fish : 0-1/wk reports most meals are prepackaged, easy to prepare BS Monitoring Most Recent Diabetes Results: Cholesterol 169 mg/dL (<200) 04/13/24 HDL Cholesterol 59 mg/dL (>40) 04/13/24 Triglycerides 59 mg/dL (<150) 04/13/24 Creatinine 0.65 mg/dL (0.5-1.4) 04/13/24 Blood Urea Nitrogen 10 mg/dL (9-16) 04/13/24 Sodium 140 mmol/L (135-145) 04/13/24 Potassium 4.1 mmol/L (3.3-5.1) 04/13/24 Chloride 105 mmol/L (96-108) 04/13/24 Carbon Dioxide 26 mmol/L (22-29) 04/13/24 Calcium 9.1 mg/dL (8.4-10.2) 04/13/24 AST 15 U/L (5-31) 04/13/24 ALT 21 U/L (0-31) 04/13/24 Total Protein 7.2 g/dL (6.5-8.0) 04/13/24 Albumin 3.9 g/dL (3.5-5.0) 04/13/24 PFSH Medical History Pes planus of both feet Family history of systemic lupus erythematosus (SLE) in mother Pain in joint involving multiple sites Obesity Chronic allergic rhinitis BUZZ (obstructive sleep apnea) Asthma Asthma Hypothyroidism Ocular hypertension Prolactinoma Cervical lymphadenopathy Vitamin D deficiency Andrews's disease Microprolactinoma Generalized headaches Anxiety Eczema PCOS (polycystic ovarian syndrome) Pituitary microadenoma with hyperprolactinemia Hypothyroid Asthma Surgical History No history of previous surgery Family History Paternal Grandmother Diabetes Father Asthma Mental health disorder Sister Asthma Mental health disorder Mother Mental health disorder Other Arthritis Social History Housing: House Alcohol intake: never Patient Tobacco Use Status: Never used Tobacco e-Cigarette/Vaping Use: Never Used Second Hand Smoke Exposure: No service: No Current occupational status: unemployed Sexual orientation: Straight/Heterosexual Gender identity: Female Cognitive needs: No Hearing needs: No Vision needs: Yes Female Reproductive History Menstrual Age of Menarche: 12 Assessment & Plan Assessment & Plan (1) Morbid obesity with BMI of 45.0-49.9, adult: Comment: BMI on 04/2023 at 52.3 , bmi on 04/2024 at 49.3), 08/29 50.5 (09/26), 52. (12/2024) Code(s): E66.01 - Morbid (severe) obesity due to excess calories; Z68.42 - Body mass index [BMI] 45.0-49.9, adult Category: Medical Plan: wt: 122 kg (121 kg -07/2022) 117 kg (08/29), 118 kg (09/26), 10/27, 122 kg (12/27) Est kcal needs as per MSJ: 2200 (40% carb, 30% protein/fat) Est fluid needs as per 25-30 ml/d: 3500 Est prot per day as per 1 g/kg bw: 115 Recommend fiber intake : 8-10 g per day and gradually increase to 25-28 g per day for women and 35-38 g for men or as tolerated Recommend sodium intake per day : less than 2000 mg REVIEWED IMPORTANCE OF MEAL ROUTINE/PHYSICAL ACTIVITY ROUTINE and consistency:R,V Educated patient on: ( R = reviewed V = verbalizes understanding N/R = needs review N/A = not applicable * practice mindful eating strategies, eating slowly, savoring food: R, * Food sources of carbohydrate, adequate serving sizes and its role in various health conditions: R * Differences between complex carbohydrates a simple carbohydrates, role of fiber in diet: R * Differences between types of fats and role in diet (mono on saturated fat fatty acids, saturated fatty acids, trans fats): R * Food sources of sodium in salt and healthy modifications for heart health in kidney health: NR * include fruit as snack, reviewed portion sizes : R * Vitamins and minerals: R * Healthy plate method concept: R * Physical activityy: Benefits a precaution: R - * Hydration : R, V * Choosing naturally wheat free foods, when making meals at home or eating out or choosing frozen meals : R Patient Instructions: Set a meal routine , 10 am breakfast, 12:30 pm snack, 2 pm lunch, 4:30 pm snack 6 pm dinner 45 g of carbs/3-4 oz protein/1c non dairy per meal 3 meals/day and 20 g as snack - choose a fruit as a snack see meal ideas as reference Coding Level of Care Code Nutr Indiv Subseq (71780) Diagnoses Morbid obesity with BMI of 45.0-49.9, adult E66.01; Z68.42 Time Spent (min) 20
== END 2024-12-05 09:07 | disposition home or self-care (01) ==
LOC: HO.ENCR 08:18
PROVIDERS: PCP Nurse Practitioner Family; Visit Provider Dietitian, Registered
DX: E66.01 Morbid (severe) obesity due to excess calories (principal); Z68.42 Body mass index [BMI] 45.0-49.9, adult

== ENCOUNTER → 2024-12-05 08:17 | Outpatient (BNVA) | payer OTHER, SELFPAY | PROVIDERS: PCP Nurse Practitioner Family; Visit Provider Dietitian, Registered | DX: E66.01 Morbid (severe) obesity due to excess calories (principal); Z68.43 Body mass index [BMI] 50.0-59.9, adult | CPT/HCPCS: 97803 ==

== ENCOUNTER 2025-01-25 08:59 | Outpatient (REF) | payer OTHER, SELFPAY ==
[2025-01-25 11:15] LABS: Alanine Aminotransferase 34 U/L (0-31); Albumin Level 4.2 g/dL (3.5-5.0); Alkaline Phosphatase 60 U/L (39-117); Aspartate Amino Transferase 28 U/L (5-31); Total Protein 7.2 g/dL (6.5-8.0)
== END 2025-01-25 09:00 | disposition home or self-care (01) ==
LOC: HO.LAB 08:59
PROVIDERS: PCP Nurse Practitioner Family; Visit Provider Psychiatry & Neurology Neurology
DX: G40.109 Localization-related (focal) (partial) symptomatic epilepsy and epileptic syndromes with simple partial seizures, not intractable, without status epilepticus (principal)
CPT/HCPCS: 36415; 80076

== ENCOUNTER 2025-01-25 08:59 | Outpatient (AMB) | payer OTHER, SELFPAY ==
--- NOTE | 2025-01-25 09:11 | A.OFFVIS_ITS ---
Intake Visit Reasons: 6 mnts f/u Allergies peanut Allergy (Intermediate, Verified 09/13/24 10:05) Itching tree nut Allergy (Intermediate, Verified 09/13/24 10:05) Itching cat dander (CATS) Allergy (Unknown, Verified 03/01/24 08:11) RASH, WHEEZING dog dander (DOGS) Allergy (Unknown, Verified 03/01/24 08:11) RASH, WHEEZING egg Allergy (Unknown, Verified 03/01/24 08:11) Itching wheat Allergy (Unknown, Verified 03/01/24 08:11) Gastrointestinal Upset montelukast Adverse Reaction (Mild, Verified 03/01/24 08:11) Depression milk Adverse Reaction (Unknown, Verified 03/01/24 08:11) Gastrointestinal Upset Medication List - Last Reconciled 01/25/25 by Connor Pearson MD albuterol sulfate 2.5 mg (3 mL) inhalation Q6H PRN 30 days albuterol sulfate 90 mcg/actuation (Ventolin HFA) 2 puffs inhalation Q6H PRN atomoxetine 25 mg PO QAM azithromycin 500 mg PO DAILY 5 days zskjkxbfgm-qvtkmpgndnqhv-oykp 50-325-40 mg tabs PO cholecalciferol (vitamin D3) 50 mcg PO DAILY cyclosporine 0.05% (Restasis) drps ophthalmic (eye) desog-e.estradiol/e.estradiol 0.15-0.02 mgx21 /0.01 mg x 5 (Kariva (28)) 1 tab PO DAILY divalproex ER 250 mg PO DAILY epinephrine (EpiPen 2-Michael) 0.3 mg (0.3 mL) IM Q10M PRN 30 days fluticasone propionate 50 mcg/actuation 1 spray intranasal DAILY hydrocortisone 2.5% topical lamotrigine 25 mg PO BID levocetirizine 5 mg PO BID 90 days levothyroxine 112 mcg PO DAILY meclizine 25 mg PO DAILY PRN 20 days methylprednisolone (Medrol (Michael)) PO PER PKG DIR 6 days metoprolol succinate ER 12.5 mg (1/2 x 25 mg) PO DAILY 90 days metronidazole 0.75% 1 appl topical BID mometasone-formoterol 200-5 mcg/actuation (Dulera) 2 puffs inhalation Q12H 30 days nebulizers As directed omalizumab (Xolair) 300 mg (2 mL) subcut Q2W 30 days omalizumab (Xolair) 75 mg (0.5 mL) subcut Q2W spironolactone 50 mg PO BID tiotropium bromide 2.5 mcg/actuation (Spiriva Respimat) 2 puffs inhalation DAILY 30 days tretinoin 0.025% 1 appl topical DAILY 30 days venlafaxine 75 mg PO Q12H 90 days HPI Comments Details: 24 yo woman with obesity, asthma, PCOS, high prolactin level with previous suggestion of a pituitary adenoma but later scans did not confirm it, depression, anxiety, PTSD, OCD/ADHD, migraine headaches, and complex partial secondarily generalized seizure disorder (spells causing dilated pupils, eyes jerking, impending doom feeling, staring, quietness, and left hand doing repetitive motion for a minute or two, with confusion, amnesia, and tiredness. in 2020, she had the first episode when she fell, passed out, and lost bowel co ntrol). An EEG in 2023 revealed left temporal paroxysmal theta discharges. She was doing all right with a relative controlled of headaches and no further seizure-like spell. Recently she has been crocheting and started having pain in her right wrist area the base of thumb. She was wearing a brace. There was no tingling and numbness type of complaint. [facility] Medical History (Updated 01/25/25 @ 09:16 by Connor Pearson MD) PCOS (polycystic ovarian syndrome) Insomnia Migraine without aura Seizure disorder Pes planus of both feet Family history of systemic lupus erythematosus (SLE) in mother Pain in joint involving multiple sites Obesity Chronic allergic rhinitis BUZZ (obstructive sleep apnea) Asthma Asthma Hypothyroidism Ocular hypertension Prolactinoma Cervical lymphadenopathy Vitamin D deficiency Andrews's disease Microprolactinoma Generalized headaches Anxiety Eczema PCOS (polycystic ovarian syndrome) Pituitary microadenoma with hyperprolactinemia Hypothyroid Asthma Surgical History No history of previous surgery Family History Paternal Grandmother Diabetes Father Asthma Mental health disorder Sister Asthma Mental health disorder Mother Mental health disorder Other Arthritis Social History Housing: House Alcohol intake: never Patient Tobacco Use Status: Never used Tobacco e-Cigarette/Vaping Use: Never Used Second Hand Smoke Exposure: No service: No Current occupational status: unemployed Sexual orientation: Straight/Heterosexual Gender identity: Female Cognitive needs: No Hearing needs: No Vision needs: Yes Female Reproductive History Menstrual Age of Menarche: 12 Review of Systems Const Details: Constitutional:?No fever, chills, fatigue, weight loss, or night sweats. HEENT:?No headache, vision changes, hearing loss, nasal congestion, sore throat. Neurological:?No dizziness, syncope, seizures, numbness, tingling, weakness, tremors, memory loss. Psychiatric:?No anxiety, depression, mood swings, sleep disturbance, or hallucinations. Endocrine:?No heat/cold intolerance, polydipsia, polyuria, or hair/skin changes. Hematologic/Lymphatic:?No easy bruising, bleeding, or lymphadenopathy. Integumentary (Skin):?No rash, lesions, itching, or color changes. ? Physical Exam Neuro Other: Mental Status: Alert and oriented to person, place, and time. Normal attention. Normal spontaneous speech, fluency, and comprehension. No obvious issues with mood and memory. Affect is appropriate. Cranial Nerves: CN II: Visual [place] full to confrontation, visual acuity intact. CN III, IV, : Pupils equal, round, reactive to light and accommodation. Extraocular movements are normal. CN V: Facial sensation is normal. CN VII: Facial movements symmetrical. CN VIII: Hearing intact to bedside conversation is normal. CN IX, X: Palate elevates symmetrically. CN XI: Shoulder shrug and head turn symmetrical. CN XII: Tongue midline without atrophy or fasciculations. Extrapyramidal: Full facial expressions and blinking. No rigidity. Movements are appropriate with no tremor or abnormality. Speech: Normal; no dysarthria or tremor. Assessment & Plan Assessment & Plan (1) Temporal lobe epilepsy syndrome: Comment: EEG at off in Jun 2024: L temp paroxysmal theta MRI brain WWO at [facility] in November 2022: No definite pituitary lesion Routine EEG at [facility] in Oct 1999: WNL MRI brain WWO at [facility] in Sep 2020: heterogenous enhancement in pituitary w/o a discrete mass, no change from before, prominent lymphadenopathy MRI brain [facility] at [facility] in Feb 2020: Pit adenoma US neck at [facility] in Sep 2020: normal looking lymph nodes (reported). Code(s): G40.109 - Localization-related (focal) (partial) symptomatic epilepsy and epileptic syndromes with simple partial seizures, not intractable, without status epilepticus Category: Medical (2) Migraine without aura: Comment: Meds tried for headaches: Topamax, naproxen, propranalol, verapamil, venlafaxine, amitryptiline, emgality, nortryptiline Code(s): G43.009 - Migraine without aura, not intractable, without status migrainosus Category: Medical Qualifiers: Status migrainosus presence: without status migrainosus Intractability: not intractable Qualified Code(s): G43.009 - Migraine without aura, not intractable, without status migrainosus Plan Impression: a: 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 Use OTC pain med as needed. Nylon half glove/brace for relief Orders: Orders Liver Panel Today G40.109 - Localization-related (focal) (partial) symptomatic epilepsy and epileptic syndromes with simple partial seizures, not intractable, without status epilepticus Medications: New divalproex ER 250 mg PO DAILY 180 tabs 1RF Coding Level of Care Code Tele Est Pt Level 4 (71045) Diagnoses Temporal lobe epilepsy syndrome G40.109 Migraine without aura and without status migrainosus, not intractable G43.009 Status migrainosus presence: without status migrainosus Intractability: not intractable
== END 2025-01-25 09:28 | disposition home or self-care (01) ==
LOC: HO.HSM 08:59
PROVIDERS: PCP Nurse Practitioner Family; Visit Provider Psychiatry & Neurology Neurology
DX: G40.109 Localization-related (focal) (partial) symptomatic epilepsy and epileptic syndromes with simple partial seizures, not intractable, without status epilepticus (principal); G43.009 Migraine without aura, not intractable, without status migrainosus
CPT/HCPCS: 99214

== ENCOUNTER 2025-02-20 08:18 | Outpatient (AMB) | payer OTHER, SELFPAY ==
[2025-02-20 08:38] VITALS: BMI 51.7
--- NOTE | 2025-02-20 08:38 | MHC.AMNUTRGE ---
VS Expanded 02/20/25 08:38 Height 5 ft Weight 264 lb 15.93 oz BMI 51.7 Intake Visit Reasons: Obesity Allergies peanut Allergy (Intermediate, Verified 09/13/24 10:05) Itching tree nut Allergy (Intermediate, Verified 09/13/24 10:05) Itching cat dander (CATS) Allergy (Unknown, Verified 03/01/24 08:11) RASH, WHEEZING dog dander (DOGS) Allergy (Unknown, Verified 03/01/24 08:11) RASH, WHEEZING egg Allergy (Unknown, Verified 03/01/24 08:11) Itching wheat Allergy (Unknown, Verified 03/01/24 08:11) Gastrointestinal Upset montelukast Adverse Reaction (Mild, Verified 03/01/24 08:11) Depression milk Adverse Reaction (Unknown, Verified 03/01/24 08:11) Gastrointestinal Upset Nutrition Presentation Details: Pt presents for MNT f/u for obesity Pt reports restarting to eliminate allergens (gluten, dairy containing foods) from the diet Reports focusing on healthy meal options to prepare at dinner for self and fam member Has started to go for walks, 10 minutes daily for the past 2 weeks, working on making it a routine Typical meal 12-1 pm Tuna with GF bread, water, or juice diluted with water 4 pm : smoothie or GF pretzels 8pm white rice with veggies , chicken, water or lemonade walking daily 10 minutes food frequency water: 80 oz /day fruits: 1/day in smoothies fish: 2 x/wk BS Monitoring Most Recent Diabetes Results: AST, (5-31) 28 U/L 01/25/25 ALT, (0-31) 34 U/L H 01/25/25 Total Protein, (6.5-8.0) 7.2 g/dL 01/25/25 Albumin, (3.5-5.0) 4.2 g/dL 01/25/25 CIA-Gcxrrtc-Uf.Jeor Equation Height: 5 ft Weight: 265 lb Resting Metabolic Rate: 1869.32 Calculated Activity Level: Sedentary Calories Needed to Maintain Weight: 2243.18 [facility] Medical History (Updated 02/22/25 @ 10:43 by Georgie Long, RD, LDN) PCOS (polycystic ovarian syndrome) Insomnia Migraine without aura Seizure disorder Pes planus of both feet Family history of systemic lupus erythematosus (SLE) in mother Pain in joint involving multiple sites Obesity Chronic allergic rhinitis BUZZ (obstructive sleep apnea) Asthma Asthma Hypothyroidism Ocular hypertension Prolactinoma Cervical lymphadenopathy Vitamin D deficiency Andrews's disease Microprolactinoma Generalized headaches Anxiety Eczema PCOS (polycystic ovarian syndrome) Pituitary microadenoma with hyperprolactinemia Hypothyroid Asthma Surgical History No history of previous surgery Family History Paternal Grandmother Diabetes Father Asthma Mental health disorder Sister Asthma Mental health disorder Mother Mental health disorder Other Arthritis Social History (Reviewed 09/13/24 @ 10:04 by Lizabeth Fair [facility]) Housing: House Alcohol intake: never Patient Tobacco Use Status: Never used Tobacco e-Cigarette/Vaping Use: Never Used Second Hand Smoke Exposure: No service: No Current occupational status: unemployed Sexual orientation: Straight/Heterosexual Gender identity: Female Cognitive needs: No Hearing needs: No Vision needs: Yes Female Reproductive History Menstrual Age of Menarche: 12 Assessment & Plan Assessment & Plan (1) Morbid obesity with BMI of 45.0-49.9, adult: Comment: BMI on 04/2023 at 52.3 , bmi on 04/2024 at 49.3), 51.8 (02/26) Code(s): E66.01 - Morbid (severe) obesity due to excess calories; Z68.42 - Body mass index [BMI] 45.0-49.9, adult Category: Medical Plan: Dx: excessive calorie intake due to lack of meal routine ,complicated by food allergens and physical inactivity evidenced by food recall/satements and BMI at 51.8 on 02/26 Topics to discuss today and future visits - Learn calories and food composition for overall health -meal planning and portion sizes - Reinforce avoiding allergens and incorporating alternatives - physical acitivity - wt loss 3-5 lbs less per month Wt: 120 Kg ( 02/26 ) Est kcal needs as per MSJ: 2200 (40% carb, 30% protein/fat) Est fluid needs as per 25-30 ml/d: 3600 Est prot per day as per 1 g/kg bw: 120 Recommend fiber intake : 8-10 g per day and gradually increase to 25-28 g per day for women and 35-38 g for men or as tolerated Recommend sodium intake per day : less than 2300 mg Educated patient on: ( R = reviewed V = verbalizes understanding N/R = needs review N/A = not applicable Food sources of carbohydrate, adequate serving sizes and its role in various health conditions GF/DAIRy free: R Differences between complex carbohydrates a simple carbohydrates, role of fiber in diet: R Lean protein sources of foods: R Differences between types of fats and role in diet (mono on saturated fat fatty acids, saturated fatty acids, trans fats): R V N/R Food sources of sodium in salt and healthy modifications for heart health in kidney health: R V R/V Vitamins and minerals: R Healthy plate method concept: R Physical activity: Benefits a precaution: R Patient Instructions: Increase walk to 20 minutes daily Continue working on dinner modifications, total carb 60 g following healthy plate method - see meal ideas Coding Level of Care Code Nutr Indiv Subseq (22399) Diagnoses Morbid obesity with BMI of 45.0-49.9, adult E66.01; Z68.42 Time Spent (min) 20
[2025-02-22 10:50] VITALS: BMI 51.7
== END 2025-02-20 09:03 | disposition home or self-care (01) ==
LOC: HO.ENCR 08:19
PROVIDERS: PCP Nurse Practitioner Family; Visit Provider Dietitian, Registered
DX: E66.01 Morbid (severe) obesity due to excess calories (principal); Z68.42 Body mass index [BMI] 45.0-49.9, adult

== ENCOUNTER → 2025-02-20 08:18 | Outpatient (BNVA) | payer OTHER, SELFPAY | PROVIDERS: PCP Nurse Practitioner Family; Visit Provider Dietitian, Registered | DX: E66.01 Morbid (severe) obesity due to excess calories (principal); Z68.42 Body mass index [BMI] 45.0-49.9, adult | CPT/HCPCS: 97803 ==

== ENCOUNTER 2025-03-23 09:49 | Outpatient (AMB) | payer OTHER, SELFPAY ==
[2025-03-23 09:52] VITALS: BP 120/68; PULSE 85; O2SAT 98; BMI 52.3
--- NOTE | 2025-03-23 09:52 | MHC.OFFVIS ---
Vital Signs 03/23/25 09:52 Height 5 ft Weight 267 lb 13.786 oz BMI 52.3 BP 120/68 Blood Pressure Location Lt radial Position Sitting Pulse 85 Pulse Source Pulse Oximeter Pulse Oximetry (%) 98 Oxygen Delivery Method Room Air Intake Visit Reasons: Asthma Clinical Laboratory Technologist Required: No Allergies peanut Allergy (Intermediate, Verified 03/23/25 09:56) Itching tree nut Allergy (Intermediate, Verified 03/23/25 09:56) Itching cat dander (CATS) Allergy (Unknown, Verified 03/23/25 09:56) RASH, WHEEZING dog dander (DOGS) Allergy (Unknown, Verified 03/23/25 09:56) RASH, WHEEZING egg Allergy (Unknown, Verified 03/23/25 09:56) Itching wheat Allergy (Unknown, Verified 03/23/25 09:56) Gastrointestinal Upset montelukast Adverse Reaction (Mild, Verified 03/23/25 09:56) Depression milk Adverse Reaction (Unknown, Verified 03/23/25 09:56) Gastrointestinal Upset HPI Comments Details: The patient is a 24 year woman with known lifelong history of asthma. She has been followed closely by Allergy and immunology. She has been on allergy shots and subsequently was taken off because her asthma to active and she was placed on Xolair. She does and give herself her own Xolair every 4 weeks. She is not sure about the dose. She typically does 2 injections. She also takes Advair and Spiriva. These medications have been helpful. She still needs her rescue inhaler either daily or every other day which is too much. She also gets short of breath with activity. The patient also complains of daytime drowsiness. She does have headaches in the morning. There was documented snoring. The patient does have an elevated [place] score of 14/24. She was supposed to have a sleep study but never followed through. At this point will go ahead and request a sleep study for her. 08/31/2022 the patient is here for a pulmonary follow-up visit. She continues to use her inhalers as prescribed. She has had to use her rescue inhaler more often. She continues with Xolair every 4 weeks. The patient did have blood work done her IgE levels noted to 429 and does have significant allergies noted. She is also wondering about food allergies. She is feeling like some of the foods that she is eating have been activating her asthma as well. Therefore she can have additional allergy testing for the foods that may be precipitating her symptoms as well meantime will go ahead and adjust her Xolair from every 4 weeks to every 2 weeks. Should need a maximum dose based on her weight and also the level of her IgE. She is going to continue with the Advair and the Spiriva. She may be a good candidate for triple therapy. When she is running out of medications she can always call we can send her Trelegy to the pharmacy. She did have a sleep study. No evidence of any significant sleep apnea this is reassuring. She knows not to sleep some worse on the right side where she had more hypopneas episodes. In addition to this the patient also had PFTs done demonstrating normal lung capacity which is reassuring. She did have an elevated DLCO above normal therefore exposure to exogenous her monoxide needs to be monitored. She does state that she does have some secondhand smoke exposure. 07/23/2023 the patient is here for a pulmonary follow-up visit. The patient overall has been doing fair. She has had worsening respiratory symptoms the last few months. Although is phenotype season for viruses in the cold air. She is has required prednisone. The patient has continued on the Xolair. The Xolair has been partially helpful. Seems to help her the eczema in her allergies but tends to not help the asthma as much. The patient has had blood work in the past demonstrating some degree of eosinophilia along with the elevated IgE. Therefore, I do believe that she will do better on Dupixent. She has already been on Xolair couple years with only partial response. In addition to that we did try putting her on Trelegy but it would not cover. Therefore, will go ahead and optimize respiratory therapy by increasing her Advair to the maximum dose and she can continue the Spiriva. I did give her information about Dupixent. She will let us know if she wants to start it. She will have to do blood work. Otherwise will talk about her when she returns in the springtime. 11/12/2023 the patient is here for pulmonary follow-up visit. Overall she is doing better. She is now on Dulera and Spiriva. She continues on the Xolair every 2 weeks. Seems to be helpful. In addition to that the eczema appears to be helpful in doing better overall. We did talk about Dupixent during the last time this point the patient feels comfortable with current regimen so therefore will hold off on Dupixent. She does carry her EpiPen. She has never had to use it which is reassuring. There was also question of sleep apnea. She did have a home sleep study back in August 2022 demonstrating no evidence of any significant sleep apnea. If the patient continues have daytime drowsiness or any concerns we can also consider repeating the study. The patient follow-up in 8-10 months. If she has any difficulties prior to that she will call for an earlier assessment. 09/13/2024 the patient is here for pulmonary follow-up visit. Overall she is doing okay. She started developing worsening cough the last couple weeks. Some chest tightness. She has been using nebulizer rescue inhaler more often. In the meantime she continues on the Dulera and the Spiriva seemed to be working well. We did talk about considering changing her to a triple inhaler but the patient right now is okay on what she has. She will consider switching in the future. She does not like the powder inhalers the Trelegy would not be a good option anyway will can always consider breztri. In addition she continues on her Xolair. I will make sure she has an updated EpiPen. Will start her on a course of Z-Michael. Right now her respiratory exam is okay just with minimal expand expiratory wheezing and therefore I do not believe that she needs any steroids right now but I will send her a Medrol Michael that she can start if her symptoms were to worsen. Otherwise patient is doing well will follow-up in a year's time. 03/23/2025 the patient is here for a pulmonary follow-up visit. She does complain of increasing asthma symptoms. She has been using the Xolair and also the Dulera and the Spiriva. Although is still feels like she is not getting completely free of her asthma symptoms. The patient continues use her rescue inhaler few times a week to try to give her some additional relief. Will go ahead and request additional blood work to assess her IgE levels and also here eosinophils to see if we need to adjust the Xolair or if she needs to consider a different biologic regimen. Respiratory javed the patient is sounds okay just slow diminished. I do believe that will make her regimen little easier by switching over to Trelegy in order for her to have better proper coverage. Importance [facility] Medical History (Updated 03/24/25 @ 21:18 by Fausto Long MD) Radial styloid tenosynovitis PCOS (polycystic ovarian syndrome) Insomnia Migraine without aura Seizure disorder Pes planus of both feet Family history of systemic lupus erythematosus (SLE) in mother Pain in joint involving multiple sites Obesity Chronic allergic rhinitis BUZZ (obstructive sleep apnea) Asthma Asthma Hypothyroidism Ocular hypertension Prolactinoma Cervical lymphadenopathy Vitamin D deficiency Andrews's disease Microprolactinoma Generalized headaches Anxiety Eczema PCOS (polycystic ovarian syndrome) Pituitary microadenoma with hyperprolactinemia Hypothyroid Asthma Surgical History No history of previous surgery Family History Paternal Grandmother Diabetes Father Asthma Mental health disorder Sister Asthma Mental health disorder Mother Mental health disorder Other Arthritis Social History Housing: House Alcohol intake: never Patient Tobacco Use Status: Never used Tobacco e-Cigarette/Vaping Use: Never Used Second Hand Smoke Exposure: No service: No Current occupational status: unemployed Sexual orientation: Straight/Heterosexual Gender identity: Female Cognitive needs: No Hearing needs: No Vision needs: Yes Female Reproductive History Menstrual Age of Menarche: 12 Review of Systems Const Reports daytime sleepiness, Denies headache(s) and Reports snoring Eyes Denies change in vision ENT Denies change in voice, Denies headache(s), Reports nasal congestion and Reports nasal discharge Card Denies chest pain Resp Reports chest congestion, Reports cough, Reports snoring and Reports wheezing GI Reports no additional complaints Musc Reports no additional complaints Skin/Breast Denies rash Neuro Reports no additional complaints and Denies headache(s) Endo Denies flushing Jose David/Lymph Denies easy bruising Aller/Immun Reports wheezing Physical Exam Vital Signs: Last Vital Signs Pulse 85 03/23/25 09:52 BP 120/68 03/23/25 09:52 Pulse Ox 98 03/23/25 09:52 Oxygen Delivery Method Room Air 03/23/25 09:52 BMI result Body Mass Index 52.3 Const General: comfortable HEENT Head: Yes normocephalic Eyes General: appearance normal, both eyes and all related structures Neck Neck: Yes supple Chest Chest palpation & inspection: normal inspection of the chest Resp Effort & Inspection: normal respiratory effort and No prolonged expiratory phase Auscultation: no wheezes and diminished lung sounds Cardio Rate: regular rate Rhythm: regular rhythm Heart sounds: S1 normal heart sound present and S2 normal heart sound present GI Auscultation: normal bowel sounds Skin General skin exam: no rashes or lesions noted Extrem General: Yes no clubbing, cyanosis or edema Assessment & Plan Assessment & Plan (1) Asthma: Code(s): J45.909 - Unspecified asthma, uncomplicated Category: Medical Qualifiers: Asthma complication type: uncomplicated Asthma persistence: persistent Asthma severity: severe Qualified Code(s): J45.50 - Severe persistent asthma, uncomplicated (2) Chronic allergic rhinitis: Code(s): J30.9 - Allergic rhinitis, unspecified Category: Medical (3) BUZZ (obstructive sleep apnea): Comment: No BUZZ on home PSG Code(s): G47.33 - Obstructive sleep apnea (adult) (pediatric) Category: Medical Plan stop Dulera stop Spiriva start trelegy 200 JENIFFER as needed anti histamine therapy bloodwork >adjusting biologic continue Xolair 375mg Q2 weeks. Consider Dupixent. Info provided to the patient. She will call us if she wants to switch F/U 4-6 months Orders: Orders Immunoglobulin E 03/23/25 J45.51 - Severe persistent asthma with (acute) exacerbation Complete Blood Count Auto Diff 03/23/25 J45.51 - Severe persistent asthma with (acute) exacerbation Erythrocyte Sedimentation Rate 03/23/25 J45.51 - Severe persistent asthma with (acute) exacerbation Medications: New [id number] 200-62.5-25 mcg (Trelegy Ellipta) 1 inh inhalation DAILY 60 ea 12RF 30 days melatonin 5 mg PO BEDTIME PRN 30 tabs 8RF sleep 30 days Coding Level of Care Code Est Pt Level 4 (68870) Diagnoses Severe persistent asthma without complication J45.50 Asthma complication type: uncomplicated Asthma persistence: persistent Asthma severity: severe Chronic allergic rhinitis J30.9 BUZZ (obstructive sleep apnea) G47.33 Time Spent (min) 16
== END 2025-03-23 10:25 | disposition home or self-care (01) ==
LOC: HO.HPS 09:50
PROVIDERS: PCP Nurse Practitioner Family; Visit Provider Hospitalist
DX: J45.50 Severe persistent asthma, uncomplicated (principal); J30.9 Allergic rhinitis, unspecified; G47.33 Obstructive sleep apnea (adult) (pediatric)
CPT/HCPCS: 99214

== ENCOUNTER → 2025-03-23 09:49 | Outpatient (BNVA) | payer OTHER, SELFPAY | PROVIDERS: PCP Nurse Practitioner Family; Visit Provider Hospitalist | DX: J45.50 Severe persistent asthma, uncomplicated (principal); J30.9 Allergic rhinitis, unspecified; G47.33 Obstructive sleep apnea (adult) (pediatric) | CPT/HCPCS: 99212 ==

== ENCOUNTER 2025-04-17 08:21 | Outpatient (AMB) | payer OTHER, SELFPAY ==
[2025-04-17 10:51] VITALS: BMI 49.8
--- NOTE | 2025-04-17 10:51 | A.OFFVIS_ITS ---
VS Expanded 04/17/25 10:51 Height 5 ft Weight 255 lb BMI 49.8 Intake Visit Reasons: obesity Allergies peanut Allergy (Intermediate, Verified 03/23/25 09:56) Itching tree nut Allergy (Intermediate, Verified 03/23/25 09:56) Itching cat dander (CATS) Allergy (Unknown, Verified 03/23/25 09:56) RASH, WHEEZING dog dander (DOGS) Allergy (Unknown, Verified 03/23/25 09:56) RASH, WHEEZING egg Allergy (Unknown, Verified 03/23/25 09:56) Itching wheat Allergy (Unknown, Verified 03/23/25 09:56) Gastrointestinal Upset montelukast Adverse Reaction (Mild, Verified 03/23/25 09:56) Depression milk Adverse Reaction (Unknown, Verified 03/23/25 09:56) Gastrointestinal Upset Nutrition Presentation Details: Pt presents for MNT for obesity Pt reports working on choosing healthier food options and working on avoiding allergens Reports feeling better when avoiding food allergens (wheat, eggs, dairy, tree nuts) fluids 24 oz/day (water mainly) fruits: 0-1/d dairy : choosing alternate due to intolerance to cows milk vegetables: daily 3 -4 servings/d fish: 0-1/wk eating out 1-2 x/wk physical activity: walking 10-15 min BS Monitoring Most Recent Diabetes Results: AST, (5-31) 28 U/L 01/25/25 ALT, (0-31) 34 U/L H 01/25/25 Total Protein, (6.5-8.0) 7.2 g/dL 01/25/25 Albumin, (3.5-5.0) 4.2 g/dL 01/25/25 [facility] Medical History (Updated 04/17/25 @ 10:58 by Georgie Long, RD, LDN) Radial styloid tenosynovitis PCOS (polycystic ovarian syndrome) Insomnia Migraine without aura Seizure disorder Pes planus of both feet Family history of systemic lupus erythematosus (SLE) in mother Pain in joint involving multiple sites Obesity Chronic allergic rhinitis BUZZ (obstructive sleep apnea) Asthma Asthma Hypothyroidism Ocular hypertension Prolactinoma Cervical lymphadenopathy Vitamin D deficiency Andrews's disease Microprolactinoma Generalized headaches Anxiety Eczema PCOS (polycystic ovarian syndrome) Pituitary microadenoma with hyperprolactinemia Hypothyroid Asthma Surgical History No history of previous surgery Family History Paternal Grandmother Diabetes Father Asthma Mental health disorder Sister Asthma Mental health disorder Mother Mental health disorder Other Arthritis Social History Housing: House Alcohol intake: never Patient Tobacco Use Status: Never used Tobacco e-Cigarette/Vaping Use: Never Used Second Hand Smoke Exposure: No service: No Current occupational status: unemployed Sexual orientation: Straight/Heterosexual Gender identity: Female Cognitive needs: No Hearing needs: No Vision needs: Yes Female Reproductive History Menstrual Age of Menarche: 12 Assessment & Plan Assessment & Plan (1) Morbid obesity with BMI of 45.0-49.9, adult: Comment: BMI on 04/2023 at 52.3 , 49.8 (04/28) Code(s): E66.01 - Morbid (severe) obesity due to excess calories; Z68.42 - Body mass index [BMI] 45.0-49.9, adult Category: Medical Plan: Dx: excessive calorie intake due to lack of meal routine ,complicated by food allergens and physical inactivity evidenced by food recall/statements and BMI at 51.8 on 02/26, Progress wt: 49.8 kg on 04/28 Topics to review - Learn calories and food composition for overall health -hydration -meal planning and portion sizes - Reinforce avoiding allergens and incorporating alternatives - physical activity - wt loss 3-5 lbs less per month Wt: 120 Kg ( 02/26 ), 116 kg (04/28) Est kcal needs as per MSJ: 2200 -500 = 1700 (40% carb, 30% protein/fat) Est fluid needs as per 25-30 ml/d: 3500 Est prot per day as per 1 g/kg bw: 120 Recommend fiber intake : 8-10 g per day and gradually increase to 25-28 g per day for women and 35-38 g for men or as tolerated Recommend sodium intake per day : less than 2300 mg Educated patient on: ( R = reviewed V = verbalizes understanding N/R = needs review N/A = not applicable * Food sources of carbohydrate, adequate serving sizes and its role in various health conditions GF/DAIRy free: R * Differences between complex carbohydrates a simple carbohydrates, role of fiber in diet: R * Lean protein sources of foods: R * Differences between types of fats and role in diet (mono on saturated fat fatty acids, saturated fatty acids, trans fats): R * Food sources of sodium in salt and healthy modifications for heart health in kidney health: R V R/V * Vitamins and minerals: R * Healthy plate method concept: R * Physical activity: Benefits a precaution: R Patient Instructions: Choose low sugar beverages, keeping hydrated , 8-10 cups of low sugar beverages /day Choose low fat food options (steam, remove visible fats, choose home made meals goal weight by next follow up 250 lbs Coding Level of Care Code Nutr Indiv Subseq (49353) Diagnoses Morbid obesity with BMI of 45.0-49.9, adult E66.01; Z68.42 Time Spent (min) 30
== END 2025-04-17 08:57 | disposition home or self-care (01) ==
LOC: HO.ENCR 08:22
PROVIDERS: PCP Nurse Practitioner Family; Visit Provider Dietitian, Registered
DX: E66.01 Morbid (severe) obesity due to excess calories (principal); Z68.42 Body mass index [BMI] 45.0-49.9, adult

== ENCOUNTER → 2025-04-17 08:21 | Outpatient (BNVA) | payer OTHER, SELFPAY | PROVIDERS: PCP Nurse Practitioner Family; Visit Provider Dietitian, Registered | DX: Z71.3 Dietary counseling and surveillance (principal) | CPT/HCPCS: 97803 ==

== ENCOUNTER 2025-04-26 09:25 | Outpatient (AMB) | payer OTHER, SELFPAY ==
--- NOTE | 2025-04-26 09:26 | A.OFFVIS_ITS ---
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 Extruding Department Supervisor: Extruding Department Supervisor Present (Dariela) Accompanied by: Self / Same As Patient Allergies peanut Allergy (Intermediate, Verified 04/26/25 09:52) Itching tree nut Allergy (Intermediate, Verified 04/26/25 09:52) Itching cat dander (CATS) Allergy (Unknown, Verified 04/26/25 09:52) RASH, WHEEZING dog dander (DOGS) Allergy (Unknown, Verified 04/26/25 09:52) RASH, WHEEZING egg Allergy (Unknown, Verified 04/26/25 09:52) Itching wheat Allergy (Unknown, Verified 04/26/25 09:52) Gastrointestinal Upset montelukast Adverse Reaction (Mild, Verified 04/26/25 09:52) Depression milk Adverse Reaction (Unknown, Verified 04/26/25 09:52) Gastrointestinal Upset Medication List - Last Reconciled 04/26/25 by Isidra Grande CNM albuterol sulfate 2.5 mg (3 mL) inhalation Q6H PRN 30 days albuterol sulfate 90 mcg/actuation (Ventolin HFA) 2 puffs inhalation Q6H PRN ijdmovvmzt-rvjsmosevsqzw-xxuc 50-325-40 mg tabs PO cariprazine (Vraylar) PO cholecalciferol (vitamin D3) 50 mcg PO DAILY cyclosporine 0.05% (Restasis) drps ophthalmic (eye) desog-e.estradiol/e.estradiol 0.15-0.02 mgx21 /0.01 mg x 5 (Ruba (28)) 1 tab PO DAILY divalproex ER 250 mg PO DAILY epinephrine (EpiPen 2-Michael) 0.3 mg (0.3 mL) IM Q10M PRN 30 days fluticasone furoate-vilanterol 200-25 mcg/dose (Breo Ellipta) 1 inh inhalation DAILY 30 days fluticasone propionate 50 mcg/actuation 1 spray intranasal DAILY lamotrigine 25 mg PO BID levocetirizine 5 mg PO BID levothyroxine 112 mcg PO DAILY meclizine 25 mg PO DAILY PRN 20 days melatonin 5 mg PO BEDTIME PRN 30 days metoprolol succinate ER 12.5 mg (1/2 x 25 mg) PO DAILY 90 days nebulizers As directed omalizumab (Xolair) 300 mg (2 mL) subcut Q2W 30 days omalizumab (Xolair) 75 mg (0.5 mL) subcut Q2W spironolactone 50 mg PO BID tretinoin 0.025% 1 appl topical DAILY 30 days umeclidinium 62.5 mcg/actuation (Incruse Ellipta) 1 inh inhalation DAILY 30 days venlafaxine 75 mg PO Q12H 90 days Is last menstrual period known: Yes Last menstrual period: 04/09/25 Post menopausal: No Patient : No 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 She is on a number of medication she feels that the mental health medications and therapy are helping a little bit more. She is awaiting a new appointment with a new operations executive at [facility] and plans to talk about the pituitary tumor her thyroid and also weight loss with the new operations executive. She likes crafting and is crocheting currently. She goes for walks every day with her dog. The weight loss is challenging and she fluctuates. She is sexually active with her partner she is on control pills which help manage keeping her periods regular which is important with her PCOS. She is happy on them and they are doing fine she has a history of a seizure disorder as well so she also has a neurologist She said she is on SSI secondary to all of the medical concerns. [facility] Medical History (Updated 04/26/25 @ 10:27 by Isidra Grande CNM) Radial styloid tenosynovitis PCOS (polycystic ovarian syndrome) Insomnia Migraine without aura Seizure disorder Pes planus of both feet Family history of systemic lupus erythematosus (SLE) in mother Pain in joint involving multiple sites Obesity Chronic allergic rhinitis BUZZ (obstructive sleep apnea) Asthma Asthma Hypothyroidism Ocular hypertension Prolactinoma Cervical lymphadenopathy Vitamin D deficiency Andrews's disease Microprolactinoma Generalized headaches Anxiety Eczema PCOS (polycystic ovarian syndrome) Pituitary microadenoma with hyperprolactinemia Hypothyroid Asthma Surgical History No history of previous surgery Family History Paternal Grandmother Diabetes Father Asthma Mental health disorder Sister Asthma Mental health disorder Mother Mental health disorder Other Arthritis Social History Housing: House Alcohol intake: never Patient Tobacco Use Status: Never used Tobacco e-Cigarette/Vaping Use: Never Used Second Hand Smoke Exposure: No service: No Current occupational status: unemployed Sexual orientation: Straight/Heterosexual Gender identity: Female Cognitive needs: No Hearing needs: No Vision needs: Yes Female Reproductive History Menstrual Age of Menarche: 12 Duration of menses: 6-7 days Date of last menstrual period: 04/09/25 control method: pills Total pregnancies: 0 Date of last pap smear: 07/07/21 (negative pap smear) History of abnormal pap smear: No Physical Exam Vital Signs: Last Vital Signs BP 120/72 04/26/25 09:39 BMI result Body Mass Index 49.8 Const General: healthy appearing, comfortable, no acute distress, well developed and alert Nutritional Appearance: average body habitus and obese Orientation/consciousness: patient oriented x3 Limitations: no limitations HEENT Head: Yes normocephalic Neck Neck: Yes normal visual inspection Chest Chest palpation & inspection: normal inspection of the chest Breast/axilla inspection: normal inspection of the breasts and normal inspection of the axillae Breast/axilla palpation: normal palpation of the breasts and normal palpation of the axillae Resp Effort & Inspection: normal respiratory effort GI Other: External speculum exam within normal limits vagina is pink and moist and healthy appearing clear scant healthy appearing mucus. Cervix is pink smooth nulliparous but difficult to visualize well because of adipose even using very long Patricia speculum and asking patient to put her fists underneath her buttocks the cervix is midposition to anterior uterus nontender difficult to feel completely secondary to adipose adnexa nontender as well good muscle tone. Inspection: Yes normal to inspection, No Abdominal wall edema and No distended Palpation (GI): Soft to palpation and nontender General: Yes bladder normal to palpation External Female Exam: normal external appearance and normal appearance of the urethra Speculum Exam - Vagina: normal appearance of the vagina, normal palpation and normal vaginal discharge Speculum Exam - Cervix: normal appearance of the cervix, normal palpation and nontender Bimanual exam- vagina & uterus: normal bimanual exam, normal palpation, uterine size normal, bladder normal to palpation, consistency normal, normal palpation, uterine mobility normal, uterine shape normal, No Cervical tenderness present, non-tender and no cervical motion tenderness Bimanual Exam- Adnexa, other: normal adnexae, no masses, normal and No adnexal tenderness Neuro General: patient oriented x3 Assessment & Plan Assessment & Plan (1) Well woman exam with routine gynecological exam: Code(s): Z01.419 - Encounter for gynecological examination (general) (routine) without abnormal findings Category: Medical (2) Counseling for control, oral contraceptives: Code(s): Z30.09 - Encounter for other general counseling and advice on contraception Category: Medical (3) Cervical cancer screening: Comment: 07/07/21- pap= neg Code(s): Z12.4 - Encounter for screening for malignant neoplasm of cervix Category: Medical (4) control counseling: Code(s): Z30.09 - Encounter for other general counseling and advice on contraception Category: Medical (5) Women's annual routine gynecological examination: Code(s): Z01.419 - Encounter for gynecological examination (general) (routine) without abnormal findings Category: Medical (6) Hypothyroidism: Code(s): E03.9 - Hypothyroidism, unspecified Category: Medical (7) Pituitary microadenoma with hyperprolactinemia: Code(s): D35.2 - Benign neoplasm of pituitary gland; E22.9 - Hyperfunction of pituitary gland, unspecified Category: Medical (8) PCOS (polycystic ovarian syndrome): Code(s): E28.2 - Polycystic ovarian syndrome Category: Medical (9) Microprolactinoma: Code(s): D35.2 - Benign neoplasm of pituitary gland Category: Medical (10) Morbid obesity with BMI of 45.0-49.9, adult: Comment: BMI on 04/2023 at 52.3 , 49.8 (04/28) Code(s): E66.01 - Morbid (severe) obesity due to excess calories; Z68.42 - Body mass index [BMI] 45.0-49.9, adult Category: Medical Plan -----Discussed in this visit the following: healthy balanced diet, regular and consistent exercise, getting recommended health screens, doing the best she can for her particular health concerns, kegel exercises, pap smear screening and followup recommendations, mammography screening and SBE, normal changes in cycles in her life stage--- . Discussed all of her health concerns in general and how they all interact as well, how many of the medications also interact with each other. I will refill her pills discussed that if her operations executive recommends another method of control that would be totally acceptable while she works on her goal of weight loss. I wished her luck with her new endocrinology consultation she plans to talk about the thyroid issues the pituitary tumor and also weight loss I encouraged her to advocate for herself and that this is a wonderful time of her life to achieve better health if she can. Pap smear done with difficulty. Testing also done for gonorrhea chlamydia trichomoniasis bacterial vaginosis and yeast though the discharge appeared completely normal and she declined blood work for HIV and other STIs. Medications: Refilled desog-e.estradiol/e.estradiol 0.15-0.02 mgx21 /0.01 mg x 5 (Ruba (28)) 1 tab PO DAILY 84 tabs 4RF Coding Level of Care Code Est Pt Prev Care 18-39y(24875) Diagnoses Well woman exam with routine gynecological exam Z01.419 Counseling for control, oral contraceptives Z30.09 Cervical cancer screening Z12.4 control counseling Z30.09 Women's annual routine gynecological examination Z01.419 Hypothyroidism E03.9 Pituitary microadenoma with hyperprolactinemia D35.2; E22.9 PCOS (polycystic ovarian syndrome) E28.2 Microprolactinoma D35.2 Morbid obesity with BMI of 45.0-49.9, adult E66.01; Z68.42
[2025-04-26 09:39] VITALS: BP 120/72; BMI 49.8
--- OUTSIDE RECORDS SUMMARY | 2025-04-26 10:31 | XMS_ITS | Data Portability ---
Author Organization [facility], YULIANA Prashanth Carmelo Address [address] [place] [address] Care Team Providers Care Pbx Repairer Name Role Phone [facility] Primary Care Provider [phone] Assessment Encounter Date Assessment Date Assessment LastModified by Organization Details LastModified Time 03/15/2025 03/15/2025 24-year-old female presents today with findings consistent with right wrist de Quervain's tenosynovitis. I reviewed conservative and surgical treatment options. I recommended thumb spica splint immobilization and after discussion of benefits versus risks, recommended diclofenac 75 mg p.o. every 12 hours as needed pain for 30 days. Will plan follow-up in 4 weeks time for recheck. If she has not improved would recommend a cortisone injection. Not available 03/15/2025 09:40:07 04/12/2025 04/12/2025 24-year-old qunsk-ymxk-isjhz ant female presents today for follow-up evaluation of right wrist de Quervain's tenosynovitis status post splint and diclofenac trial who continues to have intermittent radial sided right wrist pain. I reviewed conservative treatment options the patient today. I also reviewed if conservative treatment fails surgical invention. She wished to proceed with cortisone injection today. She tolerated this well. She will follow-up in 6 weeks time for recheck, sooner if required Not available 04/12/2025 08:40:18 Plan of Treatment Reminders Order Date Submit Date Provider Last Modified By Organization Details Last Modified Time Details Appointments RECHECK 15 2024 08:30A M Choco Stevenson PA-C Not available Not available Not available Lab None recorded. Referral None recorded. Procedures None recorded. Surgeries None recorded. Imaging XR, wrist, 3 or more view - 317 3v right wrist 2024 025 [facility] [address], [address], [place], [address], 03/15/2025 10:34:53 Medication Orders diclofena c sodium 75 mg tablet,de layed release 2024 025 [id number], [address] [facility] [place], [address], 03/15/2025 10:34:53 Patient TargetsNo targets recorded. Patient InstructionsNo instructions recorded. Reason for Referral None Reported. Results Created Date Observation Date Name Description Value Unit Range Abnormal Flag Note LastModifiedBy Organization Detail LastModifiedTime 03/15/2003/15/2025 XR, wrist , 3 or more view [email or web address] ?Encry pted=s hAaTro YD8dLq bEUv6g %2BXZw aYqtaq 0bqfl% 2Fg9IQ a4ajBk vP9nXo QUaueC m3YtLR FvZlgJ JJ8mAn HZtai3 5h7901 AC0Klb H%2BDV 6KgKiQ trMwF INTERFACE [facility] [address], [place], [address], 03/15/2025 09:14:12 03/15/2003/15/2025 XR, wrist , 3 or more view [email or web address] ?Encry pted=s hAaTro YD8dLq bEUv6g %2BXZw aYqtaq 0bqfl% 2Fg9IQ a4ajBk vP9nXo QUaueC m3YtLR FvZlgJ JJ8mAn HZtai3 3o0520 AC0Klb H%2BDV 6KgKiQ trMwF INTERFACE [facility] [address], [place], [address], 03/15/2025 09:14:14 Result Notes Documentation Provider Name and Address Organization Details Recorded Time Xr, Wrist, 3 Or More View : [email or web address] Encrypted=hiPsVtbOE6rRipS Uv6g%8NCVtfFbyqw8ymmz%2Fg 5IAl6uhQxaI4wQhRYwulPa7Ix OWKaQvdUZE6sAwAMuqr68x838 7HG7LxsF%3UXI6EdWkZupZhM Not Available [facility] 03/15/2025 09:1 4:12 Xr, Wrist, 3 Or More View : [email or web address] Encrypted=xhSlFtrCX8mHoeF Uv6g%3KHXttIwqch2otsf%2Fg 4NVo0lhBwsE1lEvPNtzrYs4Zc UZWcXrlVXR1hPqXNnpt39k710 6OJ2QffY%9EGR8RnQePjkTvG Not Available [facility] 03/15/2025 09:1 4:14 Problems Name Problem SNOMED Code Status Onset Date Resolution Date Notes Provider Name and Address Organization Details Recorded Time Pain of right wrist [id number] 00 Active 2024 Choco Stevenson PA-C [address], [place], [address], [facility] 07:55:39 Tenosynovit is of right radial styloid 9330552322470 9100 Active 2024 Choco Stevenson PA-C [address], [place], [address], [facility] 09:39:36 Radial styloid tenosynovit is 06907446 Active 2024 Choco Stevenson PA-C [address], [place], [address], [facility] 09:40:12 Problem Notes None recorded. Procedures Surgical History Date Name Laterality Status Provider Name and Address Organization Details Recorded Time JZWrist Tendon Inj Celestone completed Choco Stevenson PA-C [address], [place], [address], [facility] 04/12/2025 08:39:51 Imaging Results None recorded. Procedure Notes None recorded. Medical Equipment None Reported. Allergies No known drug allergies Medications Name Sig Start Date Stop Date Status Note LastModified by Organization Details LastModified Time venlafaxine ER 37.5 mg capsule,exte nded release 24 hr TAKE 1 CAPSULE BY MOUTH ONCE A DAY TAKE WITH 150MG CAP= 187.5MG DAILY active Not Available Not Available No t Available acetaminophe n 325 mg tablet TAKE 2 TABLETS BY MOUTH 4 TIMES A DAY NEEDED FOR PAIN FOR 7 DAYS active Not Available Not Available N ot Available Retin-A 0.025 % topical cream PLEASE SEE ATTACHED FOR DETAILED DIRECTIONS active Not Available Not Available N ot Available prazosin 1 mg capsule TAKE 1 CAPSULE BY MOUTH NIGHTLY active Not Available Not Available No t Available venlafaxine ER 150 mg capsule,exte nded release 24 hr TAKE 1 CAPSULE BY MOUTH EVERY DAY active Not Available Not Available No t Available butalbital-a cetaminophen -caffeine 50 mg-325 mg-40 mg tablet TAKE 2 TABLETS BY MOUTH DAILY NEEDED FOR HEADACHE active Not Available Not Available No t Available lamotrigine 25 mg tablet TAKE 2 TABLETS BY MOUTH EVERY DAY active Not Available Not Available No t Available nortriptylin e 25 mg capsule TAKE 1 CAPSULE BY MOUTH EVERY DAY AT BEDTIME FOR 30 DAYS active Not Available Not Available No t Available meclizine 25 mg tablet TAKE 1 TABLET BY MOUTH EVERY DAY NEEDED FOR MOTION SICKNESS FOR 20 DAYS active Not Available Not Available Not Available divalproex ER 500 mg tablet,exten ded release 24 hr TAKE 1 TABLET BY MOUTH TWICE A DAY active Not Available Not Available No t Available metronidazol e 0.75 % topical cream APPLY TO AFFECTED AREAS ON FACE ONCE DAILY IN THE MORNING. active Not Available Not Available No t Available diclofenac sodium 75 mg tablet,delay ed release TAKE 1 TABLET BY MOUTH TWICE A DAY NEEDED active Not Available Not Available No t Available metoprolol succinate ER 25 mg tablet,exten ded release 24 hr TAKE 1/2 TABLET BY MOUTH DAILY active Not Available Not Available Not Available epinephrine 0.3 mg/0.3 mL injection, auto-injecto r 0.3 MG (0.3 ML) INTRAMUSCUL HIWOT EVERY 10 MINUTES NEEDED FOR ANAPHYLAXIS FOR 30 DAYS FOR 2 DOSES active Not Available Not Available Not Available ibuprofen 600 mg tablet TAKE 1 TABLET BY MOUTH 4 TIMES A DAY FOR 7 DAYS active Not Available Not Available N ot Available methylpredni solone 4 mg tablets in a dose pack TAKE 6 TABLETS ON DAY 1 DIRECTED ON PACKAGE AND DECREASE BY 1 TAB EACH DAY FOR A TOTAL OF 6 DAYS active Not Available Not Available No t Available spironolacto ne 50 mg tablet TAKE THREE TABLETS BY MOUTH ONCE DAILY BY MOUTH IN THE MORNING. active Not Available Not Available No t Available levothyroxin e 112 mcg tablet TAKE 1 TABLET (112 MCG) BY MOUTH DAILY. active Not Available Not Available No t Available Ventolin HFA 90 mcg/actuatio n aerosol inhaler INHALE 2 PUFF EVERY 6 HOURS NEEDED FOR SHORTNESS OF BREATH OR WHEEZING FOR 30 DAYS active Not Available Not Available Not Available Kariva (28) 0.15 mg-0.02 mg (21)/0.01 mg (5) tablet TAKE 1 TABLET BY MOUTH EVERY DAY active Not Available Not Available No t Available azithromycin 500 mg tablet TAKE 1 TABLET BY MOUTH EVERY DAY FOR 5 DAYS active Not Available Not Available No t Available divalproex ER 250 mg tablet,exten ded release 24 hr TAKE 1 TABLET BY MOUTH EVERY DAY active Not Available Not Available No t Available atomoxetine 25 mg capsule TAKE 1 CAPSULE BY MOUTH EVERY DAY IN THE MORNING active Not Available Not Available No t Available atomoxetine 40 mg capsule TAKE 1 CAPSULE BY MOUTH EVERY DAY IN THE MORNING active Not Available Not Available No t Available atomoxetine 60 mg capsule TAKE 1 CAPSULE BY MOUTH EVERY DAY IN THE MORNING active Not Available Not Available No t Available Restasis 0.05 % eye drops in a dropperette INSTILL 1 DROP INTO BOTH EYES TWICE A DAY active Not Available Not Available Not Available levocetirizi ne 5 mg tablet TAKE 1 TABLET BY MOUTH TWICE A DAY active Not Available Not Available No t Available melatonin 5 mg tablet TAKE 1 TABLET BY MOUTH BEDTIME NEEDED FOR SLEEP FOR 30 DAYS active Not Available Not Available No t Available Vitamin D3 50 mcg (2,000 unit) tablet TAKE 1 TABLET BY MOUTH EVERY DAY active Not Available Not Available No t Available Dulera 200 mcg-5 mcg/actuatio n HFA aerosol inhaler TAKE 2 PUFFS INHALED EVERY 12 HOURS FOR 30 DAYS active Not Available Not Available No t Available Spiriva Respimat 2.5 mcg/actuatio n solution for inhalation INHALE 2 PUFFS INTO THE LUNGS DAILY FOR 30 DAYS active Not Available Not Available No t Available Vraylar 1.5 mg capsule TAKE 1 CAPSULE BY MOUTH EVERY DAY active Not Available Not Available No t Available Vitals Date Recorded Body height Body mass index (BMI) Body weight Provider Name and Address Organization Details Last Updated DateTime 04/12/2025 157.48 cm 29.3 kg/m2 22990.78 g Ananth Narayan [facility] 04/12/2025 08:31:29 Social History None recorded. Functional Status None recorded. Mental Status None recorded. Family History Nothing Reported. Medical History No medical history recorded. Gynecological HistoryNo gynecological history recorded. Obstetrics History GPAL:G 0 P 0 0 0 0 Past Encounters Encounter ID Performer Location Encounter Start Date Encounter Closed Date Diagnosis/Indication Diagnosis SNOMED-CT Code Diagnosis ICD10 Code Diagnosis IMO Codes Diagnosis Note [id number] RIKKI Ramos [address] [place] [address] 03/15/2025 09:00:53 03/25/2025 14:16:35 Pain of right wrist [id number] 61361 M25.531 731676 Radial sty loid tenosynovitis 98183192 M65.4 942767 The patient is ambulatory , but has weakness and/or instabilit y of their extremity which requires stabilizat ion from this semi-rigid /rigid orthosis to improve their function. Verbal and written instructio ns for their use and applicatio n of this item were given. patient was instructed that should the brace result in increased pain, decreased sensation, increased swelling or an overall worsening of their medical condition, to please contact our office immediatel y. Tenosynovi tis of right radial styloid [id number] 2187072 M65.4 [id number] RIKKI Ramos [address] [place] [address] 04/12/2025 08:21:40 04/23/2025 16:41:30 Tenosynovitis of right radial styloid 5249214397 0516293 M65.4 [id number] Health Concerns Section Related Observation LastModified by Organization Detai ls LastModified Time None Recorded Concern Status LastModified by Organization Details LastModified Time None Recorded Advance Directives Directive None Recorded Payers Insurance Date Sequence Insurance Name Policy Number Policy Richardson Covered Member ID Richardson Member ID Guarantor Name 04/23/2025 1 [facility] (MEDICAID HMO) RILEY Karma Sutton [id number] Karma Sutton Notes Date Note Type Note Provider Name and Address Organization Details Recorded Time 03/15/2025 text/html ROS as noted in the HPI I am seeing this patient under the supervision of Dr. Childs who was available but who did not see the patient Chief Complaint: Right wrist pain HPI: 24-year-old zrevf-eylo-bhqxisdr female presents today reporting in December 2024 she was crocheting a blanket when she developed radial sided right wrist pain. She presented to an urgent care facility where she was told she had arthritis of her wrist provided a brace ibuprofen and Tylenol. She reports persistence of intermittent pain radial about the right wrist with use. She presents today for evaluation Choco Stevenson PA-C [address], [place], [address], [facility] 03/15/2025 09:40:24 04/12/2025 text/html ROS as noted in the HPI I am seeing this patient under the supervision of Dr. Childs who was available but who did not see the patient Chief Complaint: Follow-up evaluation for right wrist de Quervain's tenosynovitis HPI: 24-year-old rrrey-rfth-caytvtie female presents today for follow-up evaluation of right wrist de Quervain's tenosynovitis status post splint and diclofenac trial. She notes some improvements in her radial sided right wrist pain, but does note persistence of intermittent pain with use. Choco Stevenson PA-C [address], [place], [address], [facility] 04/12/2025 08:40:30 OBGyn Episode No OBEpisode recorded.
== END 2025-04-26 11:17 | disposition home or self-care (01) ==
LOC: HO.HWSM 09:25
PROVIDERS: PCP Nurse Practitioner Family; Visit Provider Advanced Practice Midwife
DX: Z01.419 Encounter for gynecological examination (general) (routine) without abnormal findings (principal); D35.2 Benign neoplasm of pituitary gland; E66.01 Morbid (severe) obesity due to excess calories; Z68.42 Body mass index [BMI] 45.0-49.9, adult; E03.9 Hypothyroidism, unspecified; Z30.09 Encounter for other general counseling and advice on contraception; E22.9 Hyperfunction of pituitary gland, unspecified; E28.2 Polycystic ovarian syndrome
CPT/HCPCS: 99395; 99459

== ENCOUNTER 2025-04-26 09:25 | Outpatient (REF) | payer OTHER, SELFPAY ==
[2025-04-28 05:21] LABS: Bacterial Vaginosis PCR NEGATIVE (Negative); Candida Group PCR NOT DETECTED (Not Detect); Candida glab krusei PCR NOT DETECTED (Not Detect); Trichomonas vaginalis PCR NOT DETECTED (Not Detect)
[2025-04-28 05:52] LABS: CT PCR NOT DETECTED (Not Detect.); NG PCR NOT DETECTED (Not Detect.)
== END 2025-04-26 09:26 | disposition home or self-care (01) ==
LOC: HO.LNP 09:25
PROVIDERS: PCP Nurse Practitioner Family; Visit Provider Advanced Practice Midwife
DX: Z01.419 Encounter for gynecological examination (general) (routine) without abnormal findings (principal); Z30.09 Encounter for other general counseling and advice on contraception; D35.2 Benign neoplasm of pituitary gland; E22.9 Hyperfunction of pituitary gland, unspecified; E03.9 Hypothyroidism, unspecified; E66.01 Morbid (severe) obesity due to excess calories; Z68.42 Body mass index [BMI] 45.0-49.9, adult; Z20.2 Contact with and (suspected) exposure to infections with a predominantly sexual mode of transmission
CPT/HCPCS: 81515; 87491; 87591; 87626; 88175; 99395

== ENCOUNTER 2025-06-09 07:24 | Outpatient (REF) | payer OTHER, SELFPAY ==
--- OUTSIDE RECORDS SUMMARY | 2025-06-09 07:29 | XMS_ITS | Continuity of Care Document ---
Author Organization [facility] - [facility] Surgeons [facility], YULIANA Wheat 3rd floor Address [address] [place] [address] Care Team Providers Care Day Care Assistant Name Role Phone [facility] Primary Care Provider Assessment Encounter Date Assessment Date Assessment LastModified [...] a cortisone injection. Not available 03/15/2025 09:40:07 Plan of Treatment Reminders Order Date Submit Date Provider Last Modified By Organization Details Last Modified Time Details Appointments None recorded. Lab None recorded. Referral None recorded. Procedures None recorded. Surgeries None recorded. Imaging XR, wrist, 3 or more view - 317 3v right wrist [address] [facility] Office, [address], [address], [place], [address], 5 10:34:53 Medication Orders diclofenac sodium 75 mg tablet,sherine yed release 2024 025 [id number], [address] [facility] [place], [address], 5 10:34:53 Patient TargetsNo targets recorded. Patient InstructionsNo instructions recorded. Reason for Referral None Reported. Results Created Date Observation Date Name Description Value Unit Range Abnormal Flag Note LastModifiedBy Organization Detail LastModifiedTime 03/15/2003/15/2025 XR, wrist , 3 or more view http:/ [email or web address] ?Encry pted=s Rolao YD8dLq bEUv6g %2BXZw aYqtaq 0bqfl% 2Fg9IQ a4ajBk vP9nXo QUaueC m3YtLR FvZlgJ JJ8mAn HZtai3 1z0437 AC0Klb H%2BDV 6KgKiQ trMwF INTERFACE [facility] Office [address], [place], [address], 03/15/2025 09:14:12 03/15/2003/15/2025 XR, wrist , 3 or more view http:/ [email or web address] ?Encry pted=s Rolao YD8dLq bEUv6g %2BXZw aYqtaq 0bqfl% 2Fg9IQ a4ajBk vP9nXo QUaueC m3YtLR FvZlgJ JJ8mAn HZtai3 1t7661 AC0Klb H%2BDV 6KgKiQ trMwF INTERFACE [facility] Office [address], [place], [address], 03/15/2025 09:14:14 Result Notes Documentation Provider Name and Address Organization Details Recorded Time Xr, Wrist, 3 Or More View : [email or web address] Encrypted=sgXwNslEX6vCsfQ Uv6g%1KHNgtVkhch5ogzh%2Fg 5VDr1xuDdbV4lDjTQjulCl7Ov TQHgHsnTFK7lCnVArcu95t850 4FX3VbwS%7BBA3AiAeMpsXyP Not Available [facility] 03/15/2025 09:1 4:12 Xr, Wrist, 3 Or More View : [email or web address] Encrypted=quBwQyaPO2vHyjU Uv6g%9KIVxmIdavf7fpmo%2Fg 0UTf1svKmeR9vLfJRcslYx2Uq IOMhRjzEPM3tTtVIwri08j190 3NL0UflT%8MAZ1OjQyEknAcE Not Available [facility] 03/15/2025 09:1 4:14 Problems Name Problem SNOMED Code Status Onset Date Resolution Date Notes Provider Name and Address Organization Details Recorded Time Pain of right wrist 7551480907948 00 Active 2024 Choco Stevenson PA-C [address], [place], [address], [facility] 5 07:55:39 Tenosynovit is of right radial styloid 9553972889627 9100 Active 2024 Choco Stevenson PA-C [address], [place], [address], [facility]3] [facility] 5 09:39:36 Radial styloid tenosynovit is 08521751 Active 2024 Choco Stevenson PA-C [address], [place], [address], [facility] 5 09:40:12 Problem Notes None recorded. Procedures Surgical History Date Name Laterality Status Provider Name and Address Organization Details Recorded Time 5 JZWrist Tendon Inj Celestone completed Choco Stevenson PA-C [address], [place], [address], [facility]3] [facility] 04/12/2025 08:39:51 Imaging Results [...] e 112 mcg tablet TAKE 1 TABLET BY MOUTH EVERY [...] Not Available Not Available No t Available Breo Ellipta 200 mcg-25 mcg/dose powder for inhalation INHALE 1 PUFF ONCE DAILY FOR 30 DAYS active Not Available Not Available No t Available Vraylar 1.5 mg capsule TAKE 1 CAPSULE BY MOUTH EVERY DAY active Not Available Not Available No t Available Vitals None Recorded Social History None recorded. Functional Status None recorded. Mental Status None recorded. Family History Nothing Reported. Medical History No medical history recorded. Gynecological HistoryNo gynecological history recorded. Obstetrics History GPAL:G 0 P 0 0 0 0 Past Encounters Encounter ID Performer Location Encounter Start Date Encounter Closed Date Diagnosis/Indication Diagnosis SNOMED-CT Code Diagnosis ICD10 Code Diagnosis IMO Codes Diagnosis Note [id number] RIKKI Ramos 3rd floor [address] [place] [address] 03/15/2025 09:00:53 03/25/2025 14:16:35 Pain of right wrist 8579040845 90887 M25.531 407670 Radial sty loid tenosynovitis 86640618 M65.4 490640 The patient is ambulatory , but has [...] y. Tenosynovi tis of right radial styloid 7556512510 5710107 M65.4 [id number] Health Concerns Section Related Observation LastModified by Organization Detai ls LastModified Time None Recorded Concern Status LastModified by Organization Details LastModified Time None Recorded Payers Encounter Date Sequence Insurance Name Policy Number Policy Richardson Covered Member ID Richardson Member ID Guarantor Name 03/15/2025 1 [facility] - HEALTH NET PLAN (MEDICAID HMO) RILEY Sutton [id number] Karma Sutton Notes Date Note Type Note Provider Name and Address Organization Details Recorded Time 03/15/2025 text/html ROS as noted in the HPI I am seeing this patient under the supervision of Dr. Childs who was available but who did not see the patient Chief Complaint: Right wrist pain HPI: 24-year-old vjjra-nayy-lhhtrzr t female presents today reporting in December 2024 [...] today for evaluation Choco Stevenson PA-C [address], [place], [address], [facility] [place] [facility] 03/15/2025 09:40:24 OBGyn Episode No OBEpisode recorded.
--- OUTSIDE RECORDS SUMMARY | 2025-06-09 07:29 | XMS_ITS | Data Portability ---
Author Organization [facility], YULIANA Prashanth Carmelo PT Address [address] [place] [address] Care Team Providers Care Highway Painter Name Role Phone [facility] Primary Care Provider [phone] Assessment Encounter Date Assessment Date Assessment LastModified by Organization Details LastModified Time 03/15/2025 03/15/2025 24-year-old femsherrie vasquez presents today with findings consistent with right [...] Not available 03/15/2025 09:40:07 04/12/2025 04/12/2025 24-year-old qoxjx-rwhe-zguihci t female presents today for follow-up evaluation of [...] sooner if required Not available 04/12/2025 08:40:18 05/23/2025 05/23/2025 24-year-old kpgkk-azxt-ifaiuaw t female presents today for follow-up evaluation of right wrist de Quervain's tenosynovitis status post splint, diclofenac trial, and recent cortisone injection with near resolution of symptoms. She has no significant symptoms on exam today but does intermittently have some minimal pain for which she rates as 1 out of 10 intensity. I recommend ojvi-ara-kjfemlz anti-inflammatorie s and to ease back into activities as tolerated. Recommend follow-up symptomatically going forward. [email or web address] Not available 05/23/2025 08:30:11 Plan of Treatment Reminders Order Date Submit Date Provider Last Modified By Organization Details Last Modified Time Details Appointments None recorded. Lab None recorded. Referral None recorded. Procedures None recorded. Surgeries None recorded. Imaging XR, wrist, 3 or more view - 317 3v right wrist [facility]24 [facility]25 [email or web address] Office, [address], [address], [place], [address], 10:34:53 Medication Orders diclofenac sodium 75 mg tablet,sherine yed release 2024 025 [id number], [address] , [place], [address], 10:34:53 Patient TargetsNo targets recorded. Patient InstructionsNo instructions recorded. Reason for Referral None Reported. Results Created Date Observation Date Name Description Value Unit Range Abnormal Flag Note LastModifiedBy Organization Detail LastModifiedTime 03/15/2003/15/2025 XR, wrist , 3 or more view http:/ [email or web address] ?Encry pted=s hAaTro YD8dLq bEUv6g %2BXZw aYqtaq 0bqfl% 2Fg9IQ a4ajBk vP9nXo QUaueC m3YtLR FvZlgJ JJ8mAn HZtai3 9c1951 AC0Klb H%2BDV 6KgKiQ trMwF INTERFACE [facility] [address], [place], [address], 03/15/2025 09:14:12 03/15/2003/15/2025 XR, wrist , 3 or more view http:/ [email or web address] ?Encry pted=s hAaTro YD8dLq bEUv6g %2BXZw aYqtaq 0bqfl% 2Fg9IQ a4ajBk vP9nXo QUaueC m3YtLR FvZlgJ JJ8mAn HZtai3 2j9260 AC0Klb H%2BDV 6KgKiQ trMwF INTERFACE [facility] [address], [place], [address], 03/15/2025 09:14:14 Result Notes Documentation Provider Name and Address Organization Details Recorded Time Xr, Wrist, 3 Or More View : [email or web address] Encrypted=ouJsLfwJB1rSrjG Uv6g%0YUArpClsmh2gzrd%2Fg 9TTq6nqQuwG6aDsGDgclEh2Do KVBtSqcBUM3cHlNBzir93e852 3MN2PlbS%7AYS8FjDeYgsQmB Not Available [facility] 03/15/2025 09:1 4:12 Xr, Wrist, 3 Or More View : [email or web address] Encrypted=rlKjSghXI7oOmvV Uv6g%4YRVulYbjnk7udge%2Fg 1VGz6iqWaoS8yIyGVivuVv0Zw NZSxWpdGZF9wQeUHkul78v834 7OT9UshT%3GES2NtHdUrzQrI Not Available [facility] 03/15/2025 09:1 4:14 Problems Name Problem SNOMED Code Status Onset Date Resolution Date Notes Provider Name and Address Organization Details Recorded Time Pain of right wrist 3937579325912 00 Active 2024 Choco Stevenson PA-C [address] [facility] [address] [facility] [address], [place], [address], [facility] 07:55:39 Tenosynovit is of right radial styloid 0826092670100 9100 Active 2024 Choco Stevenson PA-C [address], [place], [address], [facility] 09:39:36 Radial styloid tenosynovit is 67449496 Active 2024 Choco Stevenson PA-C [address], [place], [address], [facility] 09:40:12 Problem Notes None recorded. Procedures Surgical History Date Name Laterality Status Provider Name and Address Organization Details Recorded Time JZWrist Tendon Inj Celestone completed Choco Stevenson PA-C [address], [place], [address], [facility] 04/12/2025 08:39:51 Imaging Results [...] Updated DateTime 04/12/2025 157.48 cm 29.3 kg/m2 30954.78 g Ananth Narayan [place] - [facility] 04/12/2025 08:31:29 Social History None recorded. Functional Status None recorded. Mental Status None recorded. Family History Nothing Reported. Medical History No medical history recorded. Gynecological HistoryNo gynecological history recorded. Obstetrics History GPAL:G 0 P 0 0 0 0 Past Encounters Encounter ID Performer Location Encounter Start Date Encounter Closed Date Diagnosis/Indication Diagnosis SNOMED-CT Code Diagnosis ICD10 Code Diagnosis IMO Codes Diagnosis Note [id number] RIKKI Ramos 3rd floor [address] [place] [address] 03/15/2025 09:00:53 03/25/2025 14:16:35 Pain of right wrist [id number] 47903 M25.531 462081 Radial sty loid tenosynovitis 22843291 M65.4 827402 The patient is ambulatory , but has [...] y. Tenosynovi tis of right radial styloid 5466273194 1487608 M65.4 [id number] RIKKI Ramos - [place] [address] [place] [address] 04/12/2025 08:21:40 04/23/2025 16:41:30 Tenosynovitis of right radial styloid 9144386913 8708527 M65.4 [id number] RIKKI Ramos - [address] 1[address] [place] [address] 05/23/2025 08:18:41 06/07/2025 13:52:41 Tenosynovitis of right radial styloid 6023682961 7121238 M65.4 [id number] Health Concerns Section Related Observation LastModified by Organization Detai ls LastModified Time None Recorded Concern Status LastModified by Organization Details LastModified Time None Recorded Advance Directives Directive None Recorded Payers Insurance Date Sequence Insurance Name Policy Number Policy Richardson Covered Member ID Richardson Member ID Guarantor Name 06/07/2025 1 [facility] - HEALTH NET PLAN (MEDICAID HMO) RILEY Sutton [id number] Karma Sutton Notes Date Note Type Note Provider Name and Address Organization Details Recorded Time 03/15/2025 text/html ROS as noted in the HPI I am seeing this patient under the supervision of Dr. Childs who was available but who did not see the patient Chief Complaint: Right wrist pain HPI: 24-year-old ovjoq-rgza-qaifkgvx female presents today reporting in December 2024 [...] today for evaluation Choco Stevenson PA-C [address], [place], [address], [facility] 03/15/2025 09:40:24 04/12/2025 text/html ROS as noted in the HPI I am seeing this patient under the supervision of Dr. Childs who was available but who did not see the patient Chief Complaint: Follow-up evaluation for right wrist de Quervain's tenosynovitis HPI: 24-year-old xlzdi-nnae-ckokulry female presents today for follow-up evaluation of right wrist de Quervain's tenosynovitis status post splint and diclofenac trial. She notes some improvements in her radial sided right wrist pain, but does note persistence of intermittent pain with use. Choco Stevenson PA-C [address], [place], [address], [facility] 04/12/2025 08:40:30 05/23/2025 text/html ROS as noted in the HPI I am seeing this patient under the supervision of Dr. Sheikh who was available but who did not see the patient Chief Complaint: Follow-up evaluation for right wrist de Quervain's tenosynovitis HPI: 24-year-old nqseg-uwxb-bszaxaqo female presents today for follow-up evaluation of right wrist de Quervain's tenosynovitis status post splint, diclofenac trial, and recent cortisone injection. She notes she did well with her cortisone injection noting some very minimal residual pain at terminal wrist flexion and with use. Otherwise she is doing significantly better. Choco Stevenson PA-C [address], [place], [address], [facility] 05/23/2025 08:30:31 OBGyn Episode No OBEpisode recorded.
--- OUTSIDE RECORDS SUMMARY | 2025-06-09 07:29 | XMS_ITS | Continuity of Care Document ---
Author Organization [facility], [facility] 1st Floor Address [address] [place] [address] Care Team Providers Care Pitching Coach Name Role Phone [facility] Primary Care Provider [phone] Assessment Encounter Date Assessment Date Assessment LastModified by Organization Details LastModified Time 05/23/2025 05/23/2025 24-year-old hkwxv-gxvu-yxnyibv t female presents today for follow-up evaluation of right wrist de Quervain's tenosynovitis status post splint, diclofenac trial, and recent cortisone injection with near resolution of symptoms. She has no significant symptoms on exam today but does intermittently have some minimal pain for which she rates as 1 out of 10 intensity. I recommend oimg-yar-uxuqlxv anti-inflammatorie s and to ease back into activities as tolerated. Recommend follow-up symptomatically going forward. Not available 05/23/2025 08:30:11 Plan of Treatment Reminders Order Date Submit Date Provider Last Modified By Organization Details Last Modified Time Details Appointments None record ed. Lab None record ed. Referral None record ed. Procedures None record ed. Surgeries None record ed. Imaging None record ed. Medication Orders None record ed. Patient TargetsNo targets recorded. Patient InstructionsNo instructions recorded. Reason for Referral None Reported. Problems Name Problem SNOMED Code Status Onset Date Resolution Date Notes Provider Name and Address Organization Details Recorded Time Pain of right wrist 9781112766013 00 Active 2024 Choco Stevenson PA-C [address], [place], [address], [facility] 07:55:39 Tenosynovit is of right radial styloid 2871920777816 9100 Active 2024 Choco Stevenson PA-C [address], [place], [address], [facility] 5 09:39:36 Radial styloid tenosynovit is 33103542 Active 2024 Choco Stevenson PA-C [address], [place], [address], [facility] 5 09:40:12 Problem Notes None recorded. Procedures Surgical History Date Name Laterality Status Provider Name and Address Organization Details Recorded Time JZWrist Tendon Inj Celestone completed Choco Stevenson PA-C [address], [place], [address], [facility] 04/12/2025 08:39:51 Imaging Results None recorded. Procedure [...] ICD10 Code Diagnosis IMO Codes Diagnosis Note [id number] RIKKI Ramos 1st [address] [place] [address] 05/23/2025 08:18:41 06/07/2025 13:52:41 Tenosynovitis of right radial styloid [id number] 3980336 M65.4 [id number] Health Concerns Section Related Observation LastModified by Organization Dudley larson LastModified Time None Recorded Concern Status LastModified by Organization Details LastModified Time None Recorded Payers Encounter Date Sequence Insurance Name Policy Number Policy Richardson Covered Member ID Richardson Member ID Guarantor Name 05/23/2025 1 [facility] (MEDICAID HMO) RILEY Sutton [id number] Karma Sutton Notes Date Note Type Note Provider Name and Address Organization Details Recorded Time 05/23/2025 text/html ROS as noted in the HPI I am seeing this patient under the supervision of Dr. Sheikh who was available but who did not see the patient Chief Complaint: Follow-up evaluation for right wrist de Quervain's tenosynovitis HPI: 24-year-old vxqya-wyaw-stzraomm female presents today for follow-up evaluation of right wrist de Quervain's tenosynovitis status post splint, diclofenac trial, and recent cortisone injection. She notes she did well with her cortisone injection noting some very minimal residual pain at terminal wrist flexion and with use. Otherwise she is doing significantly better. Choco Stevenson PA-C [address], [place], [address], [facility] [place] [facility] 05/23/2025 08:30:31 OBGyn Episode No OBEpisode recorded.
--- OUTSIDE RECORDS SUMMARY | 2025-06-09 07:29 | XMS_ITS | Continuity of Care Document ---
Author Organization [facility], YULIANA Pernell 1st Floor Address [address] [place] [address] Care Team Providers Care Belt Back Operator Name Role Phone [facility] Primary Care Provider Assessment Encounter Date Assessment Date Assessment LastModified by Organization Details LastModified Time 04/12/2025 04/12/2025 24-year-old ymvxq-oqle-wajlg ant female presents today for follow-up evaluation [...] a4ajBk vP9nXo QUaueC m3YtLR FvZlgJ JJ8mAn HZtai3 4y6264 AC0Klb H%2BDV 6KgKiQ trMwF INTERFACE [facility] [address], [place], [address], 03/15/2025 09:14:12 03/15/20 25 03/15/2025 XR, wrist , 3 or more view http:/ [email or web address] ?Encry pted=s hAaTro YD8dLq bEUv6g %2BXZw aYqtaq 0bqfl% 2Fg9IQ a4ajBk vP9nXo QUaueC m3YtLR FvZlgJ JJ8mAn HZtai3 3f2344 AC0Klb H%2BDV 6KgKiQ trMwF INTERFACE [facility] [address], [place], [address], 03/15/2025 09:14:14 Result Notes None recorded. Problems Name Problem SNOMED Code Status Onset Date Resolution Date Notes Provider Name and Address Organization Details Recorded Time Pain of right wrist 2243268359623 00 Active 2024 Choco Stevenson PA-C [address], [place], [address], [facility] 5 07:55:39 Tenosynovit is of right radial styloid 6764878390832 9100 Active 2024 Choco Stevenson PA-C [address], [place], [address], [facility] 5 09:39:36 Radial styloid tenosynovit is 42076191 Active 2024 Choco Stevenson PA-C [address], [place], [address], [facility] 5 09:40:12 Problem Notes None recorded. Procedures Surgical History Date Name Laterality Status Provider Name and Address Organization Details Recorded Time HELENAWrist Tendon Inj Celestone completed Choco Stevenson PA-C [address], [place], [address], [facility] [place] [facility] 04/12/2025 [...] Updated DateTime 04/12/2025 157.48 cm 29.3 kg/m2 03719.78 g Ananth Narayan [facility] 04/12/2025 08:31:29 Social History None recorded. Functional Status None recorded. Mental Status None recorded. Family History Nothing Reported. Medical History No medical history recorded. Gynecological HistoryNo gynecological history recorded. Obstetrics History GPAL:G 0 P 0 0 0 0 Past Encounters Encounter ID Performer Location Encounter Start Date Encounter Closed Date Diagnosis/Indication Diagnosis SNOMED-CT Code Diagnosis ICD10 Code Diagnosis IMO Codes Diagnosis Note [id number] RIKKI Ramos 3rd floor [address] [place] [address] 03/15/2025 09:00:53 03/25/2025 14:16:35 Pain of right wrist 1439333631 71587 M25.531 767987 Radial sty loid tenosynovitis 86405690 M65.4 532255 The patient is ambulatory , but has [...] y. Tenosynovi tis of right radial styloid 3421228155 1663265 M65.4 [id number] RIKKI Ramos 1st [address] [place] [address] 04/12/2025 08:21:40 04/23/2025 16:41:30 Tenosynovitis of right radial styloid 7337311432 9265179 M65.4 [id number] Health Concerns Section Related Observation LastModified by Organization Detai ls LastModified Time None Recorded Concern Status LastModified by Organization Details LastModified Time None Recorded Payers Encounter Date Sequence Insurance Name Policy Number Policy Richardson Covered Member ID Richardson Member ID Guarantor Name 04/12/2025 1 [facility] - HEALTH NET PLAN (MEDICAID HMO) RILEY Sutton [id number] Karma Sutton Notes Date Note Type Note Provider Name and Address Organization Details Recorded Time 04/12/2025 text/html ROS as noted in the HPI I am seeing this patient under the supervision of Dr. Childs who was available but who did not see the patient Chief Complaint: Follow-up evaluation for right wrist de Quervain's tenosynovitis HPI: 24-year-old jowzj-xczw-mhywoncz female presents today for follow-up evaluation of right wrist de Quervain's tenosynovitis status post splint and diclofenac trial. She notes some improvements in her radial sided right wrist pain, but does note persistence of intermittent pain with use. Choco Stevenson PA-C [address], [place], [address], [facility] [place] [facility] 04/12/2025 08:40:30 OBGyn Episode No OBEpisode recorded.
[2025-06-09 11:15] LABS: MANUAL DIFF FLAG NO
[2025-06-09 11:17] LABS: Hematocrit 44.1 % (37.0-47.0); Hemoglobin 14.3 g/dl (12.0-16.0); Imm Gran Abs Auto 0.04 X10*3/uL (0.00-0.03); Imm Gran Pct Auto 0.4 % (0.0-0.4); Lymphocytes Absolute Auto 3.7 X10*3/uL (1.2-4.9); Mean Corpuscular HGB Conc 32.4 g/dl (31.0-35.0); Mean Corpuscular Hemoglobin 29.2 pg (27.0-33.0); Mean Corpuscular Volume 90.2 fL (80.0-98.0); NRBC Abs Auto 0.020 X10*3/uL (0.0-0.012); NRBC Pct Auto 0.2 /100WBC (0.0-0.2); Platelet Count 367 X10*3/uL (160-400); Red Blood Count 4.89 X10*6/uL (4.20-5.50); White Blood Count 10.3 X10*3/uL (4.8-10.8)
[2025-06-09 11:18] LABS: Appearance Urine Cloudy; Glucose Urine UA Negative (Negative); PH 6.5 (5.0-9.0); Specific Gravity - Urine 1.025 (1.005-1.025); UMIC TRIGGER UACC YES
[2025-06-09 11:31] LABS: UACC Culture Trigger YES
[2025-06-09 11:58] LABS: Erythrocyte Sedimentation Rate 11 MM/HR (0-20)
[2025-06-09 12:40] LABS: Alanine Aminotransferase 40 U/L (0-31); Albumin Level 4.0 g/dL (3.5-5.0); Alkaline Phosphatase 70 U/L (39-117); Anion Gap 13 (12-20); Aspartate Amino Transferase 44 U/L (5-31); Blood Urea Nitrogen 16 mg/dL (9-16); Calcium 9.4 mg/dL (8.4-10.2); Carbon Dioxide 23 mmol/L (22-29); Chloride 108 mmol/L (96-108); Cholesterol 175 mg/dL (<200); Estimated Glomerular Filt Rate > 60; HDL Cholesterol 62 mg/dL (>40); Potassium 4.3 mmol/L (3.3-5.1); Sodium 140 mmol/L (135-145); Total Protein 7.5 g/dL (6.5-8.0); Triglycerides 89 mg/dL (<150)
[2025-06-09 14:55] LABS: Free T4 (Free Thyroxine) 1.03 ng/dL (0.71-1.85)
== END 2025-06-09 07:25 | disposition home or self-care (01) ==
LOC: HO.HMGCLDS 07:24
PROVIDERS: Absent Provider Hospitalist; PCP Nurse Practitioner Family; Visit Provider Nurse Practitioner Family
DX: Z00.00 Encounter for general adult medical examination without abnormal findings (principal); J45.51 Severe persistent asthma with (acute) exacerbation
CPT/HCPCS: 36415; 80053; 80061; 81001; 82306; 82785; 84439; 84443; 85025; 85652; 87086; 87147

== ENCOUNTER 2025-06-13 08:14 | Outpatient (AMB) | payer OTHER, SELFPAY ==
[2025-06-13 08:17] VITALS: BP 118/70; PULSE 96; RESP 16; O2SAT 98; BMI 52.3
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
== END 2025-06-13 10:21 | disposition home or self-care (01) ==
LOC: HO.HMCC 08:15
PROVIDERS: PCP Nurse Practitioner Family; Visit Provider Nurse Practitioner Family
DX: Z00.01 Encounter for general adult medical examination with abnormal findings (principal); E03.9 Hypothyroidism, unspecified; R73.9 Hyperglycemia, unspecified; R07.89 Other chest pain; R74.01 Elevation of levels of liver transaminase levels; Z13.9 Encounter for screening, unspecified

== ENCOUNTER → 2025-06-13 08:14 | Outpatient (BNVA) | payer OTHER, SELFPAY | PROVIDERS: PCP Nurse Practitioner Family; Visit Provider Nurse Practitioner Family | DX: Z00.01 Encounter for general adult medical examination with abnormal findings (principal); E03.9 Hypothyroidism, unspecified; R74.8 Abnormal levels of other serum enzymes; R73.9 Hyperglycemia, unspecified; R07.89 Other chest pain | CPT/HCPCS: 83036; 96127; 99395 ==

== ENCOUNTER 2025-06-25 08:03 | Outpatient (AMB) | payer OTHER, SELFPAY ==
--- OUTSIDE RECORDS SUMMARY | 2025-06-21 23:59 | XMS_ITS | Continuity of Care Document ---
Author Organization [facility] Diabetes Address [address] [place] [address]- Care Team Providers Care Physician Office Assistant Name Role Phone Dino CORRALES, Rasta Michele Primary Care Physician [phone] Encounter [facility] ACCT R [id number] Date(s): 02/21/25 - 06/21/25 [facility] [address] [place] [address]- Attending Physician: Amanda Hodge MD Admitting Physician: Amanda Hodge MD Encounter Type: Pre-OutPatient One Time Allergies, Adverse Reactions, Alerts Substance Criticality Severity Reaction Reaction Severity Status Nuts High criticality Severe Act robb Wheat High criticality Severe Act robb Egg Allergy High criticality Severe A ctive Medications Aerochamber w/Mask (Medium) See Instructions, # 2 each, Refills 0, Tot. Refills 0, Use with flovent and albuterol inhaler, 07/31/08 11:42:04 AM EST Start Date: 07/31/08 Status: Ordered Medication Dispense Status: Completed Quantity: 2.0 Unit: each Total Allowed Fills: 1 Fills Dispensed: 0 Cetirizine By Mouth, Daily, 0 Refills, Maintenance, 06/08/16 9:59:07 AM EST Start Date: 06/08/16 Status: Ordered Medication Dispense Status: Completed Total Allowed Fills: 1 Fills Dispensed: 0 cetirizine 10 mg oral tablet 0 Refills, Maintenance, 03/14/21 1:50:00 PM EDT, Partial fill upon patient request if the prescription is for a schedule II opioid drug. Start Date: 03/14/21 Status: Ordered Medication Dispense Status: Completed Total Allowed Fills: 1 Fills Dispensed: 0 clindamycin 1% topical lotion 0 Refills, Maintenance, 03/14/21 1:50:00 PM EDT, Partial fill upon patient request if the prescription is for a schedule II opioid drug. Start Date: 03/14/21 Status: Ordered Medication Dispense Status: Completed Total Allowed Fills: 1 Fills Dispensed: 0 Depakote 500 mg oral enteric coated tablet 1 tablet = 500 mg, By Mouth, 2 times a day, # 60 tablet, 5 Refills, Maintenance, 11/13/24 9:24:00 AMEDT, EC Tablet, Partial fill upon patient request if the prescription is for a schedule II opioid drug. Start Date: 11/13/24 Status: Ordered Medication Dispense Status: Completed Quantity: 60.0 Unit: tablet Total Allowed Fills: 1 Fills Dispensed: 0 Depakote 500 mg oral enteric coated tablet 1 tablet = 500 mg, By Mouth, 2 times a day, # 60 tablet, 5 Refills, Maintenance, 11/13/24 9:24:00 AMEDT, EC Tablet, Partial fill upon patient request if the prescription is for a schedule II opioid drug. Start Date: 11/13/24 Status: Ordered Medication Dispense Status: Completed Quantity: 60.0 Unit: tablet Total Allowed Fills: 1 Fills Dispensed: 0 Dulera 200 mcg-5 mcg/inh inhalation aerosol 2 inhalation, Inhalation, 2 times a day, rinse mouth and throat after use, # 13 Gm, 0 Refills, Maintenance, 11/13/24 9:26:00 AM EDT, Aerosol, Partial fill upon patient request if the prescription is for a schedule II opioid drug. Start Date: 11/13/24 Status: Ordered Medication Dispense Status: Completed Quantity: 13.0 Unit: g Total Allowed Fills: 1 Fills Dispensed: 0 EPINEPHrine 0.3 mg injectable solution 0 Refills, Maintenance, 03/14/21 1:51:00 PM EDT, Partial fill upon patient request if the prescription is for a schedule II opioid drug. Start Date: 03/14/21 Status: Ordered Medication Dispense Status: Completed Total Allowed Fills: 1 Fills Dispensed: 0 escitalopram 20 mg oral tablet 0 Refills, Maintenance, 03/14/21 1:53:00 PM EDT, Partial fill upon patient request if the prescription is for a schedule II opioid drug. Start Date: 03/14/21 Status: Ordered Medication Dispense Status: Completed Total Allowed Fills: 1 Fills Dispensed: 0 Fioricet oral capsule 1 capsule, By Mouth, Every 4 hours, PRN as needed, # 30 capsule, 0 Refills, Maintenance, 11/13/24 9:21:00 AM EDT, Capsule, Partial fill upon patient request if the prescription is for a schedule II opioid drug. Start Date: 11/13/24 Status: Ordered Medication Dispense Status: Completed Quantity: 30.0 Unit: capsule Total Allowed Fills: 1 Fills Dispensed: 0 FLUoxetine 20 mg oral capsule Refills 0, Maintenance, 03/14/21 1:50:00 PM EDT, Partial fill upon patient request if the prescription is for a schedule II opioid drug. Start Date: 03/14/21 Status: Ordered Medication Dispense Status: Completed Total Allowed Fills: 1 Fills Dispensed: 0 fluticasone 50 mcg/inh nasal spray 0 Refills, Maintenance, 03/14/21 1:52:00 PM EDT, Partial fill upon patient request if the prescription is for a schedule II opioid drug. Start Date: 03/14/21 Status: Ordered Medication Dispense Status: Completed Total Allowed Fills: 1 Fills Dispensed: 0 hydrocortisone 2.5% topical ointment 0 Refills, Maintenance, 03/14/21 1:54:00 PM EDT, Partial fill upon patient request if the prescription is for a schedule II opioid drug. Start Date: 03/14/21 Status: Ordered Medication Dispense Status: Completed Total Allowed Fills: 1 Fills Dispensed: 0 Kariva oral tablet 1 tablet, By Mouth, Daily, # 84 tablet, 0 Refills, Maintenance, 03/14/21 2:21:00 PM EDT, Tablet, Partial fill upon patient request if the prescription is for a schedule II opioid drug. Start Date: 03/14/21 Status: Ordered Medication Dispense Status: Completed Quantity: 84.0 Unit: tablet Total Allowed Fills: 1 Fills Dispensed: 0 lamotrigine 25 mg oral tablet Refills 0, Maintenance, 11/13/24 9:25:00 AM EDT, Partial fill upon patient request if the prescription is for a schedule II opioid drug. Start Date: 11/13/24 Status: Ordered Medication Dispense Status: Completed Total Allowed Fills: 1 Fills Dispensed: 0 LORazepam 0.5 mg oral tablet 0 Refills, Maintenance, 03/14/21 1:51:00 PM EDT, Partial fill upon patient request if the prescription is for a schedule II opioid drug. Start Date: 03/14/21 Status: Ordered Medication Dispense Status: Completed Total Allowed Fills: 1 Fills Dispensed: 0 meclizine 25 mg oral tablet 1 tablet = 25 mg, By Mouth, 3 times a day, 0 Refills, Maintenance, 11/13/24 9:23:00 AM EDT, Partial fill upon patient request if the prescription is for a schedule II opioid drug. Start Date: 11/13/24 Status: Ordered Medication Dispense Status: Completed Total Allowed Fills: 1 Fills Dispensed: 0 Restasis Every 12 hours, 0 Refills, Maintenance, 11/13/24 9:19:00 AM EDT, Partial fill upon patient request if the prescription is for a schedule II opioid drug. Start Date: 11/13/24 Status: Ordered Medication Dispense Status: Completed Total Allowed Fills: 1 Fills Dispensed: 0 Spiriva Respimat 1.25 mcg/inh inhalation aerosol 0 Refills, Maintenance, 03/14/21 1:51:00 PM EDT, Partial fill upon patient request if the prescription is for a schedule II opioid drug. Start Date: 03/14/21 Status: Ordered Medication Dispense Status: Completed Total Allowed Fills: 1 Fills Dispensed: 0 spironolactone 50 mg oral tablet 0 Refills, Maintenance, 11/13/24 9:19:00 AM EDT, Partial fill upon patient request if the prescription is for a schedule II opioid drug. Start Date: 11/13/24 Status: Ordered Medication Dispense Status: Completed Total Allowed Fills: 1 Fills Dispensed: 0 Strattera 25 mg oral capsule 1 capsule = 25 mg, By Mouth, Daily in AM, # 30 capsule, 0 Refills, Maintenance, 11/13/24 9:21:00 AM EDT, Capsule, Partial fill upon patient request if the prescription is for a schedule II opioid drug. Start Date: 11/13/24 Status: Ordered Medication Dispense Status: Completed Quantity: 30.0 Unit: capsule Total Allowed Fills: 1 Fills Dispensed: 0 Synthroid 0.112 mg oral tablet 1 tablet = 112 mcg, By Mouth, Daily, # 60 tablet, 0 Refills, Maintenance, 11/13/24 9:26:00 AM EDT, Tablet, Partial fill upon patient request if the prescription is for a schedule II opioid drug. Start Date: 11/13/24 Status: Ordered Medication Dispense Status: Completed Quantity: 60.0 Unit: tablet Total Allowed Fills: 1 Fills Dispensed: 0 tretinoin 0.025% topical cream 0 Refills, Maintenance, 03/14/21 1:51:00 PM EDT, Partial fill upon patient request if the prescription is for a schedule II opioid drug. Start Date: 03/14/21 Status: Ordered Medication Dispense Status: Completed Total Allowed Fills: 1 Fills Dispensed: 0 venlafaxine 150 mg oral capsule, extended release 0 Refills, Maintenance, 11/13/24 9:25:00 AM EDT, Partial fill upon patient request if the prescription is for a schedule II opioid drug. Start Date: 11/13/24 Status: Ordered Medication Dispense Status: Completed Total Allowed Fills: 1 Fills Dispensed: 0 Vitamin D3 2000 intl units oral tablet 0 Refills, Maintenance, 03/14/21 1:50:00 PM EDT, Partial fill upon patient request if the prescription is for a schedule II opioid drug. Start Date: 03/14/21 Status: Ordered Medication Dispense Status: Completed Total Allowed Fills: 1 Fills Dispensed: 0 Vitamin D3 50 mcg (2000 intl units) oral tablet, chewable 1 tablet = 50 mcg, By Mouth, Daily, 0 Refills, Maintenance, 11/13/24 9:27:00 AM EDT, Partial fill upon patient request if the prescription is for a schedule II opioid drug. Start Date: 11/13/24 Status: Ordered Medication Dispense Status: Completed Total Allowed Fills: 1 Fills Dispensed: 0 Xolair Prefilled Syringe 75 mg/0.5 mL subcutaneous solution 0 Refills, Maintenance, 11/13/24 9:25:00 AM EDT, Partial fill upon patient request if the prescription is for a schedule II opioid drug. Start Date: 11/13/24 Status: Ordered Medication Dispense Status: Completed Total Allowed Fills: 1 Fills Dispensed: 0 Problem List Condition Confirmation Course Effective Dates Status H ealth Status Informant Anxiety Confirmed Active Asthma Confirmed Active Depression Confirmed Active Hypothyroidism Confirmed Active Morbid obesity due to excess calories Confirmed Active PCOS (polycystic ovarian syndrome) Confirmed Active Severe obesity Confirmed Active Social History Social History Type Response Smoking Status Never smoker entered on: 07/13/16 Sex Sex Representation Female (finding) Patient Care team information Care Team Personnel Name: Khadar Swan MD Position: [facility] Physician -Physician Practices Member Role: Lifetime Consulting Physician Name: Rasta Sun NP Position: Reference Physician Member Role: PCP Address: [address] [place] [address] Telecom: Care Team Related Persons Name: ELINOR DIAZ Insurance Providers Guarantor name: RADHA JOE flo.do Plan Information #: 1 Payer: [employer] Payer Identifier: GUS Member Number: [id number] Group Number: [id number] Subscriber Identifier: [id number] Relationship to Subscriber: self Coverage Type: NA Coverage Verification Date: NA Telecom: NA Address:
--- OUTSIDE RECORDS SUMMARY | 2025-06-21 23:59 | XMS_ITS | Continuity of Care Document ---
Author Organization [facility] Endocrinolo gy and Diabetes Address [address] [place] [address]- Care Team Providers Care Procedures Rn Name Role Phone Dino CORRALES, Rasta Michele Primary Care Physician Encounter [facility] Date(s): 05/22/25 - 06/21/25 [facility] Endocrinology and Diabetes [address] [place] [address]- Encounter Type: Triage Allergies, Adverse Reactions, Alerts Substance Criticality Severity [...] Team Personnel Name: Khadar Swan MD Position: S Physician -Physician Practices Member Role: Lifetime Consulting Physician Name: Rasta Sun NP Position: Reference Physician Member Role: PCP Address: [address] [place] [address] Telecom: Care Team Related Persons Name: ELINOR DIAZ Insurance Providers Guarantor name: RADHA JOE [facility] Information #: 1 Payer: [employer] Payer Identifier: NA Member Number: [id number] Group Number: [id number] Subscriber Identifier: NA Relationship to Subscriber: self Coverage Type: NA Coverage Verification Date: NA Telecom: NA Address:
--- OUTSIDE RECORDS SUMMARY | 2025-06-25 08:07 | XMS_ITS | Continuity of Care Document ---
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 She has no significant symptoms on exam today but does intermittently have some minimal pain for which she rates as 1 out of 10 intensity. I recommend pdyj-put-ryywuok anti-inflammatorie s and to ease back into [...] Details Recorded Time Pain of right wrist 2204531701530 00 Active 2024 Choco Stevenson PA-C [address], [place], [address], [facility] 07:55:39 Tenosynovit is of right radial styloid 8447082822180 9100 Active 2024 Choco Stevenson PA-C [address], [place], [address], [facility] 5 09:39:36 Radial styloid tenosynovit is 03767129 Active 2024 Choco Stevenson PA-C [address], [place], [address], [facility] 5 09:40:12 Problem Notes None recorded. Procedures Surgical History Date Name Laterality Status Provider Name and Address Organization Details Recorded Time JZWrist Tendon Inj Celestone completed Choco Stevenson PA-C [address], [place], [address], [facility] 04/12/2025 [...] ICD10 Code Diagnosis IMO Codes Diagnosis Note [id number] RIKKI Ramos [address]st [address] [place] [address] 05/23/2025 08:18:41 06/07/2025 13:52:41 Tenosynovitis of right radial styloid 5800903632 [id number] M65.4 [id number] Health Concerns Section Related Observation LastModified by Organization Dudley larson LastModified Time None Recorded Concern Status LastModified by Organization Details LastModified Time None Recorded Payers Encounter Date Sequence Insurance Name Policy Number Policy Richardson Covered Member ID Richardson Member ID Guarantor Name 05/23/2025 1 [facility]MEDICAID HMO) RILEY Sutton [id number] Karma Sutton Notes Date Note Type Note Provider Name and Address Organization Details Recorded Time 05/23/2025 text/html ROS as noted in the HPI I am seeing this patient under the supervision of Dr. Sheikh who was available but who did not see the patient Chief Complaint: Follow-up evaluation for right wrist de Quervain's tenosynovitis HPI: 24-year-old qprmg-jpyv-zehkibum female presents today for follow-up evaluation of right wrist de Quervain's tenosynovitis status post splint, diclofenac trial, and recent cortisone injection. She notes she did well with her cortisone injection noting some very minimal residual pain at terminal wrist flexion and with use. Otherwise she is doing significantly better. Choco Stevenson PA-C [address] [facility] [address] [address], [place], [address], [facility] 05/23/2025 08:30:31 OBGyn Episode No OBEpisode recorded.
--- OUTSIDE RECORDS SUMMARY | 2025-06-25 08:07 | XMS_ITS | Continuity of Care Document ---
Author Organization [facility], YULIANA Pernell 1st Floor Address [address] [place] [address] Care Team Providers Care Head Of Business Development Name Role Phone [facility] Primary Care Provider Assessment Encounter Date Assessment Date Assessment LastModified by Organization Details LastModified Time 04/12/2025 04/12/2025 24-year-old wuixm-llyj-qqnee ant female presents today for follow-up evaluation [...] a4ajBk vP9nXo QUaueC m3YtLR FvZlgJ JJ8mAn HZtai3 6s0204 AC0Klb H%2BDV 6KgKiQ trMwF INTERFACE [facility] [address], [place], [address], 03/15/2025 09:14:12 03/15/20 25 03/15/2025 XR, wrist , 3 or more view http:/ [email or web address] ?Encry pted=s hAaTro YD8dLq bEUv6g %2BXZw aYqtaq 0bqfl% 2Fg9IQ a4ajBk vP9nXo QUaueC m3YtLR FvZlgJ JJ8mAn HZtai3 7e8600 AC0Klb H%2BDV 6KgKiQ trMwF INTERFACE [facility] [address], [place], [address], 03/15/2025 09:14:14 Result Notes None recorded. Problems Name Problem SNOMED Code Status Onset Date Resolution Date Notes Provider Name and Address Organization Details Recorded Time Pain of right wrist 4603788436300 00 Active 2024 Choco Stevenson PA-C [address], [place], [address], [facility] 5 07:55:39 Tenosynovit is of right radial styloid 3522100825084 9100 Active 2024 Choco Stevenson PA-C [address], [place], [address], [facility] 5 09:39:36 Radial styloid tenosynovit is 61319488 Active 2024 Choco Stevenson PA-C [address], [place], [address], [facility] 5 09:40:12 Problem Notes None recorded. Procedures Surgical History Date Name Laterality Status Provider Name and Address Organization Details Recorded Time HELENAWrist Tendon Inj Celestone completed Choco Stevenson PA-C [address] [facility] [address], [place], [address], [facility] 04/12/2025 08:39:51 Imaging Results None recorded. Procedure [...] Updated DateTime 04/12/2025 157.48 cm 29.3 kg/m2 95809.78 g Ananth Narayan [facility] 04/12/2025 08:31:29 Social History None recorded. Functional Status None recorded. Mental Status None recorded. Family History Nothing Reported. Medical History No medical history recorded. Gynecological HistoryNo gynecological history recorded. Obstetrics History GPAL:G 0 P 0 0 0 0 Past Encounters Encounter ID Performer Location Encounter Start Date Encounter Closed Date Diagnosis/Indication Diagnosis SNOMED-CT Code Diagnosis ICD10 Code Diagnosis IMO Codes Diagnosis Note [id number] RIKKI Ramos 3rd floor [address] [place] [address] 03/15/2025 09:00:53 03/25/2025 14:16:35 Pain of right wrist 1961676920 55085 M25.531 273900 Radial sty loid tenosynovitis 03153180 M65.4 [id number] The patient is ambulatory , but has [...] y. Tenosynovi tis of right radial styloid 8446821846 6912629 M65.4 [id number] RIKKI Ramso [address] [place] [address] 04/12/2025 08:21:40 04/23/2025 16:41:30 Tenosynovitis of right radial styloid 5692615635 4621086 M65.4 [id number] Health Concerns Section Related Observation LastModified by Organization Detai ls LastModified Time None Recorded Concern Status LastModified by Organization Details LastModified Time None Recorded Payers Encounter Date Sequence Insurance Name Policy Number Policy Richardson Covered Member ID Richardson Member ID Guarantor Name 04/12/2025 1 [facility] - HEALTH NET PLAN (MEDICAID HMO) RILEY Sutton [id number] Kamra Sutton Notes Date Note Type Note Provider Name and Address Organization Details Recorded Time 04/12/2025 text/html ROS as noted in the HPI I am seeing this patient under the supervision of Dr. Childs who was available but who did not see the patient Chief Complaint: Follow-up evaluation for right wrist de Quervain's tenosynovitis HPI: 24-year-old tfmgj-qgfi-nclzeale female presents today for follow-up evaluation of right wrist de Quervain's tenosynovitis status post splint and diclofenac trial. She notes some improvements in her radial sided right wrist pain, but does note persistence of intermittent pain with use. Choco Stevenson PA-C [address] [facility] [address], [place], [address], [facility] [place] 04/12/2025 08:40:30 OBGyn Episode No OBEpisode recorded.
--- OUTSIDE RECORDS SUMMARY | 2025-06-25 08:07 | XMS_ITS | Data Portability ---
Author Organization [facility], YULIANA Prashanth Carmelo PT Address [address] [place] [address] Care Team Providers Care Property Manager Name Role Phone [facility] Primary Care Provider Assessment Encounter Date [...] Not available 03/15/2025 09:40:07 04/12/2025 04/12/2025 24-year-old iwzxv-zkwm-fcuezbs t female presents today for follow-up evaluation [...] Not available 04/12/2025 08:40:18 05/23/2025 05/23/2025 24-year-old aswsg-xqon-oipqohx t female presents today for follow-up evaluation of right wrist de Quervain's tenosynovitis status post splint, diclofenac trial, and recent cortisone injection with near resolution of symptoms. She has no significant symptoms on exam today but does intermittently have some minimal pain for which she rates as 1 out of 10 intensity. I recommend vzno-gey-celmgeh anti-inflammatorie s and to ease back into [...] - 317 3v right wrist 2024 025 [facility], [address], [address], [place], [address], 10:34:53 Medication Orders diclofenac sodium 75 mg tablet,sherine yed release 2024 025 [id number], [address] , [place], [address], 10:34:53 Patient TargetsNo targets recorded. Patient InstructionsNo instructions recorded. Reason for Referral None Reported. Results Created Date Observation Date Name Description Value Unit Range Abnormal Flag Note LastModifiedBy Organization Detail LastModifiedTime 03/15/2003/15/2025 XR, wrist , 3 or more view [email or web address] ?Encry pted=s hAaTro YD8dLq bEUv6g %2BXZw aYqtaq 0bqfl% 2Fg9IQ a4ajBk vP9nXo QUaueC m3YtLR FvZlgJ JJ8mAn HZtai3 3p7179 AC0Klb H%2BDV 6KgKiQ trMwF INTERFACE [facility] [address], [place], [address], 03/15/2025 09:14:12 03/15/2003/15/2025 XR, wrist , 3 or more view [email or web address] ?Encry pted=s hAaTro YD8dLq bEUv6g %2BXZw aYqtaq 0bqfl% 2Fg9IQ a4ajBk vP9nXo QUaueC m3YtLR FvZlgJ JJ8mAn HZtai3 5x4739 AC0Klb H%2BDV 6KgKiQ trMwF INTERFACE [facility] [address], [place], [address], 03/15/2025 09:14:14 Result Notes Documentation Provider Name and Address Organization Details Recorded Time Xr, Wrist, 3 Or More View : [email or web address] Encrypted=foCxYsgMT8qIvjE Uv6g%1PZMymVgvoo7acis%2Fg 5TFs8uuUbjH0gGqHRwiaAm9Ck RWOeFngGUG8dBvHExts84s354 7PG9PnvH%4JIV3LnIwZkiNkM Not Available [facility] 03/15/2025 09:1 4:12 Xr, Wrist, 3 Or More View : [email or web address] Encrypted=pzEcAxlTH3iApsL Uv6g%2KFPztSmjsg5smfr%2Fg 1UHw2jaAuuC3kYuJLkbgIn6Jb HMNtHqeHXI1iQqOEyyl48k488 1EP0FevV%5DNQ6OsHlUghExF Not Available [facility] 03/15/2025 09:1 4:14 Problems Name Problem SNOMED Code Status Onset Date Resolution Date Notes Provider Name and Address Organization Details Recorded Time Pain of right wrist 6509256973070 00 Active 2024 Choco Stevenson PA-C [address], [place], [address], [facility] 07:55:39 Tenosynovit is of right radial styloid 8634498505605 9100 Active 2024 Choco Stevenson PA-C [address], [place], [address], [facility] 09:39:36 Radial styloid tenosynovit is 55313164 Active 2024 Choco Stevenson PA-C [address], [place], [address], [facility] 09:40:12 Problem Notes None recorded. Procedures Surgical History Date Name Laterality Status Provider Name and Address Organization Details Recorded Time JZWrist Tendon Inj Celestone completed Choco Stevenson PA-C [address], [place], [address], [facility] 04/12/2025 08:39:51 Imaging Results [...] Updated DateTime 04/12/2025 157.48 cm 29.3 kg/m2 24260.78 g Ananth Narayan [place] - [facility] 04/12/2025 08:31:29 Social History None recorded. Functional Status None recorded. Mental Status None recorded. Family History Nothing Reported. Medical History No medical history recorded. Gynecological HistoryNo gynecological history recorded. Obstetrics History GPAL:G 0 P 0 0 0 0 Past Encounters Encounter ID Performer Location Encounter Start Date Encounter Closed Date Diagnosis/Indication Diagnosis SNOMED-CT Code Diagnosis ICD10 Code Diagnosis IMO Codes Diagnosis Note [id number] RIKKI Ramos [address] [place] [address] 03/15/2025 09:00:53 03/25/2025 14:16:35 Pain of right wrist 7974924718 09200 M25.531 399094 Radial sty loid tenosynovitis 43670649 M65.4 388902 The patient is ambulatory , but has [...] y. Tenosynovi tis of right radial styloid 9076984743 3729184 M65.4 [id number] RIKKI Ramos [address] [place] [address] 04/12/2025 08:21:40 04/23/2025 16:41:30 Tenosynovitis of right radial styloid 9487479596 7879064 M65.4 93014765 [id number] RIKKI Ramos - [address] [place] [address] 05/23/2025 08:18:41 06/07/2025 13:52:41 Tenosynovitis of right radial styloid 5111947023 6632232 M65.4 [id number] Health Concerns Section Related Observation LastModified by Organization Detai ls LastModified Time None Recorded Concern Status LastModified by Organization Details LastModified Time None Recorded Advance Directives Directive None Recorded Payers Insurance Date Sequence Insurance Name Policy Number Policy Richardson Covered Member ID Richardson Member ID Guarantor Name 06/07/[address] [facility] - HEALTH NET PLAN (MEDICAID HMO) RILEY Sutton [id number] Karma Sutton Notes Date Note Type Note Provider Name and Address Organization Details Recorded Time 03/15/2025 text/html ROS as noted in the HPI I am seeing this patient under the supervision of Dr. Childs who was available but who did not see the patient Chief Complaint: Right wrist pain HPI: 24-year-old rdlat-adlt-lmazqvuv female presents today reporting in December 2024 [...] Stevenson PA-C [address], [place], [address], [facility] 03/15/2025 09:40:24 04/12/2025 text/html ROS as noted in the HPI I am seeing this patient under the supervision of Dr. Childs who was available but who did not see the patient Chief Complaint: Follow-up evaluation for right wrist de Quervain's tenosynovitis HPI: 24-year-old penkm-avil-rpbtbrwg female presents today for follow-up evaluation of right wrist de Quervain's tenosynovitis status post splint and diclofenac trial. She notes some improvements in her radial sided right wrist pain, but does note persistence of intermittent pain with use. Choco Stevenson PA-C [address], [place], [address], [facility] 04/12/2025 08:40:30 05/23/2025 text/html ROS as noted in the HPI I am seeing this patient under the supervision of Dr. Sheikh who was available but who did not see the patient Chief Complaint: Follow-up evaluation for right wrist de Quervain's tenosynovitis HPI: 24-year-old qyjba-ntzt-smfcrzcu female presents today for follow-up evaluation of right wrist de Quervain's tenosynovitis status post splint, diclofenac trial, and recent cortisone injection. She notes she did well with her cortisone injection noting some very minimal residual pain at terminal wrist flexion and with use. Otherwise she is doing significantly better. Choco Stevenson PA-C [address], [place], [address], [facility] 05/23/2025 08:30:31 OBGyn Episode No OBEpisode recorded.
[2025-06-25 08:15] VITALS: BP 118/70; PULSE 82; TEMP 36.6; O2SAT 98; BMI 52.7
--- NOTE | 2025-06-25 08:15 | MHC.OFFWIV ---
Intake Vital Signs 06/25/25 08:15 Height 5 ft Weight 270 lb BMI 52.7 BP 118/70 Blood Pressure Location Lt brachial Position Sitting Pulse 82 Pulse Source Pulse Oximeter Temp 97.9 F Temp Source Oral Pulse Oximetry (%) 98 Oxygen Delivery Method Room Air Intake Visit Reasons: EP hard to breathe, swollen tonsils Intake Note: Patient presents c/o swollen tonsils, hard to breathe x5 days. Patient Tobacco Use Status: Never used Tobacco Allergies peanut Allergy (Intermediate, Verified 06/25/25 08:17) Itching tree nut Allergy (Intermediate, Verified 06/25/25 08:17) Itching cat dander (CATS) Allergy (Unknown, Verified 06/25/25 08:17) RASH, WHEEZING dog dander (DOGS) Allergy (Unknown, Verified 06/25/25 08:17) RASH, WHEEZING egg Allergy (Unknown, Verified 06/25/25 08:17) Itching wheat Allergy (Unknown, Verified 06/25/25 08:17) Gastrointestinal Upset montelukast Adverse Reaction (Mild, Verified 06/25/25 08:17) Depression milk Adverse Reaction (Unknown, Verified 06/25/25 08:17) Gastrointestinal Upset HPI HPI Comments History of Present Illness Details 24-year-old female presents to the walk-in clinic with complaints of upper respiratory infection (URI) symptoms. Patient reports shortness of breath and difficulty breathing, which she attributes to swollen tonsils. She denies fevers, chills, nausea, or vomiting. No additional symptoms reported at this time. [facility] Medical History (Updated 06/25/25 @ 08:43 by Katy Uriostegui NP) Acute pharyngitis Radial styloid tenosynovitis PCOS (polycystic ovarian syndrome) Insomnia Migraine without aura Seizure disorder Pes planus of both feet Family history of systemic lupus erythematosus (SLE) in mother Pain in joint involving multiple sites Obesity Chronic allergic rhinitis BUZZ (obstructive sleep apnea) Asthma Asthma Hypothyroidism Ocular hypertension Prolactinoma Cervical lymphadenopathy Vitamin D deficiency Andrews's disease Microprolactinoma Generalized headaches Anxiety Eczema PCOS (polycystic ovarian syndrome) Pituitary microadenoma with hyperprolactinemia Hypothyroid Asthma Surgical History No history of previous surgery Family History Paternal Grandmother Diabetes Father Asthma Mental health disorder Sister Asthma Mental health disorder Mother Mental health disorder Other Arthritis Social History Housing: House Alcohol intake: never Patient Tobacco Use Status: Never used Tobacco e-Cigarette/Vaping Use: Never Used Second Hand Smoke Exposure: No service: No Current occupational status: unemployed Sexual orientation: Straight/Heterosexual Gender identity: Female Cognitive needs: No Hearing needs: No Vision needs: Yes Female Reproductive History Menstrual Age of Menarche: 12 Review of Systems Const All systems reviewed & are unremarkable except as noted in HPI and below Physical Exam Vital Signs: Last Vital Signs Temp 97.9 F 06/25/25 08:15 Pulse 82 06/25/25 08:15 BP 118/70 06/25/25 08:15 Pulse Ox 98 06/25/25 08:15 Oxygen Delivery Method Room Air 06/25/25 08:15 BMI result Body Mass Index 52.7 Const General: no acute distress Nutritional Appearance: obese Orientation/consciousness: patient oriented x3 HEENT Head: Yes normocephalic Ears: external ears normal and TM abnormal with fluid behind the TM bilateral General nose exam: Nasal discharge present Face and sinus: Yes normal facial exam Mouth: moist mucous membranes and Abnormal oral and palatal mucosa present white patches Throat: Yes abnormal tonsil (+2 enlarged Tonsils) Resp Effort & Inspection: normal respiratory effort Auscultation: clear to auscultation bilaterally, no crackles, no rales, no rhonchi and no wheezes Cardio Heart sounds: S1 normal heart sound present and S2 normal heart sound present Neuro General: patient oriented x3 Results AMB Rapid Strep AMB Rapid Strep Negative Last Edit by Constance Rea CMA on 06/25/25 08:28 Results Reviewed Results Reviewed: Laboratory Last Values Strep Scn Rapid Clinic Negative 06/25/25 08:27 Assessment & Plan Assessment & Plan (1) Acute pharyngitis: Code(s): J02.9 - Acute pharyngitis, unspecified Plan: Rapid Stress Negative. supportive care: Warm saltwater gargles, Adequate hydration, Acetaminophen or ibuprofen as needed for discomfort Ordered shprt course Prednisone Ordered Amox for 7 days. Educated patient on red flag symptoms: Worsening shortness of breath, inability to swallow secretions, muffled voice, drooling, or persistent fever ? advised to seek immediate emergency care if these occur Follow up with PCP or return to clinic if symptoms worsen or fail to improve. Orders: Orders AMB Rapid Strep Screen Today Z13.9 - Encounter for screening, unspecified Medications: New prednisone 50 mg PO DAILY 5 tabs 0RF 5 days J02.9 - Acute pharyngitis, unspecified amoxicillin-pot clavulanate 875-125 mg 1 tab PO BID 14 tabs 0RF 7 days J02.9 - Acute pharyngitis, unspecified Discontinued cephalexin For a UTI found on Urinalysis Discontinued Reason: Patient Completed Course 500 mg PO BID 7 days 14 caps 0RF Coding Level of Care Code Est Pt Level 4 (99828) Diagnoses Acute pharyngitis J02.9 Time Spent (min) 20
== END 2025-06-25 08:51 | disposition home or self-care (01) ==
PROVIDERS: PCP Nurse Practitioner Family; Visit Provider Nurse Practitioner Family
DX: Z13.9 Encounter for screening, unspecified (principal); J02.9 Acute pharyngitis, unspecified

== ENCOUNTER → 2025-06-25 08:03 | Outpatient (BNVA) | payer OTHER, SELFPAY | PROVIDERS: PCP Nurse Practitioner Family | DX: J02.9 Acute pharyngitis, unspecified (principal) | CPT/HCPCS: 87880; 99212 ==